=== PATIENT | female | born 1960 | race Caucasian/White ===

== ENCOUNTER 2024-11-11 10:05 | Inpatient (IN) | payer OTHER, MEDICAID, MEDICARE, SELFPAY ==
[2024-11-11] VITALS (13 sets, daily range): BP systolic 150–187; BP diastolic 74–142; PULSE 82–105; RESP 15–20; TEMP 36.7–37.7; O2SAT 95–100; BMI 27.4
--- NOTE | 2024-11-11 11:20 | EKG_ITS ---
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
--- NOTE | 2024-11-11 11:20 | XR_ITS ---
Examination: AP chest single view Technique one AP portable semiupright chest single view Exam date and time: November 11, 2024 1158 hours Comparison August 14, 2024 INDICATIONS: Loss of consciousness today FINDINGS: Normal heart size No aspiration pneumonia Left axillary surgical clips Prominent osteopenia IMPRESSION: No aspiration pneumonia
--- NOTE | 2024-11-11 11:21 | XR_ITS ---
Examination: CT brain head without contrast. 2-D sagittal coronal reconstructions Date and time of exam:November 11, 2024 1225 hours INDICATIONS: Onset altered mental status today COMPARISON: June 10, 2024 CTDI: vol (mGy):51.1 DLP: (mGycm):1076 Technique: Multiple CT axial sections of the brain have been obtained, 5 mm slice thickness. Contrast has not been administered. 2-D sagittal, coronal reconstructions have been obtained Low dose protocols were performed. One or more of the following dose reduction techniques were used; automated exposure control, adjustment of the mA and/or KV according to patient size, use of iterative reconstruction technique. Findings: No significant ventricular enlargement. Intra-axial or extra-axial hemorrhage density is not seen. No mass effect or midline shift Basal cisterns are not remarkable. Fourth ventricle is midline. Cranial vault intact. Impression: Negative for acute hemorrhage, mass effect or midline shift Clinical correlation advised and follow-up accordingly
--- NOTE | 2024-11-11 11:26 | PC.NURSE ---
Addendum entered by Ashleigh Ortiz RN 11/11/24 12:30: @1130- pt soiled with urine upon arrival ; pt placed in new gown and given bed bath with warm bath cloths. Allevyn foam dressing placed in pt's sacrum for protection; no open ulcers but old closed wounds noted. Original Note: BIBA; per EMS report, pt coming from home s/p AMS; firing pin gauger called EMS on her. Pt connected to monitors at this time.
--- NOTE | 2024-11-11 11:40 | XR_ITS ---
Examination: Bilateral hips, AP pelvis, 5 views Technique: AP, lateral views both hips, AP pelvis, 5 views Exam date and time: November 11, 2024 1158 hours INDICATIONS: Patient fell today with injury to the right hip, right hip pain. FINDINGS: Prominent osteopenia No right or left hip fracture or hip dislocation Bones of the pelvis intact IMPRESSION: No acute hip or pelvic fracture If pain persists, consider CT scan pelvis hips without contrast follow-up
--- NOTE | 2024-11-11 11:41 | XR_ITS ---
Examination: Foot, left, 3 views Technique: AP, oblique, lateral views foot, 3 views Date and time of exam: November 11 2024-0 2 hours INDICATIONS: Patient fell today with injury to the foot, foot pain FINDINGS: Severe osteopenia Suspicious for fracture at the base of the proximal phalanx fifth digit No dislocation IMPRESSION: Recommend coned follow-up images of the toes to confirm nondisplaced fracture at the base of the proximal phalanx fifth digit
--- NOTE | 2024-11-11 11:41 | XR_ITS ---
Examination: Tibia-Fibula, right , 2 views Technique: Tibia-fibula AP lateral 2 views Date and time of exam: November 11 2024-0 3 hours INDICATIONS: Patient fell today with injury of the lower leg, lower leg pain. FINDINGS: Prominent osteopenia No fracture or dislocation No opaque foreign body IMPRESSION: No acute fracture
[2024-11-11 12:02] LABS: Collection Type, Urine Clean Catch
[2024-11-11 12:04] LABS: Lactate (Lactic Acid) 2.4 mMol/L (0.4-2.0)
[2024-11-11 12:05] LABS: Basophils # (Auto) 0.1 Thou/mm3 (0.0-0.2); Basophils % (Auto) 0 % (0-2.5); Eosinophils % (Auto) 0 % (0-10); Hematocrit 42.9 % (36.0-46.0); Hemoglobin 14.6 g/dL (12.0-16.0); Immature Granulocytes % (Auto) 0 % (0-0); Immature Granulocytes Auto 0.07 Thou/mm3 (0.00-0.00); Lymphocytes # (Auto) 1.5 Thou/mm3 (1.0-4.8); Lymphocytes % (Auto) 8 % (10-50); Mean Corpuscular Hemoglobin 29.9 pg (25.0-35.0); Mean Corpuscular Volume 88 fL (80-100); Monocytes # (Auto) 1.7 Thou/mm3 (0.0-0.8); Monocytes % (Auto) 9 % (0-12); Neutrophils # (Auto) 14.7 Thou/mm3 (1.8-7.7); Neutrophils % (Auto) 82 % (37-80); Nucleated Red Blood Cell % 0 /100 WBC (0); Platelet Count 272 Thou/mm3 (140-440); RDW Standard Deviation 48.2 fL (36.4-46.3); Red Blood Count 4.88 Miln/mm3 (4.00-5.20)
[2024-11-11 12:07] LABS: Bilirubin,Urine Negative (Negative); Blood,Urine 3+ (Negative); Clarity,Urine Clear (Clear/Hazy); Color,Urine Lt-Yellow (Lt Yel-Yel); Culture Indicated,Urine Not Indicated; Glucose, Urine 3+ (Negative); Ketones,Urine 3+ (Negative); Leukocyte Esterase,Urine Negative (Negative); Nitrite,Urine Negative (Negative); Protein,Urine 2+ (Neg - Trace); RBC,Urine 2 /hpf (0-3); Specific Gravity,Urine 1.015 (1.001-1.035); Squamous Epithelial Cell,Urine < 1 /hpf (0-5); Urobilinogen,Urine Negative mg/dL (0.0-1.0); WBC,Urine 1 /hpf (0-5)
[2024-11-11] MEDS: SODIUM CHLORIDE 0.9% 1000 ML 1,000 ML 999 ML IV (12:14)
[2024-11-11 12:16] LABS: Amphetamine/Methamp Scrn,U Negative (Negative); Barbiturate Screen,Urine Negative (Negative); Benzodiazepines Screen,Urine Negative (Negative); Benzoylecgonine Screen, Ur Negative (Negative); Fentanyl Screen,Urine Negative (Negative); Opiate Screen,Urine Negative (Negative); THC Screen,Urine Negative (Negative)
--- NOTE | 2024-11-11 12:24 | EDNOTE_ITS ---
<Statement entered by Luzmaria Lozada MD - 11/12/24 06:44> As co-signing physician, I was present and available for consult prn. I concur with the plan and care as documented by the midlevel provider. Altered Mental Status RME/HPI General Chief Complaint: Altered Mental Status Stated Complaint: AMS Time Seen by Provider: 11/11/24 11:22 Source: patient Arrival date/time: 11/11/24 10:05 This is a 63-year-old female with history of hypertension, COPD, cervical cancer, anxiety, PAD s/p left hand amputation, frequent falls and bipolar disorder who presents to the ED via EMS for complaints of altered mental status. The patient was found by her caregiver sitting up by her bed with altered mental status. Reports that she last checked on her November 09. Reports going to her home this morning and found her altered sounded confused vomiting her to call 911. She does report the patient was started on 2 new medications by her PCP which were hydroxyzine 25 mg up to 4 times a day for anxiety, and duloxetine. Caregiver does state that she noticed when she began these medications 3 days ago she noticed her sleepier than normal. Caregiver states she noticed the patient was slumped over her foot was caught on the bed she does have bruising on her left foot and an abrasion on her right lower leg. Patient is responsive, however lethargic. Caregiver also reports she has a fracture to her left toes status post a fall 1 week ago. Mode of arrival: ambulatory Related Data Home Medications ?Medication ?Instructions ?Recorded ?Confirmed levothyroxine 25 mcg tablet 50 mcg PO QDAY #0 tabs 08/18/16 11/11/24 gabapentin 800 mg tablet 800 mg PO TID 03/29/18 11/11/24 acetaminophen 325 mg tablet (Pain 650 mg PO 4XD PRN pain 11/11/24 11/11/24 Relief (acetaminophen)) amlodipine 10 mg tablet 10 mg PO QDAY 11/11/24 11/11/24 carvedilol 6.25 mg tablet 6.25 mg PO BID 11/11/24 11/11/24 duloxetine 60 mg capsule,delayed 60 mg PO QDAY 11/11/24 11/11/24 release hydroxyzine HCl 25 mg tablet 25 mg PO QID PRN Anxiety 11/11/24 11/11/24 isosorbide mononitrate 30 mg 30 mg PO QAM 11/11/24 11/11/24 tablet,extended release 24 hr loperamide 2 mg capsule 2 mg PO Q4H PRN Loose Stool 11/11/24 11/11/24 losartan 50 mg tablet 50 mg PO BID 11/11/24 11/11/24 omeprazole 20 mg capsule,delayed 20 mg PO 1XD 11/11/24 11/11/24 release ondansetron 4 mg disintegrating 4 mg PO 4XD PRN Nausea And Vomiting 11/11/24 11/11/24 tablet tizanidine 4 mg capsule (Zanaflex) 8 mg PO Q8H PRN muscle spasticity 11/11/24 11/11/24 Previous Rx's ?Medication ?Instructions ?Recorded buspirone 30 mg tablet 30 mg PO BID #60 tabs 05/30/24 fexofenadine 180 mg tablet 180 mg PO Q24H PRN allergy #30 tabs 06/10/24 (Taylor Allergy) apixaban 5 mg tablet (Eliquis) 5 mg PO BID #10 tabs 07/03/24 Allergies Allergy/AdvReac Type Severity Reaction Status Date / Time codeine Allergy Severe Rash Verified 08/14/24 07:09 meperidine [From Demerol] Allergy Severe Rash Verified 08/14/24 07:09 Sulfa (Sulfonamide Allergy Severe Rash Verified 08/14/24 07:09 Antibiotics) Review of Systems Review of Systems ROS Unobtainable: unobtainable due to mental status ED Exam Narrative Physical exam: GENERAL APPEARANCE: Lethargic, chronically ill-appearing, HEENT: NC, AT. MMM. EOMI, clear conjunctiva, oropharynx clear. HEART: Normal rate and regular rhythm, normal S1/S1, no m/r/g LUNGS: CTAB, moving air well. No crackles or wheezes are heard. ABDOMEN: Soft, nontender, nondistended with good bowel sounds heard. : Normal BACK: No midline C/T/L spine pain or deformity, No CVAT, no obvious deformity. EXTREMITIES: Abrasion noted to right lower chin area, redness noted to right knee. Discoloration ecchymosis noted to second third fourth digit of left foot. NEUROLOGICAL: GCS of 11 CN not formally tested but appear grossly intact. Skin: Warm and dry without any rash. Expanded Neurological Exam Coma scale eye opening: to voice Coma scale motor response: withdraws to pain Coma scale verbal response: confused Coma scale total: 11 Course Quality Measures none Orders Category Date Time Status COVID-19 Screening Questionnaire NOW Care 11/11/24 14:08 Active Decision to Admit X1 Care 11/11/24 14:08 Completed EKG (ED ONLY) *Do not use* NOW Care 11/11/24 11:[address] head/brain wo con Stat Exams 11/11/24 11:21 Completed EKG (ED Only) Stat Exams 11/11/24 11:20 Draft XR chest 1V portable Stat Exams 11/11/24 11:20 Completed XR foot comp LT min 3V Stat Exams 11/11/24 11:41 Completed XR hip BI w pelvis 3-4V Stat Exams 11/11/24 11:40 Completed XR tibia fibula RT 2V Stat Exams 11/11/24 11:41 Completed B-Type Natriuretic Peptide Stat Lab 11/11/24 11:50 Completed Blood Culture (Lab) Stat Lab 11/11/24 11:50 Received CBC Stat Lab 11/11/24 11:50 Completed CK [Creatine Kinase] Stat Lab 11/11/24 12:24 Completed Comprehensive Metabolic Panel Stat Lab 11/11/24 11:50 Completed Drug Screen,Urine Stat Lab 11/11/24 11:47 Completed FLU A&B [Influenza A & B Rapid Panel] Stat Lab 11/11/24 11:21 Ordered Lactate (Lactic Acid) Stat Lab 11/11/24 11:50 Completed Lipase Stat Lab 11/11/24 11:50 Completed Magnesium Stat Lab 11/11/24 11:50 Completed Partial Thromboplastin Time Stat Lab 11/11/24 11:50 Completed Procalcitonin Stat Lab 11/11/24 11:50 Completed Prothrombin Time with INR Stat Lab 11/11/24 11:50 Completed Troponin I Stat Lab 11/11/24 11:50 Completed Urinalysis Stat Lab 11/11/24 11:47 Completed Urinalysis, C/S if Indicated Stat Lab 11/11/24 11:47 Completed Urine Culture Stat Lab 11/11/24 11:47 Received Labetalol IV [Trandate IV] Med 11/11/24 13:24 Discontinued 10 mg IVP X1 ONE Labetalol IV [Trandate IV] Med 11/11/24 14:24 Discontinued 10 mg IVP X1 ONE Labetalol IV [Trandate IV] Med 11/11/24 13:06 Discontinued 20 mg IVP X1 ONE Sodium Chloride 0.9% 1000 ml [Ns] 1,000 ml Med 11/11/24 11:42 Discontinued IV 999 mls/hr cefTRIAXone [Rocephin] 1,000 mg Med 11/11/24 13:04 Discontinued Sodium Chloride 0.9% (P) [Ns 0.9% (P)] 50 ml IV X1 Vital Signs Vital signs: Vital Signs Temperature 98.4 F 11/11/24 10:52 Pulse Rate 82 11/11/24 10:52 Respiratory Rate 15 11/11/24 10:52 Blood Pressure 150/74 H 11/11/24 10:52 Pulse Oximetry (%) 100 11/11/24 10:52 Oxygen Delivery Method Room Air 11/11/24 10:52 Altered Mental Status MDM Narrative MDM Narrative:: This is a 64-year-old female who presented to the emergency department for altered mental status. After speaking with the patient's caregiver the patient is at risk for polypharmacy due to new medications hydroxyzine and duloxetine added to her regimen. Upon arrival patient is obtunded. It appears she was most likely in the same area or bed laying she smells of strong urine. Appropriate labs imaging and testing are ordered upon arrival. Sepsis was ordered due to the patient's labs and vital signs. Antibiotics and liter of fluid ordered. Patient blood pressure is also elevated and treated. Labs Interpreted by me: CMP: CMP as well as lipase are negative. CBC: Mild leukocytosis, no acute anemia. Pro-Jamal negative. Blood cultures ordered pending. Lactic mildly elevated UA: UA is negative. UDS: Negative, neg acetaminophen and salicylate Cardiac: Troponin elevated at 6.1 and CK-MB 1300, BNP elevated 700+ Radiology viewed and interpreted by me: Chest x-ray: Negative for any pneumonia aspiration pneumonia Other x-ray: CT: For acute bleed or hemorrhage At time of reevaluation 1400 patient is more awake most likely GCS 14. Patient is yelling at nurses leave me alone. At this time I do feel the patient requires from admission due to to 1. altered mental status, 2. possible NSTEMI due to elevated troponin, 3 rule out sepsis, 4. Polypharmacy I will go ahead and call the admitting team for admission. I have 1441 I did go ahead and speak to Dr. Murphy cardiology who will accept to consult on the case. DISPOSITION: Emergency Department nursing documentation was reviewed including triage complaint, associated symptoms, administration of medications, response to therapy and vital signs. Given the history, physical exam, and review of laboratory and imaging studies the patient is determined to be unsafe [facility] and is being moved into the hospital for further diagnostic tests, treatments, stabilization, and monitored response to therapy. I communicated the history, physical exam, pertinent laboratory and imaging studies to the inpatient physician. The inpatient physician has access to electronic copies of all emergency department laboratory testing and imaging studies as well as medications ordered and administered Patient data External records reviewed:: [facility] previous records Clinical information provided by:: EMS and utilization manager Social determinants that could affect healthcare access:: none Patient has the following chronic illnesses:: See HPI How is presenting disease/condition affected by chronic disease/condition?: exacerbated by Evaluation data The following diagnostics were reviewed and interpreted by me:: lab results, radiology exam(s) and EKG tracing(s) Lab and/or radiology exams considered but not ordered:: Yes ordered Interpretation Summary: Examination: Tibia-Fibula, right , 2 views Technique: Tibia-fibula AP lateral 2 views Date and time of exam: November 11 2024-0 3 hours INDICATIONS: Patient fell today with injury of the lower leg, lower leg pain. FINDINGS: Prominent osteopenia No fracture or dislocation No opaque foreign body IMPRESSION: No acute fracture Examination: Foot, left, 3 views Technique: AP, oblique, lateral views foot, 3 views Date and time of exam: November 11 2024-0 2 hours INDICATIONS: Patient fell today with injury to the foot, foot pain FINDINGS: Severe osteopenia Suspicious for fracture at the base of the proximal phalanx fifth digit No dislocation IMPRESSION: Recommend coned follow-up images of the toes to confirm nondisplaced fracture at the base of the proximal phalanx fifth digit Examination: Bilateral hips, AP pelvis, 5 views Technique: AP, lateral views both hips, AP pelvis, 5 views Exam date and time: November 11, 2024 1158 hours INDICATIONS: Patient fell today with injury to the right hip, right hip pain. FINDINGS: Prominent osteopenia No right or left hip fracture or hip dislocation Bones of the pelvis intact IMPRESSION: No acute hip or pelvic fracture If pain persists, consider CT scan pelvis hips without contrast follow-up Examination: CT brain head without contrast. 2-D sagittal coronal reconstructions Date and time of exam:November 11, 2024 1225 hours INDICATIONS: Onset altered mental status today COMPARISON: June 10, 2024 CTDI: vol (mGy):51.1 DLP: (mGycm):1076 Technique: Multiple CT axial sections of the brain have been obtained, 5 mm slice thickness. Contrast has not been administered. 2-D sagittal, coronal reconstructions have been obtained Low dose protocols were performed. One or more of the following dose reduction techniques were used; automated exposure control, adjustment of the mA and/or KV according to patient size, use of iterative reconstruction technique. Findings: No significant ventricular enlargement. Intra-axial or extra-axial hemorrhage density is not seen. No mass effect or midline shift Basal cisterns are not remarkable. Fourth ventricle is midline. Cranial vault intact. Impression: Negative for acute hemorrhage, mass effect or midline shift Clinical correlation advised and follow-up accordingly Examination: AP chest single view Technique one AP portable semiupright chest single view Exam date and time: November 11, 2024 1158 hours Comparison August 14, 2024 INDICATIONS: Loss of consciousness today FINDINGS: Normal heart size No aspiration pneumonia Left axillary surgical clips Prominent osteopenia IMPRESSION: No aspiration pneumonia Medications / Prescriptions Medications or Prescriptions considered but not ordered:: No Medication administrations:: Medication Administration History Discontinued Medications Sodium Chloride (Ns) 1,000 mls @ 999 mls/hr IV .Q1H1M ONE Stop: 11/11/24 12:42 Last Admin: 11/11/24 12:14 Dose: 999 mls/hr Documented By: MAXIMUS Ceftriaxone Sodium 1,000 mg/ (Sodium Chloride) 50 mls @ 100 mls/hr IV X1 ONE Stop: 11/11/24 13:33 Last Infusion: 11/11/24 14:21 Dose: Infused Documented By: Admin: 11/11/24 13:33 Dose: 100 mls/hr Documented By: ONELIA Labetalol HCl (Labetalol Inj 5 Mg/Ml Vial 20 Ml) 20 mg IVP X1 ONE Stop: 11/11/24 13:07 Last Admin: 11/11/24 13:25 Dose: Not Given Documented By: ONELIA Non-Admin Reason: Duplicate Medication on eMAR Labetalol HCl (Labetalol Inj 5 Mg/Ml Vial 20 Ml) 10 mg IVP X1 ONE Stop: 11/11/24 13:25 Last Admin: 11/11/24 13:32 Dose: 10 mg Documented By: ONELIA Labetalol HCl (Labetalol Inj 5 Mg/Ml Vial 20 Ml) 10 mg IVP X1 ONE Stop: 11/11/24 14:25 Last Admin: 11/11/24 15:32 Dose: Not Given Documented By: MAXIMUS Non-Admin Reason: Patient Refused All medications administered and effective Consultations Consultation(s) initiated? (list below): Yes Diagnosis Differential diagnosis altered mental status: alcoholic intoxication, altered mental status, delirium, dementia, hypoglycemia, hyponatremia, subarachnoid hemorrhage and sepsis Most likely diagnosis given after review of the tests above:: 1. altered mental status, 2. possible NSTEMI due to elevated troponin, 3 rule out sepsis, 4. Polypharmacy Admission Indicated Admission indicated?: indicated Admission Request Was there a request for admission?: Yes Admission Attestation Admission request attestation: Discussed case with [] from Hospitalist service regarding admission. Discussed patients ED course, exam findings, labs, and radiology results. The Hospitalist [agrees,declines] to accept the patient for admission. Disposition Plan Disposition Plan: Admit Discharge Plan Plan Patient Disposition: Admit Acute Care w/in Hospital Prescriptions/Referrals Prescriptions/Med Rec: No Action levothyroxine 25 mcg Tablet 50 mcg PO QDAY Qty: 0 gabapentin 800 mg Tablet 800 mg PO TID fexofenadine [Taylor Allergy] 180 mg tablet 180 mg PO Q24H PRN (Reason: allergy) Qty: 30 0RF carvedilol 6.25 mg Tablet 6.25 mg PO BID Rx Instructions: must administer with a meal/food loperamide 2 mg Capsule 2 mg PO Q4H PRN (Reason: Loose Stool) Rx Instructions: administer after each loose stool until symptoms controlled; do not exceed 8 mg per 24 hrs isosorbide mononitrate 30 mg Tablet Extended Release 24 Hr 30 mg PO QAM amlodipine 10 mg Tablet 10 mg PO QDAY omeprazole 20 mg capsule,delayed release(DR/EC) 20 mg PO 1XD hydroxyzine HCl 25 mg Tablet 25 mg PO QID PRN (Reason: Anxiety) ondansetron 4 mg tablet,disintegrating 4 mg PO 4XD PRN (Reason: Nausea And Vomiting) duloxetine 60 mg Capsule,Delayed Release(Dr/Ec) 60 mg PO QDAY losartan 50 mg tablet 50 mg PO BID acetaminophen [Pain Relief (acetaminophen)] 325 mg tablet 650 mg PO 4XD PRN (Reason: pain) tizanidine [Zanaflex] 4 mg capsule 8 mg PO Q8H PRN (Reason: muscle spasticity) buspirone 30 mg tablet 30 mg PO BID Qty: 60 2RF Eliquis 5 mg tablet 5 mg PO BID Qty: 10 0RF Referrals: David Dietz [Primary Care Provider] - In 1 week Problem List Clinical Impression: AMS (altered mental status), Polypharmacy, Elevated troponin, Non-ST elevation LA (NSTEMI) Patient/Caregiver Discharge Instructions Print Language: Mongolian Stand Alone Forms: Mila Award Info., Patient Portal Info Letter
[2024-11-11 12:26] LABS: INR 1.1 (0.9-1.3); Partial Thromboplastin Time 24.3 Seconds (22.0-36.0); Prothrombin Time 11.9 Seconds (9.0-12.2)
[2024-11-11 12:41] LABS: Alanine Aminotransferase 31 U/L (10-49); Albumin, Serum 4.8 gm/dL (3.4-4.8); Albumin/Globulin Ratio 1.8 (1.2-2.2); Alkaline Phosphatase 108 U/L (46-116); Anion Gap 9 (7-16); Aspartate Amino Transferase 162 U/L (0-34); B-Type Natriuretic Peptide 700 pg/mL (0-100); BUN/Creatinine Ratio 21 Ratio (12-20); Bilirubin,Total 0.5 mg/dL (0.3-1.2); Blood Urea Nitrogen 17 mg/dL (9-23); Calcium 10.3 mg/dL (8.3-10.6); Calcium (Corrected) 10.3 mg/dL (8.5-10.1); Carbon Dioxide 25.3 mMol/L (20.0-31.0); Chloride 105 mMol/L (98-107); Creatinine (Component) 0.8 mg/dL (0.6-1.3); Estimated Creatinine Clearance 65.9 mL/min (>60); Globulin 2.7 gm/dL (2.3-3.5); Glucose 259 mg/dL (74-106); Lipase 22 U/L (12-53); Magnesium 1.6 mg/dL (1.6-2.6); Osmolality,Calculated 288 (275-295); Potassium 3.3 mMol/L (3.4-5.1); Procalcitonin 0.14 ng/ml (0.0-0.49); Sodium 139 mMol/L (136-145); Total Protein 7.5 gm/dL (5.7-8.2); eGFR > 60 See Note
[2024-11-11 12:44] LABS: Troponin I 6.154 ng/mL (0.0-0.045)
[2024-11-11 12:47] LABS: Creatine Kinase > 1300 U/L (34-171)
[2024-11-11] MEDS: LABETALOL INJ 5 MG/ML VIAL 20 ML 10 MG IVP (13:32)
[2024-11-11] MEDS: cefTRIAXone 1,000 MG in SODIUM CHLORIDE 0.9% (P) 50 ML 100 MG IV (13:33)
--- NOTE | 2024-11-11 14:41 | PC.NURSE ---
Pt refuses to straighten left arm to open vein for IVF infusion. Pt continues to say nope, nope, nope .
--- NOTE | 2024-11-11 14:45 | PC.NURSE ---
RN AT BEDSIDE; PT REFUSING MEDICATIONS AT THIS TIME. PT L ARM WITH THE IV, PT CONTINUES TO BEND L ARM; IV BOLUS UNABLE TO INFUSE AT THIS TIME. PT CONTINUES TO YELL AT PT, STATING, NO, DO YOU WANT ME TO POP OFF ON YOU? @7500- PRISCA Olvia ASPHALT SPREADER AT BEDSIDE AND MADE AWARE THAT PT IS REFUSING CARE AT THIS TIME. @3463- DR. BELTRAN AT BEDSIDE TALKING TO PT. PT STILL REFUSING CARE; PER DR. BELTRAN, PT WANTS TO LEAVE AMA; RECOMMENDED TO STAY FOR ADMISSION, BUT REFUSING AT THIS TIME.
--- NOTE | 2024-11-11 14:55 | PC.NURSE ---
Addendum entered by Amaya Hernandez RN 11/11/24 15:21: @1521- RN CALLED PT'S SON AGAIN VIA PHONE, NO ANSWER. UNABLE TO LEAVE VOICEMAIL. Original Note: RN ATTEMPTED TO CONTACT PT'S SON, CAROL, VIA PHONE; NO ANSWER AT THIS TIME.
[2024-11-11 14:59] LABS: Reflex Lactate? Y
--- NOTE | 2024-11-11 15:11 | ESCONSULT_ITS ---
<Statement entered by Sherri Negrete MD - 11/16/24 14:16> I reviewed above note and agree with findings and plans. I have also personally examined the patient with medicine team and went over assessment and plan with medical team including legal internship and resident physician. HPI Data of Consult Patient: new to practice Consult date: 11/11/24 Attending Provider: Sherri Negrete Primary Care Provider: David Dietz Consult Narrative Reason for consult: Altered mentation and elevated troponins History of present illness: Ms. Jacobs is a 64-year-old female with past medical history of emr-[id number] type 2 diabetes, hypertension, COPD, cervical cancer, anxiety, peripheral arterial disease status post left hand amputation and history of bipolar disorder that was obtained from chart review came to the [facility] brought in by EMS with a chief complaint of altered mentation. History was obtained from the chart and emergency room provider. Patient was at home without supervision and was found by her caregiver to be drinking water out of her shoes and exhibiting odd behaviors. Her director business systems states that she has recently been prescribed new medications by PCP and that potentially that caused her altered mentation. She was brought in by EMS and while she remained altered they were able to obtain labs which exhibited a leukocytosis elevated troponin of 6.154 elevated creatinine kinase elevated BNP and transaminitis. Patient was also noted to have hypertension on vitals with blood pressure being in the 180s. Cardiology was consulted by emergency room and recommended that the patient is admitted for further workup. Primary team went down to obtain history from the patient but patient refused to participate stating that she would like to be left alone. She also stated that she would not like to be admitted and would like to go home. We recommended to the patient that she is admitted for further workup due to the elevated troponins and potential rhabdomyolysis but the patient refused stating that she would like to go home. Multiple attempts were made to reach out to patient's next of kin but [facility] Patient is primary decision- maker and is coherent and is refusing to participate in history taking, physical exam and medical plan. We recommend patient is admitted to the hospital but due to her refusal we cannot force her to obtain medical care. Please feel free to consult internal medicine primary team if patient agrees to accept medical care Plan of care discussed with supervising attending Dr. Caden Constantino.D. PGY-3 cc:: cc: Exam Vital Signs Temp Pulse Resp BP Pulse Ox O2 Del Method 99.0 F 95 20 187/93 H 96 Room Air 11/11/24 12:36 11/11/24 14:46 11/11/24 14:46 11/11/24 14:46 11/11/24 14:46 11/11/24 14:46 Results Labs 11/11/24 11:50 11/11/24 11:50 Labs: Short CBC 11/11/24 Range/Units 11:50 WBC 18.0 H (3.6-11.0) Thou/mm3 Hgb 14.6 (12.0-16.0) g/dL Hct 42.9 (36.0-46.0) % Plt Count 272 (140-440) Thou/mm3 BMP 11/11/24 11:50 Sodium 139 Potassium 3.3 L Chloride 105 Carbon Dioxide 25.3 BUN 17 Creatinine 0.8 Glucose 259 H Calcium 10.3 Cardiac Enzymes 11/11/24 11/11/24 Range/Units 11:50 12:24 Total Creatine Kinase > 1300 H (34-171) U/L Troponin I 6.154 H* (0.0-0.045) ng/mL Liver Function 11/11/24 Range/Units 11:50 Total Bilirubin 0.5 (0.3-1.2) mg/dL AST 162 H (0-34) U/L ALT 31 (10-49) U/L Alkaline Phosphatase 108 (46-116) U/L Albumin 4.8 (3.4-4.8) gm/dL Urine 11/11/24 Range/Units 11:47 Urine Color Lt-Yellow (Lt Yel-Yel) Urine Clarity Clear (Clear/Hazy) Urine pH 6.0 (5.0-7.0) Ur Specific [place] 1.015 (1.001-1.035) Urine Protein 2+ A (Neg - Trace) Urine Glucose (UA) 3+ A (Negative) Quality Measures Quality Measures none Advance care planning discussed with:: other Medications Home Medications and Allergies Home Medications ?Medication ?Instructions ?Recorded ?Confirmed ?Type levothyroxine 25 mcg tablet 50 mcg PO QDAY #0 tabs 08/18/16 11/11/24 History gabapentin 800 mg tablet 800 mg PO TID 03/29/18 11/11/24 History acetaminophen 325 mg tablet (Pain 650 mg PO 4XD PRN pain 11/11/24 11/11/24 History Relief (acetaminophen)) amlodipine 10 mg tablet 10 mg PO QDAY 11/11/24 11/11/24 History carvedilol 6.25 mg tablet 6.25 mg PO BID 11/11/24 11/11/24 History duloxetine 60 mg capsule,delayed 60 mg PO QDAY 11/11/24 11/11/24 History release hydroxyzine HCl 25 mg tablet 25 mg PO QID PRN Anxiety 11/11/24 11/11/24 History isosorbide mononitrate 30 mg 30 mg PO QAM 11/11/24 11/11/24 History tablet,extended release 24 hr loperamide 2 mg capsule 2 mg PO Q4H PRN Loose Stool 11/11/24 11/11/24 History losartan 50 mg tablet 50 mg PO BID 11/11/24 11/11/24 History omeprazole 20 mg capsule,delayed 20 mg PO 1XD 11/11/24 11/11/24 History release ondansetron 4 mg disintegrating 4 mg PO 4XD PRN Nausea And Vomiting 11/11/24 11/11/24 History tablet tizanidine 4 mg capsule (Zanaflex) 8 mg PO Q8H PRN muscle spasticity 11/11/24 11/11/24 History Allergies Allergy/AdvReac Type Severity Reaction Status Date / Time codeine Allergy Severe Rash Verified 08/14/24 07:09 meperidine [From Demerol] Allergy Severe Rash Verified 08/14/24 07:09 Sulfa (Sulfonamide Allergy Severe Rash Verified 08/14/24 07:09 Antibiotics) Visit Medications Discontinued Medications Sodium Chloride (Ns) 1,000 mls @ 999 mls/hr IV .Q1H1M ONE Stop: 11/11/24 12:42 Last Admin: 11/11/24 12:14 Dose: 999 mls/hr Ceftriaxone Sodium 1,000 mg/ (Sodium Chloride) 50 mls @ 100 mls/hr IV X1 ONE Stop: 11/11/24 13:33 Last Infusion: 11/11/24 14:21 Dose: Infused Labetalol HCl (Labetalol Inj 5 Mg/Ml Vial 20 Ml) 20 mg IVP X1 ONE Stop: 11/11/24 13:07 Last Admin: 11/11/24 13:25 Dose: Not Given Labetalol HCl (Labetalol Inj 5 Mg/Ml Vial 20 Ml) 10 mg IVP X1 ONE Stop: 11/11/24 13:25 Last Admin: 11/11/24 13:32 Dose: 10 mg Labetalol HCl (Labetalol Inj 5 Mg/Ml Vial 20 Ml) 10 mg IVP X1 ONE Stop: 11/11/24 14:25
--- NOTE | 2024-11-11 18:28 | PD.RESHP ---
Documentation for date of: 11/11/24 [facility] History of Present Illness History of present illness: MONE Jacobs is a 64-year-old female with a past medical history of type 2 diabetes mellitus, hypertension, COPD, peripheral arterial disease status post left hand amputation, anxiety, and bipolar disorder who presents to the ED with altered mentation. Patient continues to have altered mentation during encounter, this history obtained from chart review. She was found at home by her oracle security consultant, Kimberly, who had not seen her since 11/09. Fire Controlman states that when she had found her, patient was exhibiting odd behaviors. Of note, oracle security consultant also states that patient was recently prescribed new medications by PCP (hydroxyzine, duloxetine) and has noticed her to be sleepier than normal. Significant labs showed leukocytosis, troponin 6.15, BNP 700, CK > 1300, hypokalemia (3.3). Due to elevated troponin and BNP as well as elevated BP of 180/110, cardiology was consulted by ED, who recommended patient to be admitted for treatment of ACS. After talking to cardiology, patient agreed to be admitted. Review of Systems Review of Systems ROS Unobtainable: unobtainable due to mental status Exam Vital Signs Temp Pulse Resp BP Pulse Ox O2 Del Method 98.0 F 92 17 159/85 H 97 Room Air 11/11/24 18:12 11/11/24 18:12 11/11/24 18:12 11/11/24 18:12 11/11/24 18:12 11/11/24 18:12 Narrative Exam General: in no acute distress, responds to questions but repeats answers HEENT: NC/AT, mucous membranes moist, bilateral sclera anicteric Cardiovascular: regular rate and rhythm, S1/S2 present, no murmurs appreciated Pulmonary: clear to auscultation bilaterally, no rales/rhonchi/wheezes Abdominal: soft, non-tender, non-distended, no rebound/guarding, normal bowel sounds present Musculoskeletal: left hand amputation Skin: warm and dry, intact, no rashes Neuro: CN II-XII intact, no focal deficits Results: Labs 11/12/24 07:10 11/12/24 07:10 Labs: Short CBC 11/11/24 Range/Units 11:50 WBC 18.0 H (3.6-11.0) Thou/mm3 Hgb 14.6 (12.0-16.0) g/dL Hct 42.9 (36.0-46.0) % Plt Count 272 (140-440) Thou/mm3 BMP 11/11/24 11:50 Sodium 139 Potassium 3.3 L Chloride 105 Carbon Dioxide 25.3 BUN 17 Creatinine 0.8 Glucose 259 H Calcium 10.3 Cardiac Enzymes 11/11/24 11/11/24 Range/Units 11:50 12:24 Total Creatine Kinase > 1300 H (34-171) U/L Troponin I 6.154 H* (0.0-0.045) ng/mL Liver Function 11/11/24 Range/Units 11:50 Total Bilirubin 0.5 (0.3-1.2) mg/dL AST 162 H (0-34) U/L ALT 31 (10-49) U/L Alkaline Phosphatase 108 (46-116) U/L Albumin 4.8 (3.4-4.8) gm/dL Urine 11/11/24 Range/Units 11:47 Urine Color Lt-Yellow (Lt Yel-Yel) Urine Clarity Clear (Clear/Hazy) Urine pH 6.0 (5.0-7.0) Ur Specific [place] 1.015 (1.001-1.035) Urine Protein 2+ A (Neg - Trace) Urine Glucose (UA) 3+ A (Negative) Quality Measures Quality Measures none Advance care planning discussed with:: patient Medications Home Medications and Allergies Home Medications ?Medication ?Instructions ?Recorded ?Confirmed ?Type levothyroxine 25 mcg tablet 50 mcg PO QDAY #0 tabs 08/18/16 11/11/24 History gabapentin 800 mg tablet 800 mg PO TID 03/29/18 11/11/24 History acetaminophen 325 mg tablet (Pain 650 mg PO 4XD PRN pain 11/11/24 11/11/24 History Relief (acetaminophen)) amlodipine 10 mg tablet 10 mg PO QDAY 11/11/24 11/11/24 History carvedilol 6.25 mg tablet 6.25 mg PO BID 11/11/24 11/11/24 History duloxetine 60 mg capsule,delayed 60 mg PO QDAY 11/11/24 11/11/24 History release hydroxyzine HCl 25 mg tablet 25 mg PO QID PRN Anxiety 11/11/24 11/11/24 History isosorbide mononitrate 30 mg 30 mg PO QAM 11/11/24 11/11/24 History tablet,extended release 24 hr loperamide 2 mg capsule 2 mg PO Q4H PRN Loose Stool 11/11/24 11/11/24 History losartan 50 mg tablet 50 mg PO BID 11/11/24 11/11/24 History omeprazole 20 mg capsule,delayed 20 mg PO 1XD 11/11/24 11/11/24 History release ondansetron 4 mg disintegrating 4 mg PO 4XD PRN Nausea And Vomiting 11/11/24 11/11/24 History tablet tizanidine 4 mg capsule (Zanaflex) 8 mg PO Q8H PRN muscle spasticity 11/11/24 11/11/24 History Allergies Allergy/AdvReac Type Severity Reaction Status Date / Time codeine Allergy Severe Rash Verified 08/14/24 07:09 meperidine [From Demerol] Allergy Severe Rash Verified 08/14/24 07:09 Sulfa (Sulfonamide Allergy Severe Rash Verified 08/14/24 07:09 Antibiotics) Visit Medications Sodium Chloride (Ns) 1,000 mls @ 150 mls/hr IV .Q6H40M ALAN Stop: 11/12/24 07:34 Discontinued Medications Sodium Chloride (Ns) 1,000 mls @ 999 mls/hr IV .Q1H1M ONE Stop: 11/11/24 12:42 Last Admin: 11/11/24 12:14 Dose: 999 mls/hr Ceftriaxone Sodium 1,000 mg/ (Sodium Chloride) 50 mls @ 100 mls/hr IV X1 ONE Stop: 11/11/24 13:33 Last Infusion: 11/11/24 14:21 Dose: Infused Labetalol HCl (Labetalol Inj 5 Mg/Ml Vial 20 Ml) 20 mg IVP X1 ONE Stop: 11/11/24 13:07 Last Admin: 11/11/24 13:25 Dose: Not Given Labetalol HCl (Labetalol Inj 5 Mg/Ml Vial 20 Ml) 10 mg IVP X1 ONE Stop: 11/11/24 13:25 Last Admin: 11/11/24 13:32 Dose: 10 mg Labetalol HCl (Labetalol Inj 5 Mg/Ml Vial 20 Ml) 10 mg IVP X1 ONE Stop: 11/11/24 14:25 Last Admin: 11/11/24 15:32 Dose: Not Given Assessment & Plan Plan MONE Jacobs is a 64-year-old female with a past medical history of type 2 diabetes mellitus, hypertension, COPD, peripheral arterial disease status post left hand amputation, anxiety, and bipolar disorder who is admitted for work-up of ACS. #Acute coronary syndrome workup #Elevated troponins EKG without signs of ST changes ? Cardiology consulted, appreciate recommendations ? Planned [employer] tomorrow ? N.p.o. after midnight ? Trend troponins ? Heparin drip ? Aspirin, statin ? Metoprolol 50 mg p.o. twice daily #Altered mental status #? Rhabdomyolysis versus neuroleptic malignant syndrome Patient started 2 new medications, including hydroxyzine and duloxetine Total CK greater than 1300, UA showed 3+ blood but no RBCs ? NS at 150 mL/h (total 2 bags) #Hypokalemia K 3.3 on admission, repleted with 20 mEq ? Monitor labs #Type 2 diabetes mellitus ? SSI ? Follow-up A1c #Bipolar disorder #Anxiety Med rec done but will hold off on antipsychotic medications as may be contributing patient presentation ? Resume as deemed appropriate Hospital management: Disposition: Pending cardiac cath tomorrow Fluids: NS at 150 mL/h Diet: N.p.o. after midnight Lines: Peripheral DVT prophylaxis: Heparin drip GI prophylaxis: Pantoprazole [place]: Placed CODE STATUS: full code ----- Plan discussed with attending physician Dr. Gardner and senior resident physician Dr. Arely Aguilera MD PGY-1 Internal Medicine Attending Provider Attestation/Addendum I attest that I was physically present for the evaluation, physical examination, lab and imaging review of the patient with the residents. I discussed the case with the residents and agree with the findings and plans of care as documented above. Patient is a 64-year-old female with a past medical history of type 2 diabetes mellitus, hypertension, COPD, peripheral arterial disease status post left hand amputation, anxiety, and bipolar disorder who presented with Altered mental status. She was fond by her oracle security consultant showing odd behaviours. She is noted to have some bruises on her lower extremities. In the ED she was found to have levated troponin, CK, WBC and was hypokalemic. Cardiology was consulted, recommended admission for Acute coronary syndrome. We will start heparin drip, aspirin, statin, beta jose manuel. IV hydration for Rhabdomyolysis. Dylan Gardner MD
[2024-11-11] MEDS: HEPARIN SOD INJ 5000 UNIT/ML VIAL 4000 UNIT IV (18:45)
[2024-11-11] MEDS: ASPIRIN EC 81 MG TABEC PO (18:45)
[2024-11-11] MEDS: METOPROLOL TARTRATE 25 MG TABLET 50 MG PO (18:45)
[2024-11-11] MEDS: Heparin/D5w 25K 250 ML Ivpb 25,000 UNIT/250 ML BAG 8.437 UNIT IV (18:48)
[2024-11-11] MEDS: SODIUM CHLORIDE 0.9% 1000 ML 1,000 ML 150 ML IV (18:49)
[2024-11-11] MEDS: POTASSIUM CHL 10 mEq IVPB 10 MEQ/100 ML BAG 100 MEQ IV ×2 (18:52→20:25)
--- NOTE | 2024-11-11 19:32 | PC.NURSE ---
Pt refusing catheter at this time. Will attempt again at later point.
[2024-11-11] MEDS: INSULIN LISPRO (AdmeLOG) 1 UNIT/0.01 ML UNIT SC (20:35)
[2024-11-11] MEDS: hydrALAZINE INJ 20 MG/ML VIAL 10 MG IV (20:42)
--- NOTE | 2024-11-11 20:44 | PC.NURSE ---
Attempted to give pt PO Lipitor but she refused. Pt swatted at RN saying no, I don't want it. Leave me alone .
--- NOTE | 2024-11-11 21:41 | PC.NURSE ---
pt had bm. new linen, purewick and brief put into place. pt repositioned with pillows in pressure point areas.
--- NOTE | 2024-11-11 22:39 | PC.NURSE ---
Pt agreed to manuel. Tolerating well.
--- NOTE | 2024-11-11 23:32 | ESCONSULT_ITS ---
RE: MONE MOODY : 1960 DATE OF CONSULTATION: 11/11/2024 CONSULTING PHYSICIAN: Hospitalist. REASON FOR CONSULTATION: Evaluation of elevated troponin and possible myocardial infarction. CHIEF COMPLAINT: Altered mental status and chest pain. HISTORY OF PRESENT ILLNESS: The patient is a 64-year-old female with a past medical history of hypertension, diabetes, COPD, peripheral arterial disease, status post left hand amputation, anxiety, bipolar disorder and other multiple issues. Apparently was found by her home fulfillment specialist with confusion and she was behaving oddly. She apparently was given new medication hydroxyzine and duloxetine by primary care physician. She has been sleepy since then. When I examined her, her blood pressure was high. She was able to give me some history. She says she has had recurrent chest pressure and chest pain in the last few days. Today also she had episode of chest pain in substernal region, left-sided chest pain. Troponin was significantly elevated at 6.5, . BNP was elevated as well. The patient is comfortable now, not having any complaints. EKG showed nonspecific changes. Other lab data included a white count elevation of 18,000, maybe underlying infection as well. Because of these findings and possible myocardial infarction, admitted to the hospital with IV anticoagulation and possible angiogram depending on the clinical symptoms. ALLERGIES: NONE. MEDICATIONS AT HOME: She is on multiple medications at home. 1. Eliquis is listed, not sure why she is on. 2. She is also on carvedilol 6.25 twice daily. 3. Amlodipine 10 daily. 4. Losartan was also listed, 50 mg twice daily for hypertension. 5. Isosorbide mononitrate 30 mg daily, suggesting the patient may be having chest pain. 6. Duloxetine 60 mg daily. 7. Hydroxyzine also was given. 8. Tizanidine 4 mg daily. PAST MEDICAL HISTORY: Hypertension, diabetes, hypercholesterolemia, history of type 2 diabetes mellitus, bipolar disorder, anxiety. REVIEW OF SYSTEMS: CARDIOVASCULAR: History of recurrent chest pain and shortness of breath. GASTROINTESTINAL: No history of nausea or vomiting. GENITOURINARY: No history of frequency or dysuria. PHYSICAL EXAMINATION: GENERAL: A well-nourished, acutely ill, chronically ill female. Alert, awake, in no acute distress. VITAL SIGNS: Blood pressure 158/88, pulse rate is 85, respiratory rate 18, temperature normal. HEENT: Head is atraumatic and normocephalic. Eyes normal. ENT normal. NECK: Supple. No JVD. Carotid pulse felt, but no bruits. CHEST: Symmetrical. LUNGS: Clear. HEART: S1 and S2 regular. No murmur or gallops. ABDOMEN: Thin and soft. EXTREMITIES: Mild edema. GENITOURINARY AND RECTAL: Not performed. Electrocardiogram shows sinus rhythm, nonspecific changes. Cardiac enzymes show troponin elevated at 6.5. IMPRESSION/ASSESSMENT: 1. Chest pain with acute troponin elevation of 6.5, non-ST segment elevation myocardial infarction. 2. Hypertension. 3. Anxiety and bipolar disorder. 4. Confusion, possibly drug related. 5. Diabetes mellitus. 6. Hypercholesterolemia. RECOMMENDATIONS: I would recommend the patient be admitted to hospital. Aspirin and heparin. Treat with beta-jose manuel, metoprolol 50 mg daily, TONJA inhibitors and also restart the patient on losartan 50 mg b.i.d. and IV heparin. If the patient continues to have chest pain or further enzyme elevation or EKG changes, we will do coronary angiogram tomorrow. Otherwise, treat underlying possible infection or sepsis. There is mild lactic acidosis and white count elevation and possibly defer angiogram later on. Depending on the clinical picture, we will decide whether we should do angiogram tomorrow or later on. DT: 22:46:57 TT: 23:27:00 Ref: [id number] - TID: [id number]
--- NOTE | 2024-11-11 23:50 | PC.NURSE ---
Pt arrived to unit @0948. Pt only alert to self and location. Unable to obtain medical history from patient to complete admission questions at this time.
--- NOTE | 2024-11-11 23:54 | PC.NURSE ---
Addendum entered by Gisselle Figueredo RN 11/12/24 01:13: Per Dr. Bravo ok for lab to draw am 0500 labs with scheduled 0620 trop lab this am. Addendum entered by Gisselle Figueredo RN 11/12/24 01:12: Dr. Bravo called and made aware admission questions not able to be completed at this time due to pts ams, made her aware pt refusing perales cath insertion. Original Note: Pt arrived to unit @ 2307; Pt only alert to self and location; attempted to ask questions regarding medical history but patient forgetful at this time and not able to answer medical questions appropriately. Pt observed to have abrasions and small blisters to Lower extremities, pt not able to remember what happened. Pictures taken of affected areas. Pt does not remember caretakers phone number; Attempted to call david Neely but he states he is not sure about pts medical history and not able to provide information. He also states he does not know care takers phone number.
[2024-11-12] VITALS (7 sets, daily range): BP systolic 132–164; BP diastolic 70–103; PULSE 59–81; RESP 13–79; TEMP 35.9–36.5; O2SAT 93–98; BMI 34.0
[2024-11-12 01:10] LABS: Partial Thromboplastin Time 34.5 Seconds (22.0-36.0)
[2024-11-12] MEDS: HEPARIN SOD INJ 5000 UNIT/ML VIAL 4000 UNIT IV (01:34)
[2024-11-12 01:35] LABS: Troponin I 6.018 ng/mL (0.0-0.045)
[2024-11-12] MEDS: SODIUM CHLORIDE 0.9% 1000 ML 1,000 ML 150 ML IV (01:45)
[2024-11-12 02:37] LABS: Influenza A Ag Negative; Influenza B Ag Negative
[2024-11-12 07:26] LABS: Basophils % (Auto) 0 % (0-2.5); Eosinophils % (Auto) 0 % (0-10); Hematocrit 41.7 % (36.0-46.0); Hemoglobin 14.2 g/dL (12.0-16.0); Immature Granulocytes % (Auto) 0 % (0-0); Immature Granulocytes Auto 0.06 Thou/mm3 (0.00-0.00); Lactate (Lactic Acid) 1.6 mMol/L (0.4-2.0); Lymphocytes # (Auto) 2.4 Thou/mm3 (1.0-4.8); Lymphocytes % (Auto) 16 % (10-50); Mean Corpuscular HGB Conc 34.1 g/dl (31.0-37.0); Mean Corpuscular Hemoglobin 30.3 pg (25.0-35.0); Mean Corpuscular Volume 89 fL (80-100); Monocytes # (Auto) 1.4 Thou/mm3 (0.0-0.8); Monocytes % (Auto) 10 % (0-12); Neutrophils # (Auto) 10.5 Thou/mm3 (1.8-7.7); Neutrophils % (Auto) 73 % (37-80); Nucleated Red Blood Cell % 0 /100 WBC (0); Platelet Count 245 Thou/mm3 (140-440); RDW Standard Deviation 48.8 fL (36.4-46.3); Red Blood Count 4.68 Miln/mm3 (4.00-5.20); White Blood Count 14.4 Thou/mm3 (3.6-11.0)
[2024-11-12 07:44] LABS: Glucose Estimated Average 160 mg/dL (80-131); Hemoglobin A1C 7.2 % Hgb (4.8-6.0)
[2024-11-12 07:58] LABS: INR 1.1 (0.9-1.3); Partial Thromboplastin Time 64.6 Seconds (22.0-36.0); Prothrombin Time 11.9 Seconds (9.0-12.2)
[2024-11-12 08:08] LABS: Alanine Aminotransferase 56 U/L (10-49); Albumin, Serum 4.5 gm/dL (3.4-4.8); Albumin/Globulin Ratio 1.9 (1.2-2.2); Alkaline Phosphatase 94 U/L (46-116); Anion Gap 9 (7-16); Aspartate Amino Transferase 167 U/L (0-34); BUN/Creatinine Ratio 17 Ratio (12-20); Bilirubin,Total 0.6 mg/dL (0.3-1.2); Blood Urea Nitrogen 12 mg/dL (9-23); Calcium 9.6 mg/dL (8.3-10.6); Calcium (Corrected) 9.6 mg/dL (8.5-10.1); Carbon Dioxide 24.8 mMol/L (20.0-31.0); Cardiac Risk Estimate 4.6 RATIO (3.7-5.6); Chloride 107 mMol/L (98-107); Cholesterol 188 mg/dL (132-200); Creatinine (Component) 0.7 mg/dL (0.6-1.3); Estimated Creatinine Clearance 83.8 mL/min (>60); Globulin 2.4 gm/dL (2.3-3.5); Glucose 196 mg/dL (74-106); HDL Cholesterol 41 mg/dL (40-60); LDL Cholesterol,Calculated 108 mg/dL (0-130); Magnesium 1.6 mg/dL (1.6-2.6); Osmolality,Calculated 285 (275-295); Phosphorous 1.8 mg/dL (2.4-5.1); Potassium 2.8 mMol/L (3.4-5.1); Sodium 141 mMol/L (136-145); Total Protein 6.9 gm/dL (5.7-8.2); Triglycerides 197 mg/dL (30-150); eGFR > 60 See Note
[2024-11-12 08:09] LABS: Troponin I 5.111 ng/mL (0.0-0.045)
[2024-11-12 08:55] LABS: Creatine Kinase 5231 U/L (34-171)
--- NOTE | 2024-11-12 09:41 | PC.SS ---
Patient Rosi Jacobs is a 64 Year old female admitted for Altered Mental Status. SS met with patient at bedside in order to complete initial assessment. Patient was able to answer questions, however patient reported she was having Chest pain at the time of the encounter. SS informed patients nurse, Ulisses. SS contacted patient's son, Guadalupe Tellez who is patient's medical decision maker. He he reported patient lives alone and has a [facility] provider at home. Patient is able to ambulate with a Rollator Walker and does need mild assistance completing ADL's. Patients Pharmacy of choice is [facility] and PCP is David Dietz. At time of discharge patient will return home. Family will provide transportation. Next of kin: Guadalupe Tellez Discharge Plan: Home PCP: David Dietz
[2024-11-12] MEDS: PANTOPRAZOLE INJ 40 MG VIAL IVP (09:42)
[2024-11-12] MEDS: ASPIRIN 81 MG CHEW PO (09:42)
[2024-11-12] MEDS: METOPROLOL TARTRATE 25 MG TABLET 50 MG PO (09:42)
[2024-11-12] MEDS: POTASSIUM CHLORIDE 20 mEq TABCR 40 MEQ PO (09:42)
[2024-11-12] MEDS: LEVOTHYROXINE SODIUM 25 MCG TABLET 50 MCG PO (09:42)
[2024-11-12] MEDS: LOSARTAN POTASSIUM 25 MG TABLET 50 MG PO (09:42)
[2024-11-12] MEDS: Magnesium Sulfate 2 GM Ivpb 2 GM/50 ML BAG IV (09:57)
[2024-11-12] MEDS: POTASSIUM PHOS 22.5 MMOL in SODIUM CHLORIDE 0.9% 500 ML 500 ML 82.778 MMOL IV (09:57)
--- NOTE | 2024-11-12 10:52 | PCS.ST ---
Swallow Evaluation completed. See report for details. Limited results d/t poor compliance. Functional pharyngeal swallow. Dysphagia 1/Regular liquids. ST will follow up.
[2024-11-12] MEDS: SODIUM CHLORIDE 0.9% 1000 ML 1,000 ML 125 ML IV (11:27)
[2024-11-12] MEDS: INSULIN LISPRO (AdmeLOG) 1 UNIT/0.01 ML UNIT SC ×2 (11:27→16:47)
[2024-11-12] MEDS: POTASSIUM CHL 10 mEq IVPB 10 MEQ/100 ML BAG 100 MEQ IV ×4 (12:29→15:55)
--- NOTE | 2024-11-12 12:44 | ESPR_ITS ---
<Statement entered by Sushila Murphy MD - 11/13/24 14:58> The patient continues to be somewhat confused but much better than yesterday not have any further chest pain shortness breath still has some confusion continue IV heparin for NSTEMI cardiac echo will be reviewed echo Doppler studies performed later today. Does not complain of any chest pain shortness of breath continue IV heparin tomorrow we will see her again reevaluate with further plans may require coronary angiogram depending on her clinical history when she is much more alert and oriented. Evaluate the patient essential components are reviewed agree with the treatment plan recommendation as documented by PGY 2 Dr. Jordan Knight MD Documentation for date of: 11/12/24 Subjective Subjective Interval history: Patient seen and assessed at bedside. Patient continues to be slightly confused, does not know location or date. Patient is poor historian. Patient does report continued chest pain and points to sternum, and states pain is nonradiating. There is also pain on palpation of chest, but states it feels different from chest pain. Patient continues on heparin with stable hemoglobin. Exam Vital Signs Temp Pulse Resp BP Pulse Ox O2 Del Method 97.2 F 78 18 147/85 H 98 Room Air 11/12/24 08:00 11/12/24 09:42 11/12/24 08:00 11/12/24 09:42 11/12/24 08:00 11/12/24 08:00 Narrative Exam General: in no acute distress, AO x 1 only to self. Responds to questions but repeats answers Cardiovascular: regular rate and rhythm, S1/S2 present, no murmurs appreciated Pulmonary: clear to auscultation bilaterally, no rales/rhonchi/wheezes Abdominal: soft, non-tender, non-distended, no rebound/guarding, normal bowel sounds present Musculoskeletal: left hand amputation, no edema noted lower extremities. Skin: warm and dry, intact, no rashes Objective Labs 11/12/24 07:10 11/12/24 07:10 Labs: Laboratory Results - last 24 hr 11/11/24 11/11/24 11/11/24 11:50 12:24 21:14 WBC RBC Hgb Hct MCV MCH MCHC RDW Std Deviation Plt Count Neut % (Auto) Lymph % (Auto) [place] % (Auto) Eos % (Auto) Baso % (Auto) Neut # (Auto) Lymph # (Auto) [place] # (Auto) Eos # (Auto) Baso # (Auto) Immature Gran # (Auto) Absolute Nucleated RBC Immature Gran % Nucleated RBC % PT INR APTT Sodium 139 Potassium 3.3 L Chloride 105 Carbon Dioxide 25.3 Anion Gap 9 BUN 17 Creatinine 0.8 Estim Creat Clear Calc 65.9 eGFR > 60 BUN/Creatinine Ratio 21 H Glucose [address] Glu mg/dL Hemoglobin A1c Calculated Osmolality 288 Lactic Acid Calcium 10.3 Corrected Calcium 10.3 H Phosphorus Magnesium 1.6 Total Bilirubin 0.5 AST 162 H ALT 31 Alkaline Phosphatase 108 Total Creatine Kinase > 1300 H Troponin I 6.154 H* 5.850 H* D Total Protein 7.5 Albumin 4.8 Globulin 2.7 Albumin/Globulin Ratio 1.8 Triglycerides Cholesterol LDL Cholesterol, Calc HDL Cholesterol Cholesterol/HDL Ratio Lipase 22 Procalcitonin 0.14 Influenza A (Rapid) Influenza B (Rapid) 11/12/24 11/12/24 11/12/24 00:09 00:43 06:20 WBC RBC Hgb Hct MCV MCH MCHC RDW Std Deviation Plt Count Neut % (Auto) Lymph % (Auto) [place] % (Auto) Eos % (Auto) Baso % (Auto) Neut # (Auto) Lymph # (Auto) [place] # (Auto) Eos # (Auto) Baso # (Auto) Immature Gran # (Auto) Absolute Nucleated RBC Immature Gran % Nucleated RBC % PT 11.9 INR 1.1 APTT 34.5 D 64.6 H D Sodium Potassium Chloride Carbon Dioxide Anion Gap BUN Creatinine Estim Creat Clear Calc eGFR BUN/Creatinine Ratio Glucose Estimated Ave Glu mg/dL Hemoglobin A1c Calculated Osmolality Lactic Acid Calcium Corrected Calcium Phosphorus Magnesium Total Bilirubin AST ALT Alkaline Phosphatase Total Creatine Kinase Troponin I 6.018 H* Total Protein Albumin Globulin Albumin/Globulin Ratio Triglycerides Cholesterol LDL Cholesterol, Calc HDL Cholesterol Cholesterol/HDL Ratio Lipase Procalcitonin Influenza A (Rapid) Negative Influenza B (Rapid) Negative 11/12/24 07:10 WBC 14.4 H RBC 4.68 Hgb 14.2 Hct 41.7 MCV 89 MCH 30.3 MCHC 34.1 RDW Std Deviation 48.8 H Plt Count 245 Neut % (Auto) 73 Lymph % (Auto) 16 [place] % (Auto) 10 Eos % (Auto) 0 Baso % (Auto) 0 Neut # (Auto) 10.5 H Lymph # (Auto) 2.4 [place] # (Auto) 1.4 H Eos # (Auto) 0.0 Baso # (Auto) 0.0 Immature Gran # (Auto) 0.06 H Absolute Nucleated RBC 0.00 Immature Gran % 0 Nucleated RBC % 0 PT INR APTT Sodium 141 Potassium 2.8 L D Chloride 107 Carbon Dioxide 24.8 Anion Gap 9 BUN 12 Creatinine 0.7 Estim Creat Clear Calc 83.8 eGFR > 60 BUN/Creatinine Ratio 17 Glucose [address] Glu mg/dL 160 H Hemoglobin A1c 7.2 H Calculated Osmolality 285 Lactic Acid 1.6 Calcium 9.6 Corrected Calcium 9.6 Phosphorus 1.8 L Magnesium 1.6 Total Bilirubin 0.6 AST 167 H ALT 56 H Alkaline Phosphatase 94 Total Creatine Kinase 5231 H D Troponin I 5.111 H* D Total Protein 6.9 Albumin 4.5 Globulin 2.4 Albumin/Globulin Ratio 1.9 Triglycerides 197 H Cholesterol 188 LDL Cholesterol, Calc 108 HDL Cholesterol 41 Cholesterol/HDL Ratio 4.6 Lipase Procalcitonin Influenza A (Rapid) Influenza B (Rapid) Quality Measures Quality Measures none Advance care planning discussed with:: patient Assessment & Plan Assessment Current Active Medications: Generic Name Dose Route Start Last Admin Trade Name Freq PRN Reason Stop Dose Admin Acetaminophen 650 mg 11/11/24 18:13 Acetaminophen Supp 650 Mg Supp [place] 12/11/24 18:12 Q6HR PRN PAIN OR FEVER > 101 Aspirin 81 mg 11/12/24 09:00 11/12/24 09:42 Aspirin 81 Mg Chew PO 12/12/24 08:59 81 mg QDAY ALAN Administration Atorvastatin Calcium 40 mg 11/11/24 21:00 11/11/24 20:46 Atorvastatin Calcium 20 Mg Tablet PO 12/11/24 20:59 Not Given HS ALAN Dextrose 25 ml 11/11/24 18:18 Dextrose 50%-Water Inj 50 Ml Syringe IV 12/11/24 18:17 Q15MIN PRN BG 50-70 responsive npo pt Dextrose 50 ml 11/11/24 18:18 Dextrose 50%-Water Inj 50 Ml Syringe IV 12/11/24 18:17 Q15MIN PRN BG <50 OR BG <70 & pt unresponsive Glucagon 1 mg 11/11/24 18:18 Glucagon Inj 1 Mg Vial IM Q15MIN PRN BG <70, and no IV access Heparin Sodium/Dextrose 25,000 unit in 250 mls @ 8.437 mls/hr 11/11/24 18:30 11/12/24 01:33 Heparin In D5w Ivpb IV 11/13/24 18:29 16 units/kg/hr .Q24H ALAN 11.249 mls/hr Titration Protocol 12 UNITS/KG/HR Potassium Phosphate 22.5 mmol/ 507.5 mls @ 82.778 mls/hr 11/12/24 08:30 11/12/24 09:57 Sodium Chloride IV 11/12/24 14:37 82.778 mls/hr X1 ONE Administration Sodium Chloride 1,000 mls @ 125 mls/hr 11/12/24 10:20 11/12/24 11:27 Ns IV 11/12/24 18:19 125 mls/hr .Q8H ONE Administration Potassium Chloride 10 meq in 100 mls @ 100 mls/hr 11/12/24 12:30 11/12/24 12:29 Kcl Ivpb IV 11/12/24 16:29 100 mls/hr Q1H ALAN Administration Insulin Glargine 10 unit 11/12/24 10:15 11/12/24 10:22 Insulin Glargine (Lantus) 5 Unit/0.05 Ml (Per 5 Units) SC 12/12/24 10:14 Not Given QDAY ALAN Insulin Human Lispro 0 unit 11/11/24 21:00 11/12/24 11:27 Insulin Lispro (Admelog) 1 Unit/0.01 Ml Unit SC 12/11/24 20:59 2 unit ACHS ALAN Administration Protocol Levothyroxine Sodium 50 mcg 11/12/24 07:45 11/12/24 09:42 Levothyroxine Sodium 25 Mcg Tablet PO 12/12/24 07:44 50 mcg ACBR ALAN Administration Losartan Potassium 50 mg 11/12/24 09:00 11/12/24 09:42 Losartan Potassium 25 Mg Tablet PO 12/12/24 08:59 50 mg BID ALAN Administration Metoprolol Succinate 50 mg 11/13/24 09:00 Metoprolol Succinate Xl 25 Mg Tabcr PO 12/13/24 08:59 QDAY ALAN Ondansetron HCl 4 mg 11/11/24 18:13 Ondansetron Inj 2 Mg/Ml Inj 2 Ml IV 12/11/24 18:12 Q6H PRN NAUSEA OR VOMITING Protocol Pantoprazole Sodium 40 mg 11/12/24 09:00 11/12/24 09:42 Pantoprazole Inj 40 Mg Vial IVP 12/12/24 08:59 40 mg QDAY ALAN Administration Plan [facility] Jacobs is a 64-year-old female with a past medical history of type 2 diabetes mellitus, hypertension, COPD, peripheral arterial disease status post left hand amputation, anxiety, and bipolar disorder who is admitted. Cardiology consulted for ACS workup. # NSTEMI type 1 versus type II # Troponinanemia ?EKG without signs of ST changes ?Troponin peaked at 6.1 ?Continue heparin drip ? Continue aspirin, statin ?Continue metoprolol 50 mg p.o. ?Cardiac echo pending ?Patient continues to complain of chest pain might benefit from Retail Marketing Coordinator once more CK clears to decrease chance of PAMELA from contrast #Altered mental status #Rhabdomyolysis vs neuroleptic malignant syndrome #Hypokalemia #Type 2 diabetes mellitus #Bipolar disorder #Anxiety To be managed by primary team Case discussed with sheet rock layer Dr. Jeffrey Knight MD PGY3
--- NOTE | 2024-11-12 13:22 | ECHO_ITS ---
Transthoracic Echo Report Ht (in): 63 Wt (lb): 192 Exam Location: [facility] Status: Inpatient Fixed Income Analyst: Britney Basilio Indications: Procedure Performed: BP: 143 / 70 HR: 75 Rhythm: Sinus Technical Quality: Fair MEASUREMENTS (Male / Female) Normal Values 2D ECHO LV Diastolic Diameter PLAX 4.3 cm 4.2 - 5.9 / 3.9 - 5.3 cm LV Systolic Diameter PLAX 3.2 cm IVS Diastolic Thickness 1.1 cm 0.6 - 1.0 / 0.6 - 0.9 cm LVPW Diastolic Thickness 0.9 cm 0.6 - 1.0 / 0.6 - 0.9 cm LV Relative Wall Thickness 0.5 LVOT Diameter 1.7 cm LA Volume Index 18.5 cm?/m? 16 - 28 cm?/m? DOPPLER AV Peak Velocity 139.0 cm/s AV Peak Gradient 7.7 mmHg AV Mean Gradient 4.0 mmHg AV Velocity Time Integral 35.6 cm LVOT Peak Velocity 96.0 cm/s LVOT Peak Gradient 3.7 mmHg LVOT Velocity Time Integral 23.7 cm LVOT Cardiac Index 2012.7 cm?/min?m? AV Area Cont Eq vti 1.5 cm? AV Area Cont Eq pk 1.6 cm? MV Peak Velocity 110.0 cm/s MV Peak Gradient 4.8 mmHg MV Mean Velocity 52.8 cm/s MV Mean Gradient 2.0 mmHg MV Area PHT 4.1 cm? Mitral E Point Velocity 115.0 cm/s Mitral A Point Velocity 104.0 cm/s Mitral E to A Ratio 1.1 LV E' Lateral Velocity 5.5 cm/s Mitral E to LV E' Lateral Ratio 20.7 LV E' Septal Velocity 5.4 cm/s Mitral E to LV E' Septal Ratio 21.1 FINDINGS Left Ventricle Normal left ventricular size, wall thickness, systolic function with no obvious regional wall motion abnormalities. The ejection fraction is visually estimated at 50-55%. Right Ventricle The right ventricle is normal in size and systolic function. Left Atrium The left atrium is normal by two-dimensional, color flow and Doppler imaging with no structural abnormalities, no thrombus formation present. Right Atrium The right atrium is normal by two-dimensional imaging, color flow and Doppler imaging with no struct ural abnormalities, no thrombus formation present. Atrial Septum The interatrial septum appears normal with no evidence of a shunt. Aorta The aorta is normal by two-dimensional, color flow and Doppler interrogation. Mitral Valve The mitral valve is mildly MAC. There is trace mitral valve regurgitation. Aortic Valve The aortic valve is trileaflet and normal by two-dimensional, color flow and Doppler interrogation. There is mild aortic valve regurgitation. Tricuspid Valve The tricuspid valve is normal by two-dimensional, color flow and Doppler interrogation. There is tra ce tricuspid valve regurgitation. Pulmonic Valve The pulmonic valve is not well visualized. There is no significant pulmonic valve regurgitation. Vessels The pulmonary artery appears normal. The inferior vena cava pulmonary and hepatic veins appear jb l. Pericardium The pericardium is normal by two-dimensional imaging. There is no significant pericardial effusion. CONCLUSIONS Normal LV size and function. normal wall motion Estimated EF 55% Normal RV size and function Mild MAC with trace MR Mild TR Racheal Schumacher (Electronically Signed) Final Date: 13 November 2024 11:16
[2024-11-12 14:19] LABS: Partial Thromboplastin Time 57.3 Seconds (22.0-36.0)
--- NOTE | 2024-11-12 14:38 | ESPR_ITS ---
<Statement entered by Medhat Larry MD - 11/12/24 16:03> Patient was seen and examined at the bedside. Patient continues to remain altered and per patient's caregiver at home, brother was contacted and he reported that patiently was recently started on hydroxyzine and duloxetine which might be the reason of her altered mentation. Assistant Professor Of Anthropology recommended to continue heparin drip for 24 hours and likely discontinue tomorrow. Continue IV fluids for rhabdomyolysis as creatinine kinase increased to 5000. Potassium was repleted 80 mEq x 1. Patient did pass swallow screen and was started on dysphagia diet. Initially patient refused echocardiogram therefore a new echocardiogram was ordered and patient was reassured that we need to follow-up with that and if it significant glass cleaner recommended that he would like to cardiac angiogram. Troponin I has been downtrending. Blood cultures and urine cultures pending. All labs and orders were reviewed. I saw and examined the patient, and I agree with current management stated by Dr Brannon MD,PGY1. Plan of care was discussed with the attending physician and resident physician. Disclaimer: Despite multiple revisions, due to the dictation software being used, the document bellow may not be free of grammatical errors including phonetic/typographic errors. However, this does not deter from our commitment to providing health care in the patient's best interest in mind. Dr. Joy MD, PGY 2 Documentation for date of: 11/12/24 Subjective Subjective Interval history: No overnight events. Patient seen and examined at bedside, resting comfortably. Patient A&Ox1, complains of tiredness. Followed commands appropriately, was uncooperative when receiving medications. Patient unable to give detailed answers to questions. Contacted patient's caregiver, who listed patients brother as decision maker - Arjun Alcala [phone]. He reported patient had unknown procedure for a heart issue three years ago. No cath today, will follow up on echo. Exam Vital Signs Temp Pulse Resp BP Pulse Ox O2 Del Method O2 Flow Rate 96.6 F L 75 79 H 143/70 H 93 L Nasal Cannula 5 11/12/24 12:00 11/12/24 12:00 11/12/24 12:00 11/12/24 12:00 11/12/24 12:00 11/12/24 12:11/12/24 12:00 Narrative Exam PE: Gen: Well-developed and well-nourished. HEENT: NCAT, PERRLA, EOMI, MMM, anicteric conjunctivae. CVS: normal S1 and S2. RRR. No M/R/G. Resp: CTA B/L. No rhonchi, rales, crackles or wheezing. Abd: soft, non-tender, non-distended. MSK: Good ROM in BUE & BLE. No edema or rash. Left hand amputation. Neuro: CN II-XII grossly intact. Strength 5/5 in BUE & BLE. A&Ox1, follows commands, answers simple questions. Objective Labs 11/12/24 07:10 11/12/24 07:10 Labs: Laboratory Results - last 24 hr 11/11/24 11/12/24 11/12/24 21:14 00:09 00:43 WBC RBC Hgb Hct MCV MCH MCHC RDW Std Deviation Plt Count Neut % (Auto) Lymph % (Auto) [place] % (Auto) Eos % (Auto) Baso % (Auto) Neut # (Auto) Lymph # (Auto) [place] # (Auto) Eos # (Auto) Baso # (Auto) Immature Gran # (Auto) Absolute Nucleated RBC Immature Gran % Nucleated RBC % PT INR APTT 34.5 D Sodium Potassium Chloride Carbon Dioxide Anion Gap BUN Creatinine Estim Creat Clear Calc eGFR BUN/Creatinine Ratio Glucose Estimated Ave Glu mg/dL Hemoglobin A1c Calculated Osmolality Lactic Acid Calcium Corrected Calcium Phosphorus Magnesium Total Bilirubin AST ALT Alkaline Phosphatase Total Creatine Kinase Troponin I 5.850 H* D 6.018 H* Total Protein Albumin Globulin Albumin/Globulin Ratio Triglycerides Cholesterol LDL Cholesterol, Calc HDL Cholesterol Cholesterol/HDL Ratio Influenza A (Rapid) Negative Influenza B (Rapid) Negative 11/12/24 11/12/24 11/12/24 06:20 07:10 13:23 WBC 14.4 H RBC 4.68 Hgb 14.2 Hct 41.7 MCV 89 MCH 30.3 MCHC 34.1 RDW Std Deviation 48.8 H Plt Count 245 Neut % (Auto) 73 Lymph % (Auto) 16 [place] % (Auto) 10 Eos % (Auto) 0 Baso % (Auto) 0 Neut # (Auto) 10.5 H Lymph # (Auto) 2.4 [place] # (Auto) 1.4 H Eos # (Auto) 0.0 Baso # (Auto) 0.0 Immature Gran # (Auto) 0.06 H Absolute Nucleated RBC 0.00 Immature Gran % 0 Nucleated RBC % 0 PT 11.9 INR 1.1 APTT 64.6 H D 57.3 H Sodium 141 Potassium 2.8 L D Chloride 107 Carbon Dioxide 24.8 Anion Gap 9 BUN 12 Creatinine 0.7 Estim Creat Clear Calc 83.8 eGFR > 60 BUN/Creatinine Ratio [address] Glucose [address] Glu mg/dL 160 H Hemoglobin A1c 7.2 H Calculated Osmolality 285 Lactic Acid 1.6 Calcium 9.6 Corrected Calcium 9.6 Phosphorus 1.8 L Magnesium 1.6 Total Bilirubin 0.6 AST 167 H ALT 56 H Alkaline Phosphatase 94 Total Creatine Kinase 5231 H D Troponin I 5.111 H* D Total Protein 6.9 Albumin 4.5 Globulin 2.4 Albumin/Globulin Ratio 1.9 Triglycerides 197 H Cholesterol 188 LDL Cholesterol, Calc 108 HDL Cholesterol 41 Cholesterol/HDL Ratio 4.6 Influenza A (Rapid) Influenza B (Rapid) Quality Measures Quality Measures VTE prophylaxis Advance care planning discussed with:: patient Assessment & Plan Assessment Current Active Medications: Generic Name Dose Route Start Last Admin Trade Name Freq PRN Reason Stop Dose Admin Acetaminophen 650 mg 11/11/24 18:13 Acetaminophen Supp 650 Mg Supp [place] 12/11/24 18:12 Q6HR PRN PAIN OR FEVER > 101 Aspirin 81 mg 11/12/24 09:00 11/12/24 09:42 Aspirin 81 Mg Chew PO 12/12/24 08:59 81 mg QDAY ALAN Administration Atorvastatin Calcium 40 mg 11/11/24 21:00 11/11/24 20:46 Atorvastatin Calcium 20 Mg Tablet PO 12/11/24 20:59 Not Given HS ALAN Dextrose 25 ml 11/11/24 18:18 Dextrose 50%-Water Inj 50 Ml Syringe IV 12/11/24 18:17 Q15MIN PRN BG 50-70 responsive npo pt Dextrose 50 ml 11/11/24 18:18 Dextrose 50%-Water Inj 50 Ml Syringe IV 12/11/24 18:17 Q15MIN PRN BG <50 OR BG <70 & pt unresponsive Glucagon 1 mg 11/11/24 18:18 Glucagon Inj 1 Mg Vial IM Q15MIN PRN BG <70, and no IV access Heparin Sodium/Dextrose 25,000 unit in 250 mls @ 8.437 mls/hr 11/11/24 18:30 11/12/24 01:33 Heparin In D5w Ivpb IV 11/13/24 18:29 16 units/kg/hr .Q24H ALAN 11.249 mls/hr Titration Protocol 12 UNITS/KG/HR Sodium Chloride 1,000 mls @ 125 mls/hr 11/12/24 10:20 11/12/24 11:27 Ns IV 11/12/24 18:19 125 mls/hr .Q8H ONE Administration Potassium Chloride 10 meq in 100 mls @ 100 mls/hr 11/12/24 12:30 11/12/24 13:28 Kcl Ivpb IV 11/12/24 16:29 100 mls/hr Q1H ALAN Administration Insulin Glargine 10 unit 11/12/24 10:15 11/12/24 10:22 Insulin Glargine (Lantus) 5 Unit/0.05 Ml (Per 5 Units) SC 12/12/24 10:14 Not Given QDAY ALAN Insulin Human Lispro 0 unit 11/11/24 21:00 11/12/24 11:27 Insulin Lispro (Admelog) 1 Unit/0.01 Ml Unit SC 12/11/24 20:59 2 unit ACHS ALAN Administration Protocol Levothyroxine Sodium 50 mcg 11/12/24 07:45 11/12/24 09:42 Levothyroxine Sodium 25 Mcg Tablet PO 12/12/24 07:44 50 mcg ACBR ALAN Administration Losartan Potassium 50 mg 11/12/24 09:00 11/12/24 09:42 Losartan Potassium 25 Mg Tablet PO 12/12/24 08:59 50 mg BID ALAN Administration Metoprolol Succinate 50 mg 11/13/24 09:00 Metoprolol Succinate Xl 25 Mg Tabcr PO 12/13/24 08:59 QDAY ALAN Ondansetron HCl 4 mg 11/11/24 18:13 Ondansetron Inj 2 Mg/Ml Inj 2 Ml IV 12/11/24 18:12 Q6H PRN NAUSEA OR VOMITING Protocol Pantoprazole Sodium 40 mg 11/12/24 09:00 11/12/24 09:42 Pantoprazole Inj 40 Mg Vial IVP 12/12/24 08:59 40 mg QDAY ALAN Administration Plan [facility] is a 64-year-old female with a past medical history of type 2 diabetes mellitus, hypertension, COPD, peripheral arterial disease status post left hand amputation, anxiety, and bipolar disorder who is admitted for work-up of ACS. #Acute coronary syndrome workup #Elevated troponins EKG without signs of ST changes. Cardiology deferring laboratory apparatus glass blower pending echo. Troponins peaked at 6. -Cardiology consulted, appreciate recommendations -Heparin drip -Aspirin, statin -Metoprolol succinate 50 mg p.o. daily -Losartan 50mg PO BID -Follow up echo -cardiac monitoring #Rhabdomyolysis Patient found down on floor for unknown period of time. CK elevated at 5231. Does not report muscle pain or swelling, unreliable historian. Kidney function normal. -IVF: LR 125 ml/hr. -Monitor CK and kidney function #Altered mental status Patient started 2 new medications, including hydroxyzine and duloxetine day before first experiencing lethargy and AMS. Remains lethargic, follows commands can only answer simple commands. -Hold psych meds. -Monitor #Constipation Patient reports several days since last bowel movement. -Senna, docusate, milk of magnesia PRN #Hypokalemia K 3.3 on admission, repleted with 20 mEq -Monitor labs #Type 2 diabetes mellitus Patient history DM. A1c 7.2% as of 11/12/24. -SSI -Lantus 10 units daily #Bipolar disorder #Anxiety Med rec done but will hold off on antipsychotic medications as may be contributing patient presentation -Resume as deemed appropriate DVT prophylaxis: Heparin drip GI prophylaxis: Protonix Diet: Cardiac, dysphagia level 1, carb consistent Lines: Peripheral IV Code status: Full Code Plan of care discussed with senior resident Dr. Larry and attending Dr. Gardner. Ugo South MD PGY-1 Attending Provider Attestation/Addendum I attest that I was physically present for the evaluation, physical examination, lab and imaging review of the patient with the residents. I discussed the case with the residents and agree with the findings and plans of care as documented above. At bedside patient continues to be uncooperative on and off, only answers simple questions when cooperative. Troponin peaked at 6.154. Continues to be on heparin gtt, aspirin, statin, beta jose manuel and ARB. Cardiology following, recommended medical management for now. CK elevated compared to yesterday, patient is not having enough oral intake. We will continue with IV hydration. We will continue to replete electrolytes as needed, adjust insulin regimen for diabetes. Dylan Gardner MD
--- NOTE | 2024-11-12 16:19 | PC.SS ---
Rounding note; Nephro rec's pending.
[2024-11-12] MEDS: Heparin/D5w 25K 250 ML Ivpb 25,000 UNIT/250 ML BAG 11.249 UNIT IV (19:29)
--- NOTE | 2024-11-12 20:41 | PC.NURSE ---
patient is refusing all 2100 medications, is refusing ptt lab blood drawn for heparin drip, made notified, stated they will come up to floor to speak to patient.
[2024-11-12 22:38] LABS: Partial Thromboplastin Time 45.8 Seconds (22.0-36.0)
[2024-11-12] MEDS: HEPARIN SOD INJ 5000 UNIT/ML VIAL 2000 UNIT IV (23:12)
[2024-11-13] VITALS (13 sets, daily range): BP systolic 148–184; BP diastolic 63–90; PULSE 64–80; RESP 18–23; TEMP 36.1–36.7; O2SAT 96–100; BMI 13.0
--- NOTE | 2024-11-13 03:30 | PC.NURSE ---
RECEIVED PATIENT FROM [facility].
[2024-11-13] MEDS: LEVOTHYROXINE SODIUM 25 MCG TABLET 50 MCG PO (05:32)
[2024-11-13 06:10] LABS: Basophils % (Auto) 0 % (0-2.5); Eosinophils # (Auto) 0.1 Thou/mm3 (0.0-0.5); Eosinophils % (Auto) 1 % (0-10); Hemoglobin 13.1 g/dL (12.0-16.0); Immature Granulocytes % (Auto) 1 % (0-0); Immature Granulocytes Auto 0.05 Thou/mm3 (0.00-0.00); Lymphocytes # (Auto) 2.5 Thou/mm3 (1.0-4.8); Lymphocytes % (Auto) 23 % (10-50); Mean Corpuscular HGB Conc 33.6 g/dl (31.0-37.0); Mean Corpuscular Volume 89 fL (80-100); Monocytes # (Auto) 1.1 Thou/mm3 (0.0-0.8); Monocytes % (Auto) 10 % (0-12); Neutrophils # (Auto) 7.3 Thou/mm3 (1.8-7.7); Neutrophils % (Auto) 67 % (37-80); Nucleated Red Blood Cell % 0 /100 WBC (0); Platelet Count 218 Thou/mm3 (140-440); RDW Standard Deviation 49.5 fL (36.4-46.3); Red Blood Count 4.37 Miln/mm3 (4.00-5.20); White Blood Count 10.9 Thou/mm3 (3.6-11.0)
[2024-11-13 06:49] LABS: Alanine Aminotransferase 51 U/L (10-49); Albumin/Globulin Ratio 1.8 (1.2-2.2); Alkaline Phosphatase 84 U/L (46-116); Anion Gap 9 (7-16); Aspartate Amino Transferase 118 U/L (0-34); BUN/Creatinine Ratio 18 Ratio (12-20); Bilirubin,Total 0.6 mg/dL (0.3-1.2); Blood Urea Nitrogen 11 mg/dL (9-23); Calcium 9.1 mg/dL (8.3-10.6); Calcium (Corrected) 9.1 mg/dL (8.5-10.1); Chloride 106 mMol/L (98-107); Creatinine (Component) 0.6 mg/dL (0.6-1.3); Estimated Creatinine Clearance 97.8 mL/min (>60); Globulin 2.2 gm/dL (2.3-3.5); Glucose 170 mg/dL (74-106); Magnesium 1.7 mg/dL (1.6-2.6); Osmolality,Calculated 282 (275-295); Phosphorous 2.1 mg/dL (2.4-5.1); Sodium 140 mMol/L (136-145); Total Protein 6.2 gm/dL (5.7-8.2); eGFR > 60 See Note
[2024-11-13 06:59] LABS: Partial Thromboplastin Time 77.9 Seconds (22.0-36.0)
[2024-11-13] MEDS: POT PHOS 15 mMol in NS 250 ML 15 MMOL/250 ML BAG 62.5 MMOL IV ×2 (08:00→13:54)
[2024-11-13] MEDS: SODIUM CHLORIDE 0.9% 1000 ML 1,000 ML 150 ML IV ×2 (08:00→16:35)
[2024-11-13] MEDS: PANTOPRAZOLE INJ 40 MG VIAL IVP (08:20)
[2024-11-13] MEDS: LOSARTAN POTASSIUM 25 MG TABLET 50 MG PO ×2 (08:20→20:56)
[2024-11-13] MEDS: DOCUSATE SOD LIQD 100 MG/10 ML UDC PO ×2 (08:20→20:56)
[2024-11-13] MEDS: ASPIRIN 81 MG CHEW PO (08:21)
[2024-11-13] MEDS: METOPROLOL SUCCINATE XL 25 MG TABCR 50 MG PO (08:21)
[2024-11-13] MEDS: POTASSIUM CHLORIDE 20 mEq TABCR 40 MEQ PO (08:21)
[2024-11-13] MEDS: Magnesium Sulfate 2 GM Ivpb 2 GM/50 ML BAG IV ×2 (08:22→09:32)
[2024-11-13] MEDS: NAPH,KPH MBDB 1 PACKET (1.5 GM) 2 PACKET PO (08:23)
[2024-11-13] MEDS: INSULIN GLARGINE (Lantus) 5 UNIT/0.05 ML (PER 5 UNITS) 2 UNIT SC (08:26)
[2024-11-13 09:45] LABS: Creatine Kinase 3033 U/L (34-171)
[2024-11-13] MEDS: POTASSIUM CHLORIDE 10% 20 MEQ/15 ML UDC 40 MEQ PO ×2 (10:00→11:34)
--- NOTE | 2024-11-13 10:05 | ESPR_ITS ---
Documentation for date of: 11/13/24 Subjective Subjective Interval history: Patient was seen and examined at the bedside. Patient is currently AOx3 and normal confused today. She stated that she does not remember or recall yesterday events. She wanted to go home however she was explained that we are currently waiting on echocardiogram. No acute overnight events were reported. Vitals reviewed blood pressure mildly hypertensive 148/83. Saturating well on room air. Labs revealed white count and hemoglobin stable. Chemistry panel showed mild hypokalemia with hypophosphatemia and mild hypomagnesium. LFTs improving. Creatinine kinase down trended to 3000. Lead Clinical Research Coordinator recommended to continue heparin drip and keep her n.p.o. after midnight on Friday. Plan for cardiac catheterization on Friday. Basal insulin regime was adjusted as blood sugars remain elevated. Blood cultures and urine cultures are negative. Electrolytes were repleted as necessary. All labs and orders were reviewed. Exam Vital Signs Temp Pulse Resp BP Pulse Ox O2 Del Method O2 Flow Rate 97.2 F 79 18 155/76 H 96 Room Air 5 11/13/24 08:00 11/13/24 08:21 11/13/24 08:00 11/13/24 08:21 11/13/24 08:00 11/13/24 08:00 11/12/24 12:00 Narrative Exam GENERAL APPEARANCE: Patient is AOx3 elderly female in no acute distress. Saturating well on room air. HEENT: NC, AT. MMM. EOMI, clear conjunctiva, oropharynx clear. NECK: Supple without lymphadenopathy. No stiffness or restricted ROM. HEART: Regular rate and regular rhythm, normal S1/S2, no m/r/g LUNGS: CTAB, moving air well. No crackles or wheezes are heard. ABDOMEN: Soft, nontender, nondistended with good bowel sounds heard. BACK: No CVAT, no obvious deformity. EXTREMITIES: Left upper extremity amputated. NEUROLOGICAL: Grossly nonfocal. Alert and orientedx3. Skin: Warm and dry without any rash. Psych: Appropriate mood and affect Objective Labs 11/14/24 05:09 11/14/24 05:09 Labs: Laboratory Results - last 24 hr 11/12/24 11/12/24 11/13/24 13:23 22:03 05:19 WBC 10.9 RBC 4.37 Hgb 13.1 Hct 39.0 MCV 89 MCH 30.0 MCHC 33.6 RDW Std Deviation 49.5 H Plt Count 218 Neut % (Auto) 67 Lymph % (Auto) 23 [place] % (Auto) 10 Eos % (Auto) 1 Baso % (Auto) 0 Neut # (Auto) 7.3 Lymph # (Auto) 2.5 [place] # (Auto) 1.1 H Eos # (Auto) 0.1 Baso # (Auto) 0.0 Immature Gran # (Auto) 0.05 H Absolute Nucleated RBC 0.00 Immature Gran % 1 H Nucleated RBC % 0 APTT 57.3 H 45.8 H D 77.9 H D Sodium 140 Potassium 3.0 L Chloride 106 Carbon Dioxide 25.0 Anion Gap 9 BUN 11 Creatinine 0.6 Estim Creat Clear Calc 97.8 eGFR > 60 BUN/Creatinine Ratio 18 Glucose 170 H Calculated Osmolality 282 Calcium 9.1 Corrected Calcium 9.1 Phosphorus 2.1 L Magnesium 1.7 Total Bilirubin 0.6 AST 118 H ALT 51 H Alkaline Phosphatase 84 Total Creatine Kinase 3033 H D Total Protein 6.2 Albumin 4.0 D Globulin 2.2 L Albumin/Globulin Ratio 1.8 Quality Measures Quality Measures VTE prophylaxis Advance care planning discussed with:: other Assessment & Plan Assessment Current Active Medications: Generic Name Dose Route Start Last Admin Trade Name Freq PRN Reason Stop Dose Admin Acetaminophen 650 mg 11/11/24 18:13 Acetaminophen Supp 650 Mg Supp [place] 12/11/24 18:12 Q6HR PRN PAIN OR FEVER > 101 Aspirin 81 mg 11/12/24 09:00 11/13/24 08:21 Aspirin 81 Mg Chew PO 12/12/24 08:59 81 mg QDAY ALAN Administration Atorvastatin Calcium 40 mg 11/11/24 21:00 11/12/24 20:43 Atorvastatin Calcium 20 Mg Tablet PO 12/11/24 20:59 Not Given HS ALAN Dextrose 25 ml 11/11/24 18:18 Dextrose 50%-Water Inj 50 Ml Syringe IV 12/11/24 18:17 Q15MIN PRN BG 50-70 responsive npo pt Dextrose 50 ml 11/11/24 18:18 Dextrose 50%-Water Inj 50 Ml Syringe IV 12/11/24 18:17 Q15MIN PRN BG <50 OR BG <70 & pt unresponsive Docusate Sodium 100 mg 11/12/24 21:00 11/13/24 08:20 Docusate Sod Liqd 100 Mg/10 Ml Udc PO 12/12/24 20:59 100 mg BID ALAN Administration Protocol Glucagon 1 mg 11/11/24 18:18 Glucagon Inj 1 Mg Vial IM Q15MIN PRN BG <70, and no IV access Heparin Sodium/Dextrose 25,000 unit in 250 mls @ 8.437 mls/hr 11/11/24 18:30 11/13/24 07:30 Heparin In D5w Ivpb IV 11/13/24 18:29 18 units/kg/hr .Q24H ALAN 12.655 mls/hr Titration Protocol 12 UNITS/KG/HR Potassium Phosphate 15 mmol in 250 mls @ 62.5 mls/hr 11/13/24 07:37 11/13/24 08:00 Pot Phos 15 Mmol In Ns 250 Ml IV 11/13/24 15:36 62.5 mls/hr Q4H ALAN Administration Sodium Chloride 1,000 mls @ 150 mls/hr 11/13/24 07:40 11/13/24 08:00 Ns IV 12/13/24 07:39 150 mls/hr .Q6H40M ALAN Administration Insulin Glargine 12 unit 11/14/24 09:00 Insulin Glargine (Lantus) 5 Unit/0.05 Ml (Per 5 Units) SC 12/14/24 08:59 QDAY ALAN Insulin Human Lispro 0 unit 11/13/24 11:30 Insulin Lispro (Admelog) 1 Unit/0.01 Ml Unit SC 12/13/24 11:29 AC ALAN Protocol Levothyroxine Sodium 50 mcg 11/12/24 07:45 11/13/24 05:32 Levothyroxine Sodium 25 Mcg Tablet PO 12/12/24 07:44 50 mcg ACBR ALAN Administration Losartan Potassium 50 mg 11/12/24 09:00 11/13/24 08:20 Losartan Potassium 25 Mg Tablet PO 12/12/24 08:59 50 mg BID ALAN Administration Magnesium Hydroxide 30 ml 11/12/24 15:18 Milk Of Magnesia Susp 30 Ml Udc PO 12/12/24 15:17 QDAY PRN CONSTIPATION Protocol Metoprolol Succinate 50 mg 11/13/24 09:00 11/13/24 08:21 Metoprolol Succinate Xl 25 Mg Tabcr PO 12/13/24 08:59 50 mg QDAY ALAN Administration Ondansetron HCl 4 mg 11/11/24 18:13 Ondansetron Inj 2 Mg/Ml Inj 2 Ml IV 12/11/24 18:12 Q6H PRN NAUSEA OR VOMITING Protocol Pantoprazole Sodium 40 mg 11/14/24 09:00 Pantoprazole 40 Mg Tablet PO 12/14/24 08:59 QDAY ALAN Potassium Chloride 40 meq 11/13/24 12:00 Potassium Chloride 10% 20 Meq/15 Ml Udc PO 11/13/24 12:01 X1 ONE Sennosides 8.8 mg 11/12/24 15:18 Sennosides Syrup 8.8 Mg/5 Ml Udc PO 12/12/24 15:17 QDAY PRN CONSTIPATION Protocol Plan MONE Jacobs is a 64-year-old female with a past medical history of type 2 diabetes mellitus, hypertension, COPD, peripheral arterial disease status post left hand amputation, anxiety, and bipolar disorder who is admitted for work-up of ACS. #Acute coronary syndrome workup #Elevated troponins EKG without signs of ST changes. 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 Troponins peaked at 6. -Echocardiogram showed Normal LV size and function. normal wall motion Estimated EF 55% Normal RV size and function Mild MAC with trace MR Mild TR -Cardiology consulted, appreciate recommendations -Continue heparin drip -N.p.o. after midnight on Friday for cardiac angiogram on Friday per cardiology recommendation -Aspirin, statin -Metoprolol succinate 50 mg p.o. daily -Losartan 50mg PO BID -cardiac monitoring #Rhabdomyolysis Patient found down on floor for unknown period of time. CK elevated at 5231. Does not report muscle pain or swelling, unreliable historian. Kidney function normal. -IVF: Normal saline at 150 cc/h -Creatinine kinase downtrending. -Will follow-up with morning creatinine kinase # Acute encephalopathy, resolved Patient started 2 new medications, including hydroxyzine and duloxetine day before first experiencing lethargy and AMS. Remains lethargic, follows commands can only answer simple commands. -Hold psych meds. -Patient is currently AOx3 #Constipation Patient reports several days since last bowel movement. -Senna, docusate, milk of magnesia PRN #Hypokalemia #Hypophosphatemia: K 3.3 on admission, repleted with 80 meqs KCL -Neutrophos pack given x1 -Monitor labs #Type 2 diabetes mellitus Patient history DM. A1c 7.2% as of 11/12/24. -SSI -Lantus increased to 12 units once daily -Insulin sliding scale AC -Hypoglycemia protocol in place with Accu-Cheks #Bipolar disorder #Anxiety Med rec done but will hold off on antipsychotic medications as may be contributing patient presentation -Resume as deemed appropriate DVT prophylaxis: Heparin drip GI prophylaxis: Protonix Diet: Cardiac, dysphagia level 1, carb consistent, n.p.o. after midnight on Friday and cardiac angiogram on Friday Lines: Peripheral IV Code status: Full Code Plan of care discussed with attending Dr. Gardner. Dr. Kendy MD, PGY 2 Attending Provider Attestation/Addendum I attest that I was physically present for the evaluation, physical examination, lab and imaging review of the patient with the residents. I discussed the case with the residents and agree with the findings and plans of care as documented above. Patient's mentation has improved dramatically overnight. She is alert and oriented x4 and was able to answer questions appropriately. Denies any chest pain, SOB, cough or palpitations. Continues to be on heparin drip, aspirin, statin, beta jose manuel and ARB. Patient is planned for coronary angio with cardiology. Continues to be on IV hydration, CK levels improving. Continues to be on Inslin regimen, we will adjust as needed. We will start diet and encourage PO intake. Dylan Gardner MD
--- NOTE | 2024-11-13 10:33 | ESPR_ITS ---
<Statement entered by Sushila Murphy MD - 11/13/24 14:57> I personally evaluated the patient spent more than 30 minutes with the patient discussing about treatment plan recommendation patient clearly has had altered mental status for 3 days and today she is quite alert oriented x 3 gave detail history patient apparently was given multiple medications by primary care physician antidepressants hydroxyzine made her severely confused and now she is much better she also was following her rhabdomyolysis. She clearly had episodes of recurrent chest tightness pain leading up to admission troponin significant elevated signs of acute NSTEMI myocardial infarction recommend continue aspirin and heparin will proceed with angiogram on Friday morning. I evaluated the patient along with resident physician Dr. Jordan Knight MD, PGY 2 agree with the treatment plan recommendation as documented Documentation for date of: 11/13/24 Subjective Subjective Interval history: Patient seen and assessed at bedside this morning. Patient reports feeling much better now. Patient denying any chest pain at this time even on palpation. Patient states she last took Eliquis around Friday or Friday prior to admission. Patient agrees for Hand Mounter which likely will happen Friday should she remain stable. Exam Vital Signs Temp Pulse Resp BP Pulse Ox O2 Del Method O2 Flow Rate 97.2 F 79 18 155/76 H 96 Room Air 5 11/13/24 08:00 11/13/24 08:21 11/13/24 08:00 11/13/24 08:21 11/13/24 08:00 11/13/24 08:00 11/12/24 12:00 Narrative Exam General: in no acute distress, AO x 3. Responds to questions appropriately. Cardiovascular: regular rate and rhythm, S1/S2 present, no murmurs appreciated Pulmonary: clear to auscultation bilaterally, no rales/rhonchi/wheezes Abdominal: soft, non-tender, non-distended, no rebound/guarding, normal bowel sounds present Musculoskeletal: left hand amputation, no edema noted lower extremities. Skin: warm and dry, intact, no rashes Objective Labs 11/13/24 05:19 11/13/24 05:19 Labs: Laboratory Results - last 24 hr 11/12/24 11/12/24 11/13/24 13:23 22:03 05:19 WBC 10.9 RBC 4.37 Hgb 13.1 Hct 39.0 MCV 89 MCH 30.0 MCHC 33.6 RDW Std Deviation 49.5 H Plt Count 218 Neut % (Auto) 67 Lymph % (Auto) 23 [place] % (Auto) 10 Eos % (Auto) 1 Baso % (Auto) 0 Neut # (Auto) 7.3 Lymph # (Auto) 2.5 [place] # (Auto) 1.1 H Eos # (Auto) 0.1 Baso # (Auto) 0.0 Immature Gran # (Auto) 0.05 H Absolute Nucleated RBC 0.00 Immature Gran % 1 H Nucleated RBC % 0 APTT 57.3 H 45.8 H D 77.9 H D Sodium 140 Potassium 3.0 L Chloride 106 Carbon Dioxide 25.0 Anion Gap 9 BUN 11 Creatinine 0.6 Estim Creat Clear Calc 97.8 eGFR > 60 BUN/Creatinine Ratio 18 Glucose 170 H Calculated Osmolality 282 Calcium 9.1 Corrected Calcium 9.1 Phosphorus 2.1 L Magnesium 1.7 Total Bilirubin 0.6 AST 118 H ALT 51 H Alkaline Phosphatase 84 Total Creatine Kinase 3033 H D Total Protein 6.2 Albumin 4.0 D Globulin 2.2 L Albumin/Globulin Ratio 1.8 Quality Measures Quality Measures VTE prophylaxis Advance care planning discussed with:: patient Assessment & Plan Assessment Current Active Medications: Generic Name Dose Route Start Last Admin Trade Name Freq PRN Reason Stop Dose Admin Acetaminophen 650 mg 11/11/24 18:13 Acetaminophen Supp 650 Mg Supp ID 12/11/24 18:12 Q6HR PRN PAIN OR FEVER > 101 Aspirin 81 mg 11/12/24 09:00 11/13/24 08:21 Aspirin 81 Mg Chew PO 12/12/24 08:59 81 mg QDAY ALAN Administration Atorvastatin Calcium 40 mg 11/11/24 21:00 11/12/24 20:43 Atorvastatin Calcium 20 Mg Tablet PO 12/11/24 20:59 Not Given HS ALAN Dextrose 25 ml 11/11/24 18:18 Dextrose 50%-Water Inj 50 Ml Syringe IV 12/11/24 18:17 Q15MIN PRN BG 50-70 responsive npo pt Dextrose 50 ml 11/11/24 18:18 Dextrose 50%-Water Inj 50 Ml Syringe IV 12/11/24 18:17 Q15MIN PRN BG <50 OR BG <70 & pt unresponsive Docusate Sodium 100 mg 11/12/24 21:00 11/13/24 08:20 Docusate Sod Liqd 100 Mg/10 Ml Udc PO 12/12/24 20:59 100 mg BID ALAN Administration Protocol Glucagon 1 mg 11/11/24 18:18 Glucagon Inj 1 Mg Vial IM Q15MIN PRN BG <70, and no IV access Heparin Sodium/Dextrose 25,000 unit in 250 mls @ 8.437 mls/hr 11/11/24 18:30 11/13/24 07:30 Heparin In D5w Ivpb IV 11/13/24 18:29 18 units/kg/hr .Q24H ALAN 12.655 mls/hr Titration Protocol 12 UNITS/KG/HR Potassium Phosphate 15 mmol in 250 mls @ 62.5 mls/hr 11/13/24 07:37 11/13/24 08:00 Pot Phos 15 Mmol In Ns 250 Ml IV 11/13/24 15:36 62.5 mls/hr Q4H ALAN Administration Sodium Chloride 1,000 mls @ 150 mls/hr 11/13/24 07:40 11/13/24 08:00 Ns IV 12/13/24 07:39 150 mls/hr .Q6H40M ALAN Administration Insulin Glargine 12 unit 11/14/24 09:00 Insulin Glargine (Lantus) 5 Unit/0.05 Ml (Per 5 Units) SC 12/14/24 08:59 QDAY ALAN Insulin Human Lispro 0 unit 11/13/24 11:30 Insulin Lispro (Admelog) 1 Unit/0.01 Ml Unit SC 12/13/24 11:29 AC ALAN Protocol Levothyroxine Sodium 50 mcg 11/12/24 07:45 11/13/24 05:32 Levothyroxine Sodium 25 Mcg Tablet PO 12/12/24 07:44 50 mcg ACBR ALAN Administration Losartan Potassium 50 mg 11/12/24 09:00 11/13/24 08:20 Losartan Potassium 25 Mg Tablet PO 12/12/24 08:59 50 mg BID ALAN Administration Magnesium Hydroxide 30 ml 11/12/24 15:18 Milk Of Magnesia Susp 30 Ml Udc PO 12/12/24 15:17 QDAY PRN CONSTIPATION Protocol Metoprolol Succinate 50 mg 11/13/24 09:00 11/13/24 08:21 Metoprolol Succinate Xl 25 Mg Tabcr PO 12/13/24 08:59 50 mg QDAY ALAN Administration Ondansetron HCl 4 mg 11/11/24 18:13 Ondansetron Inj 2 Mg/Ml Inj 2 Ml IV 12/11/24 18:12 Q6H PRN NAUSEA OR VOMITING Protocol Pantoprazole Sodium 40 mg 11/14/24 09:00 Pantoprazole 40 Mg Tablet PO 12/14/24 08:59 QDAY ALAN Potassium Chloride 40 meq 11/13/24 12:00 Potassium Chloride 10% 20 Meq/15 Ml Udc PO 11/13/24 12:01 X1 ONE Sennosides 8.8 mg 11/12/24 15:18 Sennosides Syrup 8.8 Mg/5 Ml Udc PO 12/12/24 15:17 QDAY PRN CONSTIPATION Protocol Plan MONE Jacobs is a 64-year-old female with a past medical history of type 2 diabetes mellitus, hypertension, COPD, peripheral arterial disease status post left hand amputation, anxiety, and bipolar disorder who is admitted. Cardiology consulted for ACS workup. # NSTEMI type 1 versus type II # Troponinanemia ?EKG without signs of ST changes ?Troponin peaked at 6.1 ?Continue heparin drip ? Continue aspirin, statin ?Continue metoprolol 50 mg p.o. ?Cardiac echo shows normal LV function and EF 55% ?Patient continues to complain of chest pain might benefit from Hand Mounter once more CK clears to decrease chance of PAMELA from contrast. Plan for Hand Mounter on Friday. #Altered mental status #Rhabdomyolysis vs neuroleptic malignant syndrome #Hypokalemia #Type 2 diabetes mellitus #Bipolar disorder #Anxiety To be managed by primary team Case discussed with hospice clinical manager Dr. Jeffrey Knight MD PGY3
[2024-11-13] MEDS: INSULIN LISPRO (AdmeLOG) 1 UNIT/0.01 ML UNIT SC ×2 (11:34→16:46)
[2024-11-13] MEDS: Heparin/D5w 25K 250 ML Ivpb 25,000 UNIT/250 ML BAG 12.655 UNIT IV (16:47)
[2024-11-13] MEDS: Milk Of Magnesia Susp 30 ML UDC PO (20:56)
[2024-11-13] MEDS: ATORVASTATIN CALCIUM 20 MG TABLET 40 MG PO (20:56)
--- NOTE | 2024-11-13 22:52 | PC.NURSE ---
[facility] CALLED. PT WITH C/O OF STERNAL CHEST PAIN, DULL IN NATURE, 8/10, AND ANXIOUS. SR ON MONITOR. BP AT 169/78. HOSPITALIST TEAM AT BEDSIDE. ORDERS FOR NITROGLYCERIN 0.4 MG SL X1, MORPHINE 1 MG IV X1, EKG, RT TX X1, TROP X1 ORDERED. POST NITRO AND MORPHINE, PT WITH CHEST PAIN 0/10 BUT HAS RESIDUAL HEADACHE 9/10. STATES SHE TYPICALLY GETS HARPER AFTER NTG ADMINISTRATION. NO REQUEST FOR PAIN MEDICATION FOR HEADACHE AT THIS TIME.
--- NOTE | 2024-11-13 22:53 | EKG_ITS ---
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
--- NOTE | 2024-11-13 22:56 | PC.RT ---
Responded to Rapid Response, RT Leta and RT Rajinder at bedside EKG done by RT Calvillo and leta, pt on RA 98% no distress noted
[2024-11-13] MEDS: NITROGLYCERIN 0.4 MG SUBL BTL #25 SL (22:59)
[2024-11-13] MEDS: MORPHINE SULF INJ 10 MG/ML VIAL IVP (23:05)
[2024-11-13] MEDS: ALBUTEROL/IPRATROPIUM (Duoneb) RT SOL 3 ML NEBU INH (23:10)
--- NOTE | 2024-11-13 23:20 | EVENTNT_ITS ---
Documentation for date of: 11/13/24 Event Note Event Note: Rapid Response Room: [facility] Time: 22:50 Reason for Call: chest pain Patient presentation: Patient in mild distress, complaining of pressure-like substernal chest pain, states that it was triggered as she was getting upset as she was asking for staff to help her. States she is scared. Per care team patient had not complained of this pain earlier today. Patient is on heparin drip since 11/11 evening and scheduled for a cath on Friday, 11/15. Events: Patient found saturating 96% on room air, RR 20, HR 70s, BP 169/78. Patient with clear normal breath sounds, heart sounds normal S1, S2 no murmurs. EKG obtained bedside which showed rate of 70, normal sinus rhythm. Compared with EKG 11/11, no significant changes. Assessment: Typical chest pain. Possible ACS, NSTEMI. Troponin trend since a dmission was 6.154->5.850->6.018->5.111 New orders: Repeat troponin, EKG (completed), sublingual nitroglycerin 0.4 mg x1, morphine 1 mg IV x1. Will follow troponin. Patient was discussed with the attending, Dr. Martino, and team residents, Jr Aponte PGY-1, Mike Luna PGY-1, and Ron Kern PGY-3. Chloé Bravo, PGY-2
[2024-11-13 23:54] LABS: Troponin I 1.214 ng/mL (0.0-0.045)
[2024-11-14] VITALS (11 sets, daily range): BP systolic 118–188; BP diastolic 71–116; PULSE 56–75; RESP 16–31; TEMP 35.9–36.5; O2SAT 94–99; BMI 34.0
[2024-11-14] MEDS: SODIUM CHLORIDE 0.9% 1000 ML 1,000 ML 150 ML IV ×4 (00:12→20:30)
[2024-11-14] MEDS: MELATONIN 3 MG TABLET PO (00:45)
[2024-11-14] MEDS: LEVOTHYROXINE SODIUM 25 MCG TABLET 50 MCG PO (05:10)
[2024-11-14 06:35] LABS: Basophils # (Auto) 0.1 Thou/mm3 (0.0-0.2); Basophils % (Auto) 1 % (0-2.5); Eosinophils # (Auto) 0.3 Thou/mm3 (0.0-0.5); Eosinophils % (Auto) 3 % (0-10); Hematocrit 33.9 % (36.0-46.0); Hemoglobin 11.2 g/dL (12.0-16.0); Immature Granulocytes % (Auto) 0 % (0-0); Immature Granulocytes Auto 0.04 Thou/mm3 (0.00-0.00); Lymphocytes # (Auto) 2.5 Thou/mm3 (1.0-4.8); Lymphocytes % (Auto) 25 % (10-50); Mean Corpuscular Hemoglobin 30.1 pg (25.0-35.0); Mean Corpuscular Volume 91 fL (80-100); Monocytes # (Auto) 1.2 Thou/mm3 (0.0-0.8); Monocytes % (Auto) 12 % (0-12); Neutrophils % (Auto) 60 % (37-80); Nucleated Red Blood Cell % 0 /100 WBC (0); Platelet Count 168 Thou/mm3 (140-440); Red Blood Count 3.72 Miln/mm3 (4.00-5.20); White Blood Count 10.1 Thou/mm3 (3.6-11.0)
[2024-11-14 07:05] LABS: Alanine Aminotransferase 42 U/L (10-49); Albumin, Serum 3.7 gm/dL (3.4-4.8); Albumin/Globulin Ratio 1.9 (1.2-2.2); Alkaline Phosphatase 74 U/L (46-116); Anion Gap 7 (7-16); Aspartate Amino Transferase 76 U/L (0-34); BUN/Creatinine Ratio 10 Ratio (12-20); Bilirubin,Total 0.5 mg/dL (0.3-1.2); Blood Urea Nitrogen 6 mg/dL (9-23); Calcium 8.7 mg/dL (8.3-10.6); Calcium (Corrected) 8.9 mg/dL (8.5-10.1); Carbon Dioxide 22.9 mMol/L (20.0-31.0); Chloride 107 mMol/L (98-107); Creatinine (Component) 0.6 mg/dL (0.6-1.3); Estimated Creatinine Clearance 97.8 mL/min (>60); Globulin 1.9 gm/dL (2.3-3.5); Glucose 162 mg/dL (74-106); Magnesium 1.8 mg/dL (1.6-2.6); Osmolality,Calculated 275 (275-295); Partial Thromboplastin Time 67.8 Seconds (22.0-36.0); Phosphorous 2.6 mg/dL (2.4-5.1); Potassium 4.1 mMol/L (3.4-5.1); Sodium 137 mMol/L (136-145); Total Protein 5.6 gm/dL (5.7-8.2); eGFR > 60 See Note
[2024-11-14 07:14] LABS: Creatine Kinase 1523 U/L (34-171)
--- NOTE | 2024-11-14 07:21 | PC.CC ---
Late Entry 11/13/24: Rounding note: Pt will stay inpatient continue heparin drip.
[2024-11-14] MEDS: Magnesium Sulfate 2 GM Ivpb 2 GM/50 ML BAG IV (08:23)
[2024-11-14] MEDS: METOPROLOL SUCCINATE XL 25 MG TABCR 50 MG PO (10:48)
[2024-11-14] MEDS: ASPIRIN 81 MG CHEW PO (10:48)
[2024-11-14] MEDS: PANTOPRAZOLE 40 MG TABLET PO (10:50)
[2024-11-14] MEDS: LOSARTAN POTASSIUM 25 MG TABLET 50 MG PO ×2 (10:51→20:32)
[2024-11-14] MEDS: DOCUSATE SOD LIQD 100 MG/10 ML UDC PO ×2 (10:52→20:31)
[2024-11-14] MEDS: amLODIPine BESYLATE 5 MG TABLET PO (11:44)
[2024-11-14] MEDS: INSULIN LISPRO (AdmeLOG) 1 UNIT/0.01 ML UNIT SC ×2 (11:46→16:47)
--- NOTE | 2024-11-14 13:10 | ESPR_ITS ---
RE: HEIDY MONE : 1960 DATE OF SERVICE: 11/14/2024 SUBJECTIVE: The patient is a 64-year-old lady admitted to the hospital initially with confusion, acute myocardial infarction, troponin levels were significantly elevated, continued to be elevated, and she is having some chest pain as well. The patient is much more alert and oriented x3. She does not complain of any orthopnea or PND. She just has mild shortness of breath today, also has some chest pressure, but no pain. OBJECTIVE: Vital Signs: Stable. Blood pressure is 170/100, pulse rate 72, respirations 16, temperature normal. Neck: Supple. No JVD. Lungs: Decreased breath sounds. No rales or rhonchi. Heart: S1 and S2 regular. No gallops. Abdomen: Thin and soft. Extremities: No edema. Left upper extremity showed amputation. ASSESSMENT: 1. myocardial infarction. 2. Severe hypertension. 3. Diabetes mellitus. RECOMMENDATIONS: Continue medical management. The patient is already on metoprolol 50 mg once a day and also on losartan 50 mg twice daily. Add amlodipine 5 mg daily for hypertension. We will schedule her for coronary angiogram and cardiac catheterization tentatively tomorrow for assessment of underlying coronary artery disease. DT: 11:16:13 TT: 13:08:00 Ref: [id number] - TID: [id number]
[2024-11-14] MEDS: Heparin/D5w 25K 250 ML Ivpb 25,000 UNIT/250 ML BAG 12.655 UNIT IV (13:19)
[2024-11-14] MEDS: hydrOXYzine HCL 25 MG TABLET PO (13:29)
--- NOTE | 2024-11-14 13:51 | ESPR_ITS ---
Documentation for date of: 11/14/24 Subjective Subjective Interval history: Overnight: Response called due to chest pain. EKG unremarkable, troponin 0.21 down from previous. Patient received nitro and morphine with relief. Patient seen and examined at bedside. Patient resting comfortably, denies chest pain or shortness of breath. Patient A&Ox2, appropriate responses to questions. Complains of mild anxiety. Restart home buspirone. Continue patient on IV fluids. Plan for angiogram tomorrow morning. Exam Vital Signs Temp Pulse Resp BP Pulse Ox O2 Del Method O2 Flow Rate 97.4 F 66 27 H 173/114 H 95 Room Air 5 11/14/24 12:00 11/14/24 12:00 11/14/24 12:00 11/14/24 12:00 11/14/24 12:00 11/14/24 12:00 11/12/24 12:00 Narrative Exam PE: Gen: Well-developed and well-nourished. HEENT: NCAT, PERRLA, EOMI, MMM, anicteric conjunctivae. CVS: normal S1 and S2. RRR. No M/R/G. Resp: CTA B/L. No rhonchi, rales, crackles or wheezing. Abd: soft, non-tender, non-distended. MSK: Good ROM in BUE & BLE. No edema or rash. Left hand amputation. Neuro: CN II-XII grossly intact. Strength 5/5 in BUE & BLE. A&Ox2, follows commands, responds appropriately to conversation/questions. Objective Labs 11/14/24 05:09 11/14/24 05:09 Labs: Laboratory Results - last 24 hr 11/13/24 11/14/24 23:00 05:09 WBC 10.1 RBC 3.72 L Hgb 11.2 L Hct 33.9 L MCV 91 MCH 30.1 MCHC 33.0 RDW Std Deviation 51.0 H Plt Count 168 D Neut % (Auto) 60 Lymph % (Auto) 25 [place] % (Auto) 12 Eos % (Auto) 3 Baso % (Auto) 1 Neut # (Auto) 6.0 Lymph # (Auto) 2.5 [place] # (Auto) 1.2 H Eos # (Auto) 0.3 Baso # (Auto) 0.1 Immature Gran # (Auto) 0.04 H Absolute Nucleated RBC 0.00 Immature Gran % 0 Nucleated RBC % 0 APTT 67.8 H D Sodium 137 Potassium 4.1 D Chloride 107 Carbon Dioxide 22.9 Anion Gap 7 BUN 6 L Creatinine 0.6 Estim Creat Clear Calc 97.8 eGFR > 60 BUN/Creatinine Ratio 10 L Glucose 162 H Calculated Osmolality 275 Calcium 8.7 Corrected Calcium 8.9 Phosphorus 2.6 Magnesium 1.8 Total Bilirubin 0.5 AST 76 H ALT 42 Alkaline Phosphatase 74 Total Creatine Kinase 1523 H D Troponin I 1.214 H* D Total Protein 5.6 L Albumin 3.7 Globulin 1.9 L Albumin/Globulin Ratio 1.9 Quality Measures Quality Measures VTE prophylaxis Advance care planning discussed with:: patient Assessment & Plan Assessment Current Active Medications: Generic Name Dose Route Start Last Admin Trade Name Freq PRN Reason Stop Dose Admin Acetaminophen 650 mg 11/11/24 18:13 Acetaminophen Supp 650 Mg Supp CA 12/11/24 18:12 Q6HR PRN PAIN OR FEVER > 101 Amlodipine Besylate 5 mg 11/14/24 11:30 11/14/24 11:44 Amlodipine Besylate 5 Mg Tablet PO 12/14/24 11:29 5 mg QDAY ALAN Administration Aspirin 81 mg 11/12/24 09:00 11/14/24 10:48 Aspirin 81 Mg Chew PO 12/12/24 08:59 81 mg QDAY ALAN Administration Atorvastatin Calcium 40 mg 11/11/24 21:00 11/13/24 20:56 Atorvastatin Calcium 20 Mg Tablet PO 12/11/24 20:59 40 mg HS ALAN Administration Buspirone HCl 30 mg 11/14/24 21:00 Buspirone Hcl 5 Mg Tablet PO 12/14/24 20:59 BID ALAN Dextrose 25 ml 11/11/24 18:18 Dextrose 50%-Water Inj 50 Ml Syringe IV 12/11/24 18:17 Q15MIN PRN BG 50-70 responsive npo pt Dextrose 50 ml 11/11/24 18:18 Dextrose 50%-Water Inj 50 Ml Syringe IV 12/11/24 18:17 Q15MIN PRN BG <50 OR BG <70 & pt unresponsive Docusate Sodium 100 mg 11/12/24 21:00 11/14/24 10:52 Docusate Sod Liqd 100 Mg/10 Ml Udc PO 12/12/24 20:59 100 mg BID ALAN Administration Protocol Glucagon 1 mg 01/02/25 18:18 Glucagon Inj 1 Mg Vial IM Q15MIN PRN BG <70, and no IV access Heparin Sodium/Dextrose 25,000 unit in 250 mls @ 8.437 mls/hr 11/11/24 18:30 11/14/24 13:19 Heparin In D5w Ivpb IV 11/15/24 18:29 18 units/kg/hr .Q24H ALAN 12.655 mls/hr Administration Protocol 12 UNITS/KG/HR Sodium Chloride 1,000 mls @ 150 mls/hr 11/13/24 07:40 11/14/24 13:19 Ns IV 12/13/24 07:39 150 mls/hr .[id number] ALAN Administration Insulin Glargine 12 unit 11/14/24 09:00 11/14/24 09:26 Insulin Glargine (Lantus) 5 Unit/0.05 Ml (Per 5 Units) SC 12/14/24 08:59 Not Given QDAY ALAN Insulin Human Lispro 0 unit 11/13/24 11:30 11/14/24 11:46 Insulin Lispro (Admelog) 1 Unit/0.01 Ml Unit SC 12/13/24 11:29 4 unit AC ALAN Administration Protocol Levothyroxine Sodium 50 mcg 11/12/24 07:45 11/14/24 05:10 Levothyroxine Sodium 25 Mcg Tablet PO 12/12/24 07:44 50 mcg ACBR ALAN Administration Losartan Potassium 50 mg 11/12/24 09:00 11/14/24 10:51 Losartan Potassium 25 Mg Tablet PO 12/12/24 08:59 50 mg BID ALAN Administration Magnesium Hydroxide 30 ml 11/12/24 15:18 11/13/24 20:56 Milk Of Magnesia Susp 30 Ml Udc PO 12/12/24 15:17 30 ml QDAY PRN Administration CONSTIPATION Protocol Metoprolol Succinate 50 mg 11/13/24 09:00 11/14/24 10:48 Metoprolol Succinate Xl 25 Mg Tabcr PO 12/13/24 08:59 50 mg QDAY ALAN Administration Ondansetron HCl 4 mg 11/11/24 18:13 Ondansetron Inj 2 Mg/Ml Inj 2 Ml IV 12/11/24 18:12 Q6H PRN NAUSEA OR VOMITING Protocol Pantoprazole Sodium 40 mg 11/14/24 09:00 11/14/24 10:50 Pantoprazole 40 Mg Tablet PO 12/14/24 08:59 40 mg QDAY ALAN Administration Sennosides 8.8 mg 11/12/24 15:18 Sennosides Syrup 8.8 Mg/5 Ml Udc PO 12/12/24 15:17 QDAY PRN CONSTIPATION Protocol Plan MONE Jacobs is a 64-year-old female with a past medical history of type 2 diabetes mellitus, hypertension, COPD, peripheral arterial disease status post left hand amputation, anxiety, and bipolar disorder who is admitted for work-up of ACS. #Acute coronary syndrome workup #Elevated troponins EKG without signs of ST changes. Cardiology deferring brine room laborer pending echo. Troponins peaked at 6. -Echocardiogram showed Normal LV size and function. normal wall motion Estimated EF 55% Normal RV size and function Mild MAC with trace MR Mild TR -Cardiology consulted, appreciate recommendations -Continue heparin drip -N.p.o. after midnight on Friday for cardiac angiogram on Friday per cardiology recommendation -Aspirin, statin -Metoprolol succinate 50 mg p.o. daily -Losartan 50mg PO BID -cardiac monitoring #Rhabdomyolysis Patient found down on floor for unknown period of time. CK elevated at 5231. Does not report muscle pain or swelling, unreliable historian. Kidney function normal. -IVF: Normal saline at 150 cc/h -Creatinine kinase downtrending. # Acute encephalopathy, resolving Patient started 2 new medications, including hydroxyzine and duloxetine day before first experiencing lethargy and AMS. Remains lethargic, follows commands can only answer simple commands. Patient mentation improving, more appropriately responsive to questions. A&O x 2. -Hold psych meds. #Constipation, resolved Patient reports several days since last bowel movement. Began having BM with bowel regimen -Senna, docusate, milk of magnesia PRN #Hypokalemia #Hypophosphatemia: K 3.3 on admission, repleted with 80 meqs KCL -Neutrophos pack given x1 -Monitor labs #Type 2 diabetes mellitus Patient history DM. A1c 7.2% as of 11/12/24. -SSI -Lantus increased to 12 units once daily -Insulin sliding scale AC -Hypoglycemia protocol in place with Accu-Cheks #Bipolar disorder #Anxiety Med rec done but will hold off on antipsychotic medications as may be contributing patient presentation -Resume as deemed appropriate -Will resume home buspirone 20 mg p.o. twice daily DVT prophylaxis: Heparin drip GI prophylaxis: Protonix Diet: Cardiac, dysphagia level 1, carb consistent, n.p.o. after midnight on Friday and cardiac angiogram on Friday Lines: Peripheral IV Code status: Full Code Plan of care discussed with senior resident Dr. Lazar PGY-[address] Gardner. Ugo South MD PGY-1 Senior Resident Attestation: I discussed with and supervised the event marketing intern physician involved in the care of this patient. I personally saw and examined the patient and discussed the assessment and plan with the entire medicine team, including my attending. I agree with the assessment and plan as documented above. Patient seen and examined overnight. Patient's AOx3. Patient is feeling anxious about tomorrow's procedure. For ACS we will continue heparin drip, aspirin and statin therapy, metoprolol and losartan. Rhabdomyolysis we will continue aggressive IV fluid. For patient's anxiety we will resume patient's home BuSpar. Pending [facility] tomorrow. - Patient's care was discussed with my attending physician. Hair Lazar MD Internal Medicine PGY-3 Attending Provider Attestation/Addendum I attest that I was physically present for the evaluation, physical examination, lab and imaging review of the patient with the residents. I discussed the case with the residents and agree with the findings and plans of care as documented above. Overnight, patient had an episode of chest pain, underwent EKG and troponin both of which did not suggest acute VT. Patient received nitroglycerin and anxiolytic. At bedside, patient is stated she is feeling anxious and also feels like she is short of breath and had chest pain. Explained to her about last night's episode, EKG and troponin finding. We will add hydroxyzine x 1 and resume her home BuSpar. Continues to be on heparin drip, aspirin, statin, beta- jose manuel and ARB. We will also continue with IV hydration for rhabdomyolysis. Continues to be on insulin regimen for diabetes. Patient planned for coronary angiography tomorrow with cardiology, N.p.o. after midnight. Dylan Gardner MD
--- NOTE | 2024-11-14 15:05 | PC.CC ---
Rounding note: pt to remain pending angio.
[2024-11-14] MEDS: ATORVASTATIN CALCIUM 20 MG TABLET 40 MG PO (20:32)
[2024-11-14] MEDS: BusPIRone HCL 5 MG TABLET 30 MG PO (20:33)
[2024-11-14] MEDS: ALPRazoLAM 0.25 MG TABLET PO (22:52)
[2024-11-15] VITALS (18 sets, daily range): BP systolic 130–198; BP diastolic 54–90; PULSE 50–110; RESP 13–21; TEMP 36.1–36.9; O2SAT 95–99; BMI 35.9
[2024-11-15] MEDS: MELATONIN 3 MG TABLET PO (02:14)
[2024-11-15] MEDS: SODIUM CHLORIDE 0.9% 1000 ML 1,000 ML 150 ML IV (02:16)
[2024-11-15] MEDS: LEVOTHYROXINE SODIUM 25 MCG TABLET 50 MCG PO (05:41)
[2024-11-15 06:23] LABS: Alanine Aminotransferase 37 U/L (10-49); Albumin, Serum 3.4 gm/dL (3.4-4.8); Albumin/Globulin Ratio 1.5 (1.2-2.2); Alkaline Phosphatase 77 U/L (46-116); Anion Gap 9 (7-16); Aspartate Amino Transferase 40 U/L (0-34); BUN/Creatinine Ratio 8 Ratio (12-20); Bilirubin,Total 0.5 mg/dL (0.3-1.2); Blood Urea Nitrogen < 5 mg/dL (9-23); Calcium 8.8 mg/dL (8.3-10.6); Calcium (Corrected) 9.3 mg/dL (8.5-10.1); Carbon Dioxide 22.4 mMol/L (20.0-31.0); Chloride 108 mMol/L (98-107); Creatinine (Component) 0.6 mg/dL (0.6-1.3); Estimated Creatinine Clearance 100.7 mL/min (>60); Globulin 2.2 gm/dL (2.3-3.5); Glucose 139 mg/dL (74-106); Magnesium 1.6 mg/dL (1.6-2.6); Osmolality,Calculated 276 (275-295); Phosphorous 3.5 mg/dL (2.4-5.1); Potassium 3.4 mMol/L (3.4-5.1); Sodium 139 mMol/L (136-145); Total Protein 5.6 gm/dL (5.7-8.2); eGFR > 60 See Note
[2024-11-15 06:24] LABS: Partial Thromboplastin Time 58.4 Seconds (22.0-36.0)
[2024-11-15] MEDS: DOCUSATE SOD LIQD 100 MG/10 ML UDC PO (08:22)
[2024-11-15] MEDS: POTASSIUM CHLORIDE 20 mEq TABCR 40 MEQ PO (08:22)
[2024-11-15] MEDS: Magnesium Sulfate 4 GM Ivpb 4 GM/50 ML BAG IV (08:22)
[2024-11-15] MEDS: amLODIPine BESYLATE 5 MG TABLET PO (08:23)
[2024-11-15] MEDS: METOPROLOL SUCCINATE XL 25 MG TABCR 50 MG PO (08:23)
[2024-11-15] MEDS: PANTOPRAZOLE 40 MG TABLET PO (08:23)
[2024-11-15] MEDS: LOSARTAN POTASSIUM 25 MG TABLET 50 MG PO ×2 (08:23→20:41)
[2024-11-15] MEDS: ASPIRIN 81 MG CHEW PO (08:24)
--- NOTE | 2024-11-15 10:00 | PC.SS ---
Rounding: pending cardiac angio
[2024-11-15 10:27] LABS: Creatine Kinase 558 U/L (34-171)
[2024-11-15 10:45] LABS: Basophils # (Auto) 0.1 Thou/mm3 (0.0-0.2); Basophils % (Auto) 1 % (0-2.5); Eosinophils # (Auto) 0.3 Thou/mm3 (0.0-0.5); Eosinophils % (Auto) 3 % (0-10); Hematocrit 37.1 % (36.0-46.0); Hemoglobin 12.3 g/dL (12.0-16.0); Immature Granulocytes % (Auto) 1 % (0-0); Immature Granulocytes Auto 0.06 Thou/mm3 (0.00-0.00); Lymphocytes # (Auto) 2.5 Thou/mm3 (1.0-4.8); Lymphocytes % (Auto) 22 % (10-50); Mean Corpuscular HGB Conc 33.2 g/dl (31.0-37.0); Mean Corpuscular Hemoglobin 30.4 pg (25.0-35.0); Mean Corpuscular Volume 92 fL (80-100); Monocytes # (Auto) 1.1 Thou/mm3 (0.0-0.8); Monocytes % (Auto) 10 % (0-12); Neutrophils % (Auto) 63 % (37-80); Nucleated Red Blood Cell % 0 /100 WBC (0); Platelet Count 202 Thou/mm3 (140-440); RDW Standard Deviation 50.1 fL (36.4-46.3); Red Blood Count 4.05 Miln/mm3 (4.00-5.20); White Blood Count 11.1 Thou/mm3 (3.6-11.0)
[2024-11-15] MEDS: SODIUM CHLORIDE 0.9% 1000 ML 1,000 ML 80 ML IV (11:10)
--- NOTE | 2024-11-15 15:49 | ESPR_ITS ---
<Statement entered by Medhat Larry MD - 11/15/24 16:42> Patient was not seen in examined at the bedside she was taken to the Technical Support Analyst for cardiac angiogram. Cardiac angiogram report is not back yet. Morning vitals showed blood pressure slightly elevated. Hemoglobin was stable at 11.2. Chemistry panel showed mild hypokalemia and hypomagnesemia which was repleted. Kidney functions are stable. Dr. Murphy ordered aspirin and Brilinta post cardiac angiogram. Will likely follow-up on further recommendations and anticipate discharge in 24-48 hours. All labs and orders were reviewed. I saw and examined the patient, and I agree with current management stated by Dr Brannon MD,PGY1. Plan of care was discussed with the attending physician and resident physician. Disclaimer: Despite multiple revisions, due to the dictation software being used, the document bellow may not be free of grammatical errors including phonetic/typographic errors. However, this does not deter from our commitment to providing health care in the patient's best interest in mind. Dr. Kendy MD, PGY 2 Documentation for date of: 11/15/24 Subjective Subjective Interval history: Overnight: Patient complained of severe anxiety, resolved with xanax and melatonin. Patient unable to be seen, was in procedure. Chart reviewed. Patient receiving cardiac cath today, will follow up. Exam Vital Signs Temp Pulse Resp BP Pulse Ox O2 Del Method O2 Flow Rate 97.6 F 59 L 18 146/75 H 99 Room Air 1.5 11/15/24 12:59 11/15/24 15:30 11/15/24 15:30 11/15/24 15:30 11/15/24 15:30 11/15/24 15:30 11/15/24 13:45 Narrative Exam Unable to be performed due to being in a procedure. Objective Labs 11/15/24 10:19 11/15/24 05:30 Labs: Laboratory Results - last 24 hr 11/15/24 11/15/24 11/15/24 05:30 10:19 13:20 WBC 11.1 H RBC 4.05 Hgb 12.3 Hct 37.1 MCV 92 MCH 30.4 MCHC 33.2 RDW Std Deviation 50.1 H Plt Count 202 D Neut % (Auto) 63 Lymph % (Auto) 22 [place] % (Auto) 10 Eos % (Auto) 3 Baso % (Auto) 1 Neut # (Auto) 7.0 Lymph # (Auto) 2.5 [place] # (Auto) 1.1 H Eos # (Auto) 0.3 Baso # (Auto) 0.1 Immature Gran # (Auto) 0.06 H Absolute Nucleated RBC 0.00 Immature Gran % 1 H Nucleated RBC % 0 APTT 58.4 H Activated Clotting Time 249.0 H Sodium 139 Potassium 3.4 D Chloride 108 H Carbon Dioxide 22.4 Anion Gap 9 BUN < 5 L Creatinine 0.6 Estim Creat Clear Calc 100.7 eGFR > 60 BUN/Creatinine Ratio 8 L Glucose 139 H Calculated Osmolality 276 Calcium 8.8 Corrected Calcium 9.3 Phosphorus 3.5 Magnesium 1.6 Total Bilirubin 0.5 AST 40 H ALT 37 Alkaline Phosphatase 77 Total Creatine Kinase 558 H D Total Protein 5.6 L Albumin 3.4 Globulin 2.2 L Albumin/Globulin Ratio 1.5 Quality Measures Quality Measures VTE prophylaxis Advance care planning discussed with:: patient Assessment & Plan Assessment Current Active Medications: Generic Name Dose Route Start Last Admin Trade Name Freq PRN Reason Stop Dose Admin Acetaminophen 650 mg 11/11/24 18:13 Acetaminophen Supp 650 Mg Supp DE 12/11/24 18:12 Q6HR PRN PAIN OR FEVER > 101 Amlodipine Besylate 5 mg 11/14/24 11:30 11/15/24 08:23 Amlodipine Besylate 5 Mg Tablet PO 12/14/24 11:29 5 mg QDAY ALAN Administration Aspirin 81 mg 11/12/24 09:00 11/15/24 08:24 Aspirin 81 Mg Chew PO 12/12/24 08:59 81 mg QDAY ALAN Administration Atorvastatin Calcium 40 mg 11/11/24 21:00 11/14/24 20:32 Atorvastatin Calcium 20 Mg Tablet PO 12/11/24 20:59 40 mg HS ALAN Administration Buspirone HCl 30 mg 11/14/24 21:00 11/15/24 12:05 Buspirone Hcl 5 Mg Tablet PO 12/14/24 20:59 Not Given BID ALAN Dextrose 25 ml 11/11/24 18:18 Dextrose 50%-Water Inj 50 Ml Syringe IV 12/11/24 18:17 Q15MIN PRN BG 50-70 responsive npo pt Dextrose 50 ml 11/11/24 18:18 Dextrose 50%-Water Inj 50 Ml Syringe IV 12/11/24 18:17 Q15MIN PRN BG <50 OR BG <70 & pt unresponsive Docusate Sodium 100 mg 11/12/24 21:00 11/15/24 08:22 Docusate Sod Liqd 100 Mg/10 Ml Udc PO 12/12/24 20:59 100 mg BID ALAN Administration Protocol Glucagon 1 mg 11/11/24 18:18 Glucagon Inj 1 Mg Vial IM Q15MIN PRN BG <70, and no IV access Sodium Chloride 1,000 mls @ 80 mls/hr 11/15/24 08:02 11/15/24 11:10 Ns IV 12/15/24 08:01 80 mls/hr .[id number] ALAN Administration Insulin Glargine 12 unit 11/14/24 09:00 11/15/24 08:33 Insulin Glargine (Lantus) 5 Unit/0.05 Ml (Per 5 Units) SC 12/14/24 08:59 Not Given QDAY ALAN Insulin Human Lispro 0 unit 11/13/24 11:30 11/15/24 13:10 Insulin Lispro (Admelog) 1 Unit/0.01 Ml Unit SC 12/13/24 11:29 Not Given AC [facility] Protocol Levothyroxine Sodium 50 mcg 11/12/24 07:45 11/15/24 05:41 Levothyroxine Sodium 25 Mcg Tablet PO 12/12/24 07:44 50 mcg ACBR ALAN Administration Losartan Potassium 50 mg 11/12/24 09:00 11/15/24 08:23 Losartan Potassium 25 Mg Tablet PO 12/12/24 08:59 50 mg BID ALAN Administration Magnesium Hydroxide 30 ml 11/12/24 15:18 11/13/24 20:56 Milk Of Magnesia Susp 30 Ml Udc PO 12/12/24 15:17 30 ml QDAY PRN Administration CONSTIPATION Protocol Metoprolol Succinate 50 mg 11/13/24 09:00 11/15/24 08:23 Metoprolol Succinate Xl 25 Mg Tabcr PO 12/13/24 08:59 50 mg QDAY ALAN Administration Ondansetron HCl 4 mg 11/11/24 18:13 Ondansetron Inj 2 Mg/Ml Inj 2 Ml IV 12/11/24 18:12 Q6H PRN NAUSEA OR VOMITING Protocol Pantoprazole Sodium 40 mg 11/14/24 09:00 11/15/24 08:23 Pantoprazole 40 Mg Tablet PO 12/14/24 08:59 40 mg QDAY ALAN Administration Sennosides 8.8 mg 11/12/24 15:18 Sennosides Syrup 8.8 Mg/5 Ml Udc PO 12/12/24 15:17 QDAY PRN CONSTIPATION Protocol Ticagrelor 90 mg 11/15/24 21:00 Ticagrelor 90 Mg Tablet PO 12/15/24 20:59 BID ALAN Plan DD Rosi Jacobs is a 64-year-old female with a past medical history of type 2 diabetes mellitus, hypertension, COPD, peripheral arterial disease status post left hand amputation, anxiety, and bipolar disorder who is admitted for work-up of ACS. #Acute coronary syndrome workup #Elevated troponins EKG without signs of ST changes. Cardiology deferring helper animal laboratory pending echo. Troponins peaked at 6. -Echocardiogram showed Normal LV size and function. normal wall motion Estimated EF 55% Normal RV size and function Mild MAC with trace MR Mild TR -Cardiology consulted, appreciate recommendations -Continue heparin drip -Cardiac cath today -Aspirin, statin -Metoprolol succinate 50 mg p.o. daily -Losartan 50mg PO BID -cardiac monitoring #Rhabdomyolysis Patient found down on floor for unknown period of time. CK elevated at 5231. Does not report muscle pain or swelling, unreliable historian. Kidney function normal. -IVF: Normal saline at 150 cc/h -Creatinine kinase downtrending. # Acute encephalopathy, resolving Patient started 2 new medications, including hydroxyzine and duloxetine day before first experiencing lethargy and AMS. Remains lethargic, follows commands can only answer simple commands. Patient mentation improving, more appropriately responsive to questions. A&O x 2. -Hold psych meds. #Constipation, resolved Patient reports several days since last bowel movement. Began having BM with bowel regimen -Senna, docusate, milk of magnesia PRN #Hypokalemia #Hypophosphatemia: K 3.3 on admission, repleted with 80 meqs KCL -Neutrophos pack given x1 -Monitor labs #Type 2 diabetes mellitus Patient history DM. A1c 7.2% as of 11/12/24. -SSI -Lantus increased to 12 units once daily -Insulin sliding scale AC -Hypoglycemia protocol in place with Accu-Cheks #Bipolar disorder #Anxiety Med rec done but will hold off on antipsychotic medications as may be contributing patient presentation -Resume as deemed appropriate -Will resume home buspirone 20 mg p.o. twice daily DVT prophylaxis: Heparin drip GI prophylaxis: Protonix Diet: NPO Lines: Peripheral IV Code status: Full Code Plan of care discussed with senior resident Dr. Larry PGY-[address] Gardner. Ugo South MD PGY-1 Attending Provider Attestation/Addendum I attest that I was physically present for the evaluation, physical examination, lab and imaging review of the patient with the residents. I discussed the case with the residents and agree with the findings and plans of care as documented above. Patient undergoing coronary angiography with cardiology today. Will continue with gentle IV hydration for rhabdomyolysis. Dylan Gardner MD
[2024-11-15] MEDS: INSULIN LISPRO (AdmeLOG) 1 UNIT/0.01 ML UNIT SC (16:45)
--- NOTE | 2024-11-15 20:00 | PC.NURSE ---
Patient insists on leaving [facility]. Called Dr. Bravo who came to the patients bedside. Dr. Bravo spoke with the patient regarding the importance of being monitored overnight as the patient had an angiogram today with 2 stents placed. Patient lives alone. Unable to contact son and caregiver. Patient is not safe to leave per Dr. Bravo. After speaking with Dr. Bravo the patient agree to stay for the night.
[2024-11-15] MEDS: ATORVASTATIN CALCIUM 20 MG TABLET 40 MG PO (20:41)
[2024-11-15] MEDS: BusPIRone HCL 5 MG TABLET 30 MG PO (20:42)
[2024-11-15] MEDS: TICAGRELOR 90 MG TABLET PO (20:48)
--- NOTE | 2024-11-15 21:00 | PC.NURSE ---
The patient refused to keep the nuclear monitoring technician on. Obtained and order from that it's okay to keep the nuclear monitoring technician off. Kimberly caregiver called and informed that the patient will be discharged in the morning. The patient is aware that Kimberly is unable to pick the patient up untill 10 am today. Patient is okay with this plan.
[2024-11-16] VITALS: BP 151/77; PULSE 61; RESP 20; TEMP 36.2; O2SAT 97
[2024-11-16 03:51] VITALS: BP 162/82; PULSE 89; RESP 20; TEMP 36.5; O2SAT 97
[2024-11-16] MEDS: LEVOTHYROXINE SODIUM 25 MCG TABLET 50 MCG PO (05:36)
[2024-11-16 05:52] LABS: Alanine Aminotransferase 36 U/L (10-49); Albumin, Serum 3.8 gm/dL (3.4-4.8); Albumin/Globulin Ratio 1.8 (1.2-2.2); Alkaline Phosphatase 85 U/L (46-116); Anion Gap 9 (7-16); Aspartate Amino Transferase 29 U/L (0-34); BUN/Creatinine Ratio 16 Ratio (12-20); Bilirubin,Total 0.4 mg/dL (0.3-1.2); Blood Urea Nitrogen 11 mg/dL (9-23); Calcium 9.1 mg/dL (8.3-10.6); Calcium (Corrected) 9.3 mg/dL (8.5-10.1); Carbon Dioxide 25.5 mMol/L (20.0-31.0); Chloride 104 mMol/L (98-107); Creatinine (Component) 0.7 mg/dL (0.6-1.3); Estimated Creatinine Clearance 84.6 mL/min (>60); Globulin 2.1 gm/dL (2.3-3.5); Glucose 195 mg/dL (74-106); Magnesium 1.7 mg/dL (1.6-2.6); Osmolality,Calculated 280 (275-295); Phosphorous 3.8 mg/dL (2.4-5.1); Potassium 3.8 mMol/L (3.4-5.1); Sodium 138 mMol/L (136-145); Total Protein 5.9 gm/dL (5.7-8.2); eGFR > 60 See Note
[2024-11-16 06:00] VITALS: BMI 35.9
--- NOTE | 2024-11-16 07:14 | PC.NURSE ---
During change of shift at approximately 06:48 patient stated that she would be leaving. Patient stated that she needed a cigarette. Dr Bravo was called and stated she would be visiting the patient. Patient stated they would not wait for the Dr. patient began getting dressed to leave. Charge nurse Yudi was consulted. I then explained possible consequences and had the patient sign AMA forms. Information papers regarding stent procedure were given to patient. Patient signed belongings sheet. Patient Iv's were removed and patient and proceeded to leave the building at approximately 07:05.
--- NOTE | 2024-11-16 10:09 | ESOP_ITS ---
RE: MONE MOODY : 1960 DATE OF OPERATION: 11/15/2024 PROCEDURE PERFORMED: 1. Diagnostic left heart cardiac catheterization, selective coronary angiogram, left ventricular angiogram, CPT 31321. 2. PCI, PTCA stent placement of the proximal right coronary artery, placement of drug-eluting stent 3.0 x 28 mm Synergy stent with a diagnosis of acute myocardial infarction, CPT 16714. 3. PCI, PTCA stent placement of the mid and distal RCA with additional stent placement, a 2.75 x 12 mm Hickey Xience stent placement of the second lesion in the mid RCA. Preprocedure stenosis of proximal RCA 99% subtotal occlusion, postprocedure 0%. Preprocedure JUAN flow 2, postprocedure JUAN flow 3. The distal and mid RCA lesion preprocedure stenosis 80%, postprocedure 0%. JUAN flow preprocedure 2, postprocedure 3, CPT code 10037. 4. Ultrasound guided access of the right radial artery. 5. Conscious sedation, one hour duration. DIAGNOSIS: Acute non-ST elevation myocardial infarction, recurrent chest pain and shortness of breath. HISTORY AND INDICATIONS: The patient is a 64-year-old female with a past medical history of hypertension and hypercholesteremia, has recurrent episodes of substernal chest discomfort, came to the hospital with altered mental status initially, severe chest tightness preceding the hospitalization. The patient had mild ST-T changes initially, but resolved. Troponin significantly elevated. Hence, cardiac catheterization and coronary angiogram was recommended for assessment of acute myocardial infarction and possible PCI intervention with a diagnosis of acute myocardial infarction. DESCRIPTION OF PROCEDURE: The patient was brought to cardiac catheterization laboratory. She was given conscious sedation 2 mg Versed, 50 mcg of fentanyl, right renal approach was taken, right radial artery cannulated by micropuncture technique, and a 6-[place] glide sheath introduced. Selective right and left carotid angiogram. Diagnostic procedure was performed by a 5-[place] TIG-4 diagnostic catheter, left ventricular angiogram, left heart catheterization was performed. After diagnostic procedure intervention was taken, diagnostic procedure showed following findings 1. Right coronary artery large and dominant showed evidence of calcification, 99% subtotal occlusion of the proximal and mid right coronary artery, culprit lesion, additional lesion, 80% stenosis distal to that. PDA and PL branches are visualized. 2. Left coronary system: Left main coronary artery is normal. Left anterior descending artery showed evidence of mild atherosclerotic plaque in the mid segment with no significant stenosis. Diagonal branch also showed mild atherosclerotic plaque. No significant stenosis. 3. Circumflex artery gives off large obtuse marginal branch, appears normal. Left ventricular pressure is recorded to be normal 102/10, aortic pressure 110/70. No gradient across the aortic valve. 4. Left ventricular angiogram showed normal left ventricular wall motion, ejection fraction of 50%. Percutaneous intervention details are as follows: The patient tolerated radial cocktail with 3000 heparin. Additional 3000 units heparin given plus another 1000 for ACT therapeutic. Aspirin the patient is already receiving, Brilinta 180 mg loading dose was given. Proceeded with the PCI. Right coronary artery is cannulated by using FR4 guiding catheter and a 0.014 run-through guide was used to cross the lesion successfully. A 2.5 mm x 20 mm length balloon was used to dilate the lesion successfully and subsequently, a 3.0 x 28 mm drug-eluting stent Synergy by [employer] was deployed successfully in proximal RCA with a good result, but there is another lesion distal to where there is 80% stenosis. Hence, I proceeded with a PCI stent placement. Hickey Xience stent 2.75 x 12 mm stent was deployed in the mid and distal segments distally. Following the procedure, 3.5 mm noncompliant balloon, 3.5 x 12 mm balloon was used to dilate the proximal portions of the stent aggressively and distally, it tapers off into 2.75 to 3 mm vessel. Final angiogram showed widely patent right coronary artery with no residual stenosis. SUMMARY OF FINDINGS AND SUGGESTIONS: Single vessel coronary artery disease with acute myocardial infarction with RCA being culprit vessel, underwent successful WEIGHT GUESSER stent placed to the proximal right coronary artery using a drug-eluting stent and mid and distal segment stent placement performed by additional drug-eluting stent. No complications during the procedure. The patient will be continued on aspirin and Brilinta, possibly discharge home in the next 24 to 48 hours. TR band was applied. Hemostasis was secured. Estimated blood loss less than 5 mL. DT: 08:24:04 TT: 10:03:00 Ref: [id number] - TID: [id number]
--- NOTE | 2024-11-16 16:12 | PD.RESEVENT ---
Documentation for date of: 11/16/24 Event Note Event Note: During shift change, patient expressed desire to leave AMA to smoke and refused to wait. Night team physician was called, but patient left before MD arrived. Patient had IV lines removed and signed AMA forms before leaving. Patient left before day team was able to see her today. Ugo South MD PGY-1
--- NOTE | 2024-11-16 16:14 | ESDS_ITS ---
<Statement entered by Dylan Gardner MD - 11/17/24 18:17> I attest that I was physically present for the evaluation, physical examination, lab and imaging review of the patient with the residents. I discussed the case with the residents and agree with the findings and plans of care as documented above. Patient left AGAINST MEDICAL ADVICE this morning before we were able to see and examine her.? We will send her prescriptions for aspirin, Brilinta, levothyroxine, metoprolol and metformin.? We will discontinue her gabapentin, hydroxyzine and duloxetine which might have contributed to her acute encephalopathy on presentation. Dylan Gardner MD <Statement entered by Medhat Larry MD - 11/16/24 17:58> Patient was not seen and examined at the bedside this morning as patient left AMA. Overnight night team reported that patient was not cooperative and removed telemetry box and wanted to go home and this morning before we could see the patient she called her family member and left AMA. We sent prescription medications as patient received stents in RCA and was started on aspirin and Brilinta which need to be continued for at least 1 year to prevent re- stenosis. Some of the medications were discontinued on discharge which could be possibly attributing to patient's altered mentation. All labs and orders were reviewed I agree with current statement stated by Dr Brannon MD,PGY1. Plan of care was discussed with the attending physician and resident physician. Disclaimer: Despite multiple revisions, due to the dictation software being used, the document bellow may not be free of grammatical errors including phonetic/typographic errors. However, this does not deter from our commitment to providing health care in the patient's best interest in mind. Dr. Joy MD, PGY 2 Planned Discharge Date 11/16/24 DS: Providers Provider Date of admission: 11/11/24 18:11 Primary care physician: David Dietz Admitting Provider: Dylan Gardner MD Attending Provider on Admission: Dylan Gardner MD Consults: 11/11/24 18:18 Consult to Cardiology Routine Comment: Consulting Provider: Sushila Murphy 11/12/24 05:59 Referral Wound Care Routine Comment: Instructions: scattered abrasions,bruisings, pressure injury? 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 History obtained from chart review. She was found at home by her hot roller, Kimberly, who had not seen her since 11/09. Insurance Premium Auditor stated that when she had found her, patient was exhibiting odd behaviors. Of note, hot roller also stated that patient was recently prescribed new medications by PCP (hydroxyzine, duloxetine) and has noticed her to be sleepier than normal. Significant labs showed leukocytosis, troponin 6.15, BNP 700, CK > 1300, hypokalemia (3.3). Due to elevated troponin and BNP as well as elevated BP of 180/110, cardiology was consulted by ED, who recommended patient to be admitted for treatment of ACS. After talking to cardiology, patient agreed to be admitted. Patient was started on heparin drip, metoprolol, and losartan for NSTEMI. Patient also given careful IVF for rhabdomyolosis. Psych meds were held. During stay, patient showed slow improvement in mentation. Cardiac catheterization was performed, with stents place in RCA. The following day, patient expressed desire to leave AMA. Patient was unwilling to wait for night team physician to see her, and left before MD had a chance to speak with her. Patient signed AMA forms and had lines removed before leaving. Discharge plan: Please follow up with PCP in 1-2 weeks. Please make appointment to follow up with pricing clerk. You have been started on following meds: -Aspirin 81mg daily -Atorvastatin 40mg daily before bedtime -Brilinta 90mg twice daily -levothyroxine 50 mcg on an empty stomach -metoprolol 50mg daily The following meds have been stopped: -Eliquis -Hydroxyzine -Duloxetine Take all other meds as previously prescribed Return to ED if you develop new or worsening symptoms. Diagnoses: #NSTEMI #Rhabdomyolysis # Acute encephalopathy, resolving #Constipation, resolved #Hypokalemia #Hypophosphatemia: #Type 2 diabetes mellitus #Bipolar disorder #Anxiety Plan of care discussed with senior resident Dr. Larry PGY-[address] Gardner. Ugo South MD PGY-1 Time Spent with Patient Time attestation: Total time spent providing and/or coordinating discharge services: Exam Vital Signs Temp Pulse Resp BP Pulse Ox O2 Del Method O2 Flow Rate 97.7 F 89 20 162/82 H 97 Room Air 1.5 11/16/24 03:51 11/16/24 03:51 11/16/24 03:51 11/16/24 03:51 11/16/24 03:51 11/16/24 03:51 11/15/24 13:45 Discharge Plan Plan Patient Disposition: Left Against Medical Advice Care Plan Goals: Please follow up with PCP in 1-2 weeks. Please make appointment to follow up with pricing clerk. You have been started on following meds: -Aspirin 81mg daily -Atorvastatin 40mg daily before bedtime -Brilinta 90mg twice daily -levothyroxine 50 mcg on an empty stomach -metoprolol 50mg daily The following meds have been stopped: -Eliquis -Hydroxyzine -Duloxetine Take all other meds as previously prescribed Return to ED if you develop new or worsening symptoms. Prescriptions/Referrals Prescriptions/Med Rec: New aspirin 81 mg capsule 81 mg PO QDAY 30 Days Qty: 30 0RF levothyroxine 25 mcg Tablet 50 mcg PO ACBR 30 Days Qty: 30 0RF pantoprazole 40 mg Tablet,Delayed Release (Dr/Ec) 40 mg PO QDAY 14 Days Qty: 14 0RF Brilinta 90 mg Tablet 90 mg PO BID 60 Days Qty: 120 0RF atorvastatin 40 mg tablet 40 mg PO HS 30 Days Qty: 30 0RF metoprolol succinate 50 mg capsule,sprinkle,ER 24hr 50 mg PO QDAY 30 Days Qty: 30 0RF metformin 500 mg tablet 500 mg PO BID Qty: 30 0RF Continued fexofenadine [Taylor Allergy] 180 mg tablet 180 mg PO Q24H PRN (Reason: allergy) Qty: 30 0RF carvedilol 6.25 mg Tablet 6.25 mg PO BID Rx Instructions: must administer with a meal/food loperamide 2 mg Capsule 2 mg PO Q4H PRN (Reason: Loose Stool) Rx Instructions: administer after each loose stool until symptoms controlled; do not exceed 8 mg per 24 hrs isosorbide mononitrate 30 mg Tablet Extended Release 24 Hr 30 mg PO QAM amlodipine 10 mg Tablet 10 mg PO QDAY omeprazole 20 mg capsule,delayed release(DR/EC) 20 mg PO 1XD ondansetron 4 mg tablet,disintegrating 4 mg PO 4XD PRN (Reason: Nausea And Vomiting) losartan 50 mg tablet 50 mg PO BID acetaminophen [Pain Relief (acetaminophen)] 325 mg tablet 650 mg PO 4XD PRN (Reason: pain) tizanidine [Zanaflex] 4 mg capsule 8 mg PO Q8H PRN (Reason: muscle spasticity) buspirone 30 mg tablet 30 mg PO BID Qty: 60 2RF Discontinued levothyroxine 25 mcg Tablet 50 mcg PO QDAY Qty: 0 gabapentin 800 mg Tablet 800 mg PO TID hydroxyzine HCl 25 mg Tablet 25 mg PO QID PRN (Reason: Anxiety) duloxetine 60 mg Capsule,Delayed Release(Dr/Ec) 60 mg PO QDAY Eliquis 5 mg tablet 5 mg PO BID Qty: 10 0RF Referrals: David Dietz [Primary Care Provider] - Patient/Caregiver Discharge Instructions Education Materials: Cardiac Catheterization Dc, Preventing Surgical Site Infections, Procedural Sedation, Cardiac Cath Transradial Print Language: Tamazight Quality Discharge Quality Measures VTE prophylaxis
== END 2024-11-16 07:05 | disposition left against medical advice (07) | DRG 322 ==
LOC: SERX 14:24 → SERHOLD 19:33 → S2NX 23:08
PROVIDERS: Internal Medicine Cardiovascular Disease; Nurse Practitioner Primary Care; Student in an Organized Health Care Education/Training Program; Admitting Provider Student in an Organized Health Care Education/Training Program; Emergency Provider Emergency Medicine; PCP Family Medicine; Visit Provider Student in an Organized Health Care Education/Training Program
PROC: 027035Z Dilation of Coronary Artery, One Artery with Two Drug-eluting Intraluminal Devices, Percutaneous Approach (ICD-10-PCS; principal; 2024-11-15 11:30)
DX: I21.4 Non-ST elevation (NSTEMI) myocardial infarction (principal); M62.82 Rhabdomyolysis; G93.40 Encephalopathy, unspecified; I10 Essential (primary) hypertension; J44.9 Chronic obstructive pulmonary disease, unspecified; F41.9 Anxiety disorder, unspecified; F31.9 Bipolar disorder, unspecified; S80.811A Abrasion, right lower leg, initial encounter; E11.51 Type 2 diabetes mellitus with diabetic peripheral angiopathy without gangrene; E87.6 Hypokalemia; Z89.112 Acquired absence of left hand; Z85.41 Personal history of malignant neoplasm of cervix uteri; Z53.29 Procedure and treatment not carried out because of patient's decision for other reasons; E83.39 Other disorders of phosphorus metabolism; K59.00 Constipation, unspecified
CPT/HCPCS: 36415; 70450; 71045; 73522; 73590; 73630; 80053; 80061; 80307; 81001; 82550; 83036; 83605; 83690; 83735; 83880; 84100; 84145; 84484; 85025; 85347; 85610; 85730; 87040; 87086; 87502; 92610; 93005; 93306; 94640; 94664; 96365; 96366; 96367; 97162; 99152; 99153; 99285; A4649; A9270; C1725; C1769; C1874; C1887; C1894; J0171; J0360; J0461; J0696; J1643; J1644; J1815; J2250; J2270; J2310; J2371; J2470; J3010; J3475; J3480; J3490; J7030; J7040; J7050; J7999; Q9967; J1920; J2305

== ENCOUNTER 2024-11-29 11:51 | Emergency (ER) | payer OTHER, MEDICAID, SELFPAY ==
[2024-11-29 12:03] VITALS: BP 154/84; PULSE 86; RESP 20; TEMP 36.9; O2SAT 99
[2024-11-29 12:05] VITALS: BMI 31.7
--- NOTE | 2024-11-29 12:37 | XR_ITS ---
Examination: AP chest single view TECHNIQUE: AP sitting portable chest single view Exam date and time: November 29, 2024 1244 hours INDICATIONS: Shortness breath chest pain beginning 2 days ago. FINDINGS: Pneumonia left base obscuring detail left hemidiaphragm Normal heart size Surgical clips overlie the left upper chest IMPRESSION: Significant left base pneumonia
--- NOTE | 2024-11-29 12:38 | PD.EDRME ---
Rapid Medical Screening Exam RME Arrival date/time: 11/29/24 11:51 64-year-old female who presents to the emergency department with complaints of chest pain shortness of breath. I have greeted and performed a focused initial assessment of this patient. Initial appropriate labs ordered at this time. A comprehensive ED assessment and evaluation of the patient and analysis of all test and completion of medical decision making process will be conducted by additional ED provider. Chief Complaint: Shortness of Breath/Dyspnea Time Seen by Provider: 11/29/24 12:19 Vital signs: Vital Signs Temperature 98.4 F 11/29/24 12:03 Pulse Rate 86 11/29/24 12:03 Respiratory Rate 20 11/29/24 12:03 Blood Pressure 154/84 H 11/29/24 12:03 Pulse Oximetry (%) 99 11/29/24 12:03 Oxygen Delivery Method Room Air 11/29/24 12:03
[2024-11-29 13:33] LABS: Basophils % (Auto) 0 % (0-2.5); Eosinophils % (Auto) 0 % (0-10); Hematocrit 36.9 % (36.0-46.0); Hemoglobin 12.4 g/dL (12.0-16.0); Immature Granulocytes % (Auto) 1 % (0-0); Immature Granulocytes Auto 0.06 Thou/mm3 (0.00-0.00); Lymphocytes # (Auto) 1.1 Thou/mm3 (1.0-4.8); Lymphocytes % (Auto) 8 % (10-50); Mean Corpuscular HGB Conc 33.6 g/dl (31.0-37.0); Mean Corpuscular Hemoglobin 29.7 pg (25.0-35.0); Mean Corpuscular Volume 89 fL (80-100); Monocytes # (Auto) 0.9 Thou/mm3 (0.0-0.8); Monocytes % (Auto) 7 % (0-12); Neutrophils # (Auto) 10.5 Thou/mm3 (1.8-7.7); Neutrophils % (Auto) 83 % (37-80); Nucleated Red Blood Cell % 0 /100 WBC (0); Platelet Count 321 Thou/mm3 (140-440); Red Blood Count 4.17 Miln/mm3 (4.00-5.20); White Blood Count 12.6 Thou/mm3 (3.6-11.0)
[2024-11-29 13:48] LABS: INR 1.1 (0.9-1.3); Partial Thromboplastin Time 27.6 Seconds (22.0-36.0); Prothrombin Time 11.7 Seconds (9.0-12.2)
[2024-11-29 13:52] LABS: B-Type Natriuretic Peptide 1129 pg/mL (0-100)
[2024-11-29 13:53] LABS: Alanine Aminotransferase 20 U/L (10-49); Albumin, Serum 4.3 gm/dL (3.4-4.8); Albumin/Globulin Ratio 1.6 (1.2-2.2); Alkaline Phosphatase 117 U/L (46-116); Anion Gap 9 (7-16); Aspartate Amino Transferase 22 U/L (0-34); BUN/Creatinine Ratio 12 Ratio (12-20); Bilirubin,Total 0.4 mg/dL (0.3-1.2); Blood Urea Nitrogen 7 mg/dL (9-23); Calcium 9.8 mg/dL (8.3-10.6); Calcium (Corrected) 9.8 mg/dL (8.5-10.1); Carbon Dioxide 26.2 mMol/L (20.0-31.0); Chloride 100 mMol/L (98-107); Creatinine (Component) 0.6 mg/dL (0.6-1.3); Globulin 2.7 gm/dL (2.3-3.5); Glucose 177 mg/dL (74-106); Lipase 21 U/L (12-53); Magnesium 1.3 mg/dL (1.6-2.6); Osmolality,Calculated 272 (275-295); Potassium 3.2 mMol/L (3.4-5.1); Sodium 135 mMol/L (136-145); eGFR > 60 See Note
[2024-11-29 14:36] VITALS: BP 176/78; PULSE 85; RESP 16; TEMP 36.9; O2SAT 96
--- NOTE | 2024-11-29 15:03 | EDNOTE_ITS ---
ED SOB =RME/HPI General Chief Complaint: Shortness of Breath/Dyspnea Stated Complaint: CXP/SOB TODAY, RECENT CA WITH STENTS Time Seen by Provider: 11/29/24 12:19 Arrival date/time: 11/29/24 11:51 RME / HPI RME / HPI Narrative: 11/29/24 11:51 64-year-old female who presents to the emergency department with complaints of chest pain shortness of breath. I have greeted and performed a focused initial assessment of this patient. Initial appropriate labs ordered at this time. A comprehensive ED assessment and evaluation of the patient and analysis of all test and completion of medical decision making process will be conducted by [facility] ED provider. DR. MENDEZ MAIN ED EVALUATION 64 year old female with history of CAD s/p PCI, CA, hypertension, diabetes, COPD, peripheral arterial disease, s/p left hand amputation presents to the ED for evaluation of chest pain, cough, and shortness of breath beginning yesterday. Chest pain described as aching in sensation that is located most to the left side, rating as moderate. Accompanied by a productive cough, feeling short of breath, and subjective fevers. Denies sweats, abdominal pain, nausea, vomiting, diarrhea, or urinary symptoms. Related Data Home Medications ?Medication ?Instructions ?Recorded ?Confirmed acetaminophen 325 mg tablet (Pain 650 mg PO 4XD PRN pain 11/11/24 11/11/24 Relief (acetaminophen)) amlodipine 10 mg tablet 10 mg PO QDAY 11/11/24 11/11/24 carvedilol 6.25 mg tablet 6.25 mg PO BID 11/11/24 11/11/24 isosorbide mononitrate 30 mg 30 mg PO QAM 11/11/24 11/11/24 tablet,extended release 24 hr loperamide 2 mg capsule 2 mg PO Q4H PRN Loose Stool 11/11/24 11/11/24 losartan 50 mg tablet 50 mg PO BID 11/11/24 11/11/24 omeprazole 20 mg capsule,delayed 20 mg PO 1XD 11/11/24 11/11/24 release ondansetron 4 mg disintegrating 4 mg PO 4XD PRN Nausea And Vomiting 11/11/24 11/11/24 tablet tizanidine 4 mg capsule (Zanaflex) 8 mg PO Q8H PRN muscle spasticity 11/11/24 11/11/24 Previous Rx's ?Medication ?Instructions ?Recorded buspirone 30 mg tablet 30 mg PO BID #60 tabs 05/30/24 fexofenadine 180 mg tablet 180 mg PO Q24H PRN allergy #30 tabs 06/10/24 (Taylor Allergy) aspirin 81 mg capsule 81 mg PO QDAY 30 days #30 caps 11/16/24 atorvastatin 40 mg tablet 40 mg PO HS 30 days #30 tabs 11/16/24 levothyroxine 25 mcg tablet 50 mcg (2 x 25 mcg) PO ACBR 30 11/16/24 days #30 tabs metformin 500 mg tablet 500 mg PO BID #30 tabs 11/16/24 metoprolol succinate 50 mg capsule 50 mg PO QDAY 30 days #30 ea 11/16/24 sprinkle, ext. release 24 hr pantoprazole 40 mg tablet,delayed 40 mg PO QDAY 14 days #14 tabs 11/16/24 release ticagrelor 90 mg tablet (Brilinta) 90 mg PO BID 60 days #120 tabs 11/16/24 albuterol sulfate 90 mcg/actuation 2 inh inhalation Q4H PRN shortness 11/29/24 aerosol inhaler of breath or wheezing #8.5 grams cephalexin 500 mg capsule 500 mg PO BID 10 days #20 caps 11/29/24 doxycycline hyclate 100 mg capsule 100 mg PO BID 10 days #20 caps 11/29/24 Allergies Allergy/AdvReac Type Severity Reaction Status Date / Time codeine Allergy Severe Rash Verified 11/29/24 12:08 meperidine [From Demerol] Allergy Severe Rash Verified 11/29/24 12:08 Sulfa (Sulfonamide Allergy Severe Rash Verified 11/29/24 12:08 Antibiotics) Review of Systems Review of Systems Narrative Review of Systems: GEN: No fever, no chills, no weight loss EYES: No discharge, no visual changes, no pain HEENT: No ear pain, no congestion, no sore throat PULM: +shortness of breath, +cough, no congestion CV: + chest pain, no palpitations GI: No nausea, no vomiting, no diarrhea, no pain, no constipation : No frequency, no urgency and no dysuria MUSC/SKEL No joint pain, no back pain SKIN: No rash NEURO: No weakness, no headache Past Medical History Past Medical History CARDIAC: Positive Cardiac Disorders, Coronary Artery Disease, Atherosclerotic Heart Disease and Hypertension RESPIRATORY: Positive Chronic Obstructive Pulmonary Disease (COPD) and Asthma GASTROINTESTINAL: Positive Gastrointestinal Disorders and Obesity MUSCULOSKELETAL: Positive Musculoskeletal Disorders, Arthritis, Rheumatoid Arthritis, Degenerative Disk Disease and Fibromyalgia ENDOCRINE: Positive Endocrine Disorders and Diabetes Mellitus Type 2 PSYCHO/SOCIAL: Positive Bipolar Disorder and Anxiety OTHER HISTORY: Positive Falls and Cervical Cancer Surgical History SURGICAL: Positive Oral Surgery, Hysterectomy and Tubal Ligation Social History SMOKING STATUS: Heavy (> 1 pack/day) SUBSTANCE USE: does not use ED Exam Narrative Physical exam: GENERAL APPEARANCE: Well hydrated, well nourished, in no acute distress. VITALS: All vitals were reviewed and the pulse ox is 96% on room air which is normal according to my interpretation. HEENT: Normocephalic, atramatic, EOMI, EACs are patent. There is no bulge or retraction. Throat without erythema or exudate. Moist oromucosa. No jaundice NECK: Supple, no JVD or bruits. CARDIOVASCULAR: Heart regular without S3-S4 or murmur. No rubs or gallops. LUNGS/CHEST: Minimal crackles left base. No rales, rhonchi, or wheezing. ABDOMEN: Soft, nontender, with normal bowel sounds. No pulsatile masses. No rebound, rigidity, or guarding. No incarcerated hernia. Normal inspection and palpation. EXTREMITIES: There are two side by side healing diabetic foot ulcerations with eschar on the left foot with ring of minor cellulitis around them. No edema, clubbing, or cyanosis. Intact CSM SKIN: Warm and dry without rashes. Normal inspection. MUSCULOSKELETAL: No gross deformity, full ROM all extremities NEURO: Alert and oriented x3. Cranial nerves II through XII grossly intact. There are no other motor or sensory deficits noted. PSYCHIATRIC: Normal mood and affect. No psychosis. Course Course Course Narrative: chest xray ordered to help determine etiology of chest pain. Quality Measures none Orders Category Date Time Status Security Installation Technician STAT Care 11/29/24 12:37 Active Continuous Pulse Oximetry ONCE Care 11/29/24 12:37 Active EKG (ED ONLY) *Do not use* NOW Care 11/29/24 12:08 Completed Insert IV STAT Care 11/29/24 12:37 Active EKG (ED Only) Stat Exams 11/29/24 12:08 Ordered XR chest 1V portable Stat Exams 11/29/24 12:37 Completed B-Type Natriuretic Peptide Stat Lab 11/29/24 13:13 Completed CBC Stat Lab 11/29/24 13:13 Completed Comprehensive Metabolic Panel Stat Lab 11/29/24 13:13 Completed Lipase Stat Lab 11/29/24 13:13 Completed Magnesium Stat Lab 11/29/24 13:13 Completed Partial Thromboplastin Time Stat Lab 11/29/24 13:13 Completed Prothrombin Time with INR Stat Lab 11/29/24 13:13 Completed Troponin I Stat Lab 11/29/24 13:13 Completed Doxycycline [Vibramycin] Med 11/29/24 15:16 Once 100 mg PO X1 ONE Magnesium Sulf 50% Inj (gm) Med 11/29/24 15:15 Discontinued 1 gm IM X1 ONE Potassium Chloride [K-Dur] Med 11/29/24 15:15 Discontinued 40 meq PO X1 ONE cephALEXin [Keflex] Med 11/29/24 15:16 Once 500 mg PO X1 ONE Vital Signs Vital signs: Vital Signs Temperature 98.4 F 11/29/24 12:03 Pulse Rate 86 11/29/24 12:03 Respiratory Rate 11/29/24 12:03 Blood Pressure 154/84 H 11/29/24 12:03 Pulse Oximetry (%) 99 11/29/24 12:03 Oxygen Delivery Method Room Air 11/29/24 12:03 Shortness of Breath / Dyspnea MDM Narrative MDM Narrative:: IShameka, zeb scribing for and in the presence of Dr. Mendez. CBC with a WBC count of 12.6. Potassium of 3.2. The rest of CMP is negative. Magnesium is low. Pro time is normal. Troponin is negative. Chest x-ray interpreted by me. Cannot rule out a small infiltrate in the left lower lobe. Heart is borderline in size. Mediastinum is normal. Normal bones no. No teo CHF. No consolidation. Twelve-lead EKG at 12:37 PM and interpreted by me: Sinus rhythm. Heart rate of 87. Normal axis. No ST elevation or depression. No PVC. No STEMI. Regular rate and rhythm. Patient has no respiratory distress. Interacts he preferred laying down to sleep. O2 saturation 96% room air. In incidental finding also showed that she had diabetic decubitus ulcers lateral aspect of the left foot with eschar formation. She says she has an appointment with her medical doctor to discuss this foot lesion. In the emergency department I am giving the patient potassium by mouth, magnesium IM and a combination of Keflex and doxycycline. Patient data External records reviewed:: [facility] previous records (I reviewed admission from 11/11/2024 through ) Clinical information provided by:: patient Social determinants that could affect healthcare access:: none Patient has the following chronic illnesses:: CAD s/p PCI, CA, hypertension, diabetes, COPD, peripheral arterial disease, s/p left hand amputation How is presenting disease/condition affected by chronic disease/condition?: exacerbated by Evaluation data The following diagnostics were reviewed and interpreted by me:: lab results and radiology exam(s) Lab and/or radiology exams considered but not ordered:: None Interpretation Summary: Ordering Physician: Ana Lozano Date of Service: 11/29/24 Procedure(s): XR chest 1V portable Accession Number(s): [id number] cc: Willard Mills MD; Ana Lozano~ Examination: AP chest single view TECHNIQUE: AP sitting portable chest single view Exam date and time: November 29, 2024 1244 hours INDICATIONS: Shortness breath chest pain beginning 2 days ago. FINDINGS: Pneumonia left base obscuring detail left hemidiaphragm Normal heart size Surgical clips overlie the left upper chest IMPRESSION: Significant left base pneumonia Dictated By: Willard Mills MD Signed By: <Electronically signed by Willard Mills MD in OV> 11/29/24 1305 Medications / Prescriptions Medications or Prescriptions considered but not ordered:: None Medication administrations:: Medication Administration History Discontinued Medications Magnesium Sulfate (Magnesium Sulf 0.5 Gm/Ml Vial 2 Ml) 1 gm IM X1 ONE Stop: 11/29/24 15:16 Potassium Chloride (Potassium Chloride 20 Meq Tabcr) 40 meq PO X1 ONE Stop: 11/29/24 15:16 See above Consultations Consultation(s) initiated? (list below): No Diagnosis Shortness of Breath Differential Diagnosis: acute exacerbation of chronic obstructive airways disease, congestive heart failure, community acquired pneumonia and asthma with exacerbation Most likely diagnosis given after review of the tests above:: Pneumonia Diabetic foot ulcer cellulitis Hypomagnesemia Hypokalemia Admission Indicated Admission indicated?: not indicated Admission Request Was there a request for admission?: No Disposition Plan Disposition Plan: Discharge Discharge Attestation Discharge Attestation: The patient and all family members were given an opportunity to ask questions and understood the discharge instructions. Discharge instructions specifically effects, indications for sooner follow up or return to the emergency department, and the expected course of current diagnosis. Patient condition: Stable Discharge Plan Plan Patient Disposition: HOME (Self Care) Disposition Comment: Stable for DC home Prescriptions/Referrals Prescriptions/Med Rec: New cephalexin 500 mg capsule 500 mg PO BID 10 Days Qty: 20 0RF doxycycline hyclate 100 mg capsule 100 mg PO BID 10 Days Qty: 20 0RF albuterol sulfate 90 mcg/actuation HFA aerosol inhaler 2 inh inhalation Q4H PRN (Reason: shortness of breath or wheezing) Qty: 8.5 0RF No Action fexofenadine [Taylor Allergy] 180 mg tablet 180 mg PO Q24H PRN (Reason: allergy) Qty: 30 0RF carvedilol 6.25 mg Tablet 6.25 mg PO BID Rx Instructions: must administer with a meal/food loperamide 2 mg Capsule 2 mg PO Q4H PRN (Reason: Loose Stool) Rx Instructions: administer after each loose stool until symptoms controlled; do not exceed 8 mg per 24 hrs isosorbide mononitrate 30 mg Tablet Extended Release 24 Hr 30 mg PO QAM amlodipine 10 mg Tablet 10 mg PO QDAY omeprazole 20 mg capsule,delayed release(DR/EC) 20 mg PO 1XD ondansetron 4 mg tablet,disintegrating 4 mg PO 4XD PRN (Reason: Nausea And Vomiting) losartan 50 mg tablet 50 mg PO BID acetaminophen [Pain Relief (acetaminophen)] 325 mg tablet 650 mg PO 4XD PRN (Reason: pain) tizanidine [Zanaflex] 4 mg capsule 8 mg PO Q8H PRN (Reason: muscle spasticity) aspirin 81 mg capsule 81 mg PO QDAY 30 Days Qty: 30 0RF levothyroxine 25 mcg Tablet 50 mcg PO ACBR 30 Days Qty: 30 0RF pantoprazole 40 mg Tablet,Delayed Release (Dr/Ec) 40 mg PO QDAY 14 Days Qty: 14 0RF Brilinta 90 mg Tablet 90 mg PO BID 60 Days Qty: 120 0RF atorvastatin 40 mg tablet 40 mg PO HS 30 Days Qty: 30 0RF metoprolol succinate 50 mg capsule,sprinkle,ER 24hr 50 mg PO QDAY 30 Days Qty: 30 0RF metformin 500 mg tablet 500 mg PO BID Qty: 30 0RF buspirone 30 mg tablet 30 mg PO BID Qty: 60 2RF Referrals: David Dietz [Primary Care Provider] - In 1 week Problem List Clinical Impression: Pneumonia, Hypomagnesemia, Hypokalemia, Diabetic foot ulcers Patient/Caregiver Discharge Instructions Education Materials: Diabetes: Inspecting Your Feet, ED Hypokalemia, ED Pneumonia (Adult) Additional Instructions: You have pneumonia in the left base, diabetic foot ulcers on the left, low magnesium, low potassium. Take medication as prescribed. See your doctor for recheck and further care in 3 days. Return to the nearest emergency department if condition worsens or if new symptoms develop. Print Language: Welsh Stand Alone Forms: Mila Award Info., Patient Portal Info Letter
--- NOTE | 2024-11-29 16:06 | PC.CC ---
ASW engaged to arrange transport for pt back to her residence @ [address] [place] [address]. ASW met with pt at bedside to confirm pt is agreeable to transport via [employer]. Pt is agreeable. Transport arranged via [employer] at this time.
== END 2024-11-29 16:36 | disposition home or self-care (01) ==
PROVIDERS: Nurse Practitioner Primary Care; Emergency Provider Emergency Medicine; PCP Family Medicine
DX: J44.0 Chronic obstructive pulmonary disease with (acute) lower respiratory infection (principal); J18.9 Pneumonia, unspecified organism; E83.42 Hypomagnesemia; E87.6 Hypokalemia; E11.621 Type 2 diabetes mellitus with foot ulcer; L89.899 Pressure ulcer of other site, unspecified stage; L03.116 Cellulitis of left lower limb; Z79.84 Long term (current) use of oral hypoglycemic drugs
CPT/HCPCS: 36415; 71045; 80053; 83690; 83735; 83880; 84484; 85025; 85610; 85730; 93005; 96372; 99283

== ENCOUNTER 2024-12-05 09:53 | Emergency (ER) | payer OTHER, MEDICAID, SELFPAY ==
[2024-12-05] VITALS (11 sets, daily range): BP systolic 147–186; BP diastolic 50–118; PULSE 22–84; RESP 14–19; TEMP 36.8–37.1; O2SAT 95–97; BMI 31.0
--- NOTE | 2024-12-05 10:29 | XR_ITS ---
Examination: CT cervical spine without contrast 2-D sagittal reconstructions 2-D coronal reconstructions 3-D reconstructions. Exam date and time:December 05, 2024 1618 hours INDICATIONS: Patient fell today with into the neck, neck pain COMPARISON: 07/16/2023 CTDI:vol (mGy) 8.48 DLP: (mGycm) 172 Technique: Multiple 2 mm axial sections of the cervical spine have been obtained. The coronal and sagittal reconstructions have been obtained. 3-D reconstructions have been obtained. Low dose protocols were performed. One or more of the following dose reduction techniques were used; automated exposure control, adjustment of the mA and/or KV according to patient size, use of iterative reconstruction technique. Findings: Axial sections demonstrate intact base of the skull. Minimal anterolisthesis C3 on C4, C4 on C5 C1 exhibit satisfactory relationship to the odontoid. No acute cervical vertebral body fracture seen. Alignment posterior spinous processes satisfactory. Impression: No acute cervical fracture.
--- NOTE | 2024-12-05 10:29 | EKG_ITS ---
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
--- NOTE | 2024-12-05 10:29 | XR_ITS ---
Examination: CT brain head without contrast. 2-D sagittal coronal reconstructions Date and time of exam:December 05, 2024 at 1618 hours Comparison November 11, 2024 INDICATIONS: Patient fell today with injury to the head, head pain and hematoma on the right side of the eye CTDI: vol (mGy):49.7 DLP: (mGycm): 1046 Technique: Multiple CT axial sections of the brain have been obtained, 5 mm slice thickness. Contrast has not been administered. 2-D sagittal, coronal reconstructions have been obtained Low dose protocols were performed. One or more of the following dose reduction techniques were used; automated exposure control, adjustment of the mA and/or KV according to patient size, use of iterative reconstruction technique. Findings: No significant ventricular enlargement. Intra-axial or extra-axial hemorrhage density is not seen. No mass effect or midline shift Basal cisterns are not remarkable. Fourth ventricle is midline. Cranial vault intact. Again noted old fracture right inferior orbital rim Very prominent soft tissue swelling anterior lateral to the right optic globe, in the right frontal scalp, including right frontal scalp hematoma 20 x 8 mm The optic globe on the right appears intact as well as left Impression: Negative for acute hemorrhage, mass effect or midline shift
--- NOTE | 2024-12-05 10:30 | EDRME_ITS ---
Rapid Medical Screening Exam [facility] Arrival date/time: 12/05/24 09:53 64-year-old female presents to the emergency department today complains of head injury after fall Chief Complaint: Head Injury Time Seen by Provider: 12/05/24 10:19 Vital signs: Vital Signs Temperature 98.5 F 12/05/24 10:19 Pulse Rate 74 12/05/24 10:19 Respiratory Rate 19 12/05/24 10:19 Blood Pressure 147/84 H 12/05/24 10:19 Pulse Oximetry (%) 95 12/05/24 10:19 Oxygen Delivery Method Room Air 12/05/24 10:19
[2024-12-05 11:13] LABS: Basophils % (Auto) 0 % (0-2.5); Eosinophils % (Auto) 0 % (0-10); Hematocrit 36.7 % (36.0-46.0); Hemoglobin 12.5 g/dL (12.0-16.0); Immature Granulocytes % (Auto) 1 % (0-0); Immature Granulocytes Auto 0.06 Thou/mm3 (0.00-0.00); Lymphocytes # (Auto) 1.1 Thou/mm3 (1.0-4.8); Lymphocytes % (Auto) 9 % (10-50); Mean Corpuscular HGB Conc 34.1 g/dl (31.0-37.0); Mean Corpuscular Hemoglobin 30.2 pg (25.0-35.0); Mean Corpuscular Volume 89 fL (80-100); Monocytes # (Auto) 0.5 Thou/mm3 (0.0-0.8); Monocytes % (Auto) 4 % (0-12); Neutrophils # (Auto) 10.9 Thou/mm3 (1.8-7.7); Neutrophils % (Auto) 87 % (37-80); Nucleated Red Blood Cell % 0 /100 WBC (0); Platelet Count 486 Thou/mm3 (140-440); RDW Standard Deviation 46.7 fL (36.4-46.3); Red Blood Count 4.14 Miln/mm3 (4.00-5.20); White Blood Count 12.5 Thou/mm3 (3.6-11.0)
[2024-12-05 11:36] LABS: Alanine Aminotransferase 12 U/L (10-49); Albumin, Serum 4.3 gm/dL (3.4-4.8); Albumin/Globulin Ratio 1.5 (1.2-2.2); Alkaline Phosphatase 128 U/L (46-116); Anion Gap 8 (7-16); Aspartate Amino Transferase 19 U/L (0-34); BUN/Creatinine Ratio 28 Ratio (12-20); Bilirubin,Total 0.6 mg/dL (0.3-1.2); Blood Urea Nitrogen 22 mg/dL (9-23); Calcium 9.9 mg/dL (8.3-10.6); Calcium (Corrected) 9.9 mg/dL (8.5-10.1); Carbon Dioxide 26.7 mMol/L (20.0-31.0); Chloride 101 mMol/L (98-107); Creatinine (Component) 0.8 mg/dL (0.6-1.3); Estimated Creatinine Clearance 72.7 mL/min (>60); Globulin 2.8 gm/dL (2.3-3.5); Glucose 176 mg/dL (74-106); Osmolality,Calculated 279 (275-295); Potassium 4.2 mMol/L (3.4-5.1); Sodium 136 mMol/L (136-145); Total Protein 7.1 gm/dL (5.7-8.2); Troponin I < 0.020 ng/mL (0.0-0.045); eGFR > 60 See Note
--- NOTE | 2024-12-05 12:11 | PC.NURSE ---
@1211- RN CALLED PT'S NAME IN LOBBY; NO ANSWER AT THIS TIME. @1221- RN CALLED PT'S NAME IN LOBBY AGAIN; STILL NO ANSWER AT THIS TIME.
--- NOTE | 2024-12-05 12:53 | PC.NURSE ---
Pt HR irregular. HR jumps from the 40's to 60's/70'S then drops back down to 40's. MADE AWARE.
--- NOTE | 2024-12-05 13:01 | PC.NURSE ---
DR. SOLITARIO AT BEDSIDE ASSESSING PT.
--- NOTE | 2024-12-05 13:08 | PD.EDADULT ---
ED General RME/HPI General Chief complaint: Head Injury Stated complaint: fell, hit right side of face, passed out, Time Seen by Provider: 12/05/24 10:19 Arrival date/time: 12/05/24 09:53 RME / HPI RME / HPI narrative: 12/05/24 09:53 64-year-old female presents to the emergency department today complains of head injury after fall Related Data Home Medications ?Medication ?Instructions ?Recorded ?Confirmed acetaminophen 325 mg tablet (Pain 650 mg PO 4XD PRN pain 11/11/24 11/11/24 Relief (acetaminophen)) amlodipine 10 mg tablet 10 mg PO QDAY 11/11/24 11/11/24 carvedilol 6.25 mg tablet 6.25 mg PO BID 11/11/24 11/11/24 isosorbide mononitrate 30 mg 30 mg PO QAM 11/11/24 11/11/24 tablet,extended release 24 hr loperamide 2 mg capsule 2 mg PO Q4H PRN Loose Stool 11/11/24 11/11/24 losartan 50 mg tablet 50 mg PO BID 11/11/24 11/11/24 omeprazole 20 mg capsule,delayed 20 mg PO 1XD 11/11/24 11/11/24 release ondansetron 4 mg disintegrating 4 mg PO 4XD PRN Nausea And Vomiting 11/11/24 11/11/24 tablet tizanidine 4 mg capsule (Zanaflex) 8 mg PO Q8H PRN muscle spasticity 11/11/24 11/11/24 Previous Rx's ?Medication ?Instructions ?Recorded buspirone 30 mg tablet 30 mg PO BID #60 tabs 05/30/24 fexofenadine 180 mg tablet 180 mg PO Q24H PRN allergy #30 tabs 06/10/24 (Taylor Allergy) aspirin 81 mg capsule 81 mg PO QDAY 30 days #30 caps 11/16/24 atorvastatin 40 mg tablet 40 mg PO HS 30 days #30 tabs 11/16/24 levothyroxine 25 mcg tablet 50 mcg (2 x 25 mcg) PO ACBR 30 11/16/24 days #30 tabs metformin 500 mg tablet 500 mg PO BID #30 tabs 11/16/24 metoprolol succinate 50 mg capsule 50 mg PO QDAY 30 days #30 ea 11/16/24 sprinkle, ext. release 24 hr ticagrelor 90 mg tablet (Brilinta) 90 mg PO BID 60 days #120 tabs 11/16/24 albuterol sulfate 90 mcg/actuation 2 inh inhalation Q4H PRN shortness 11/29/24 aerosol inhaler of breath or wheezing #8.5 grams cephalexin 500 mg capsule 500 mg PO BID 10 days #20 caps 11/29/24 doxycycline hyclate 100 mg capsule 100 mg PO BID 10 days #20 caps 11/29/24 Allergies Allergy/AdvReac Type Severity Reaction Status Date / Time codeine Allergy Severe Rash Verified 11/29/24 12:08 meperidine [From Demerol] Allergy Severe Rash Verified 11/29/24 12:08 Sulfa (Sulfonamide Allergy Severe Rash Verified 11/29/24 12:08 Antibiotics) ED Exam Narrative Physical exam: Physical Exam: General: The vital signs were reviewed. 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 Head & Scalp: Normocephalic, atraumatic. Face: Appears normal and is without lesions, deformity. Ears: Left external pinna appears normal. Right external pinna appears normal. Eyes: The sclera is anicteric. No obvious photophobia. The Left and Right Orbit/Lid/Conjunctiva appears normal without swelling, discoloration or injection. Nose: The nose is without deformity, discharge or tenderness; Throat: Appears normal. The mucous membranes are pink and moist without exudates, redness or mass seen. The tongue appears normal. Neck: The neck is supple and no apparent mass or adenopathy. Chest: The chest wall is normal in size and symmetry and has no chest wall tenderness or crepitus. The patient displays normal ventilator effort without retractions, accessory muscle use and has diffuse wheezing in all lung garcía. Cardiovascular: Regular rate and rhythm; No murmurs, rubs, or gallops; Gastrointestinal: The abdomen appears normal. No obvious hernias or mass. The abdomen is soft and benign, non-distended, with no pain, no guarding and no rebound tenderness. Bowel sounds are present and normal sounding. No CVA tenderness. Genitourinary: Back/Spine: No obvious pain or tenderness normal on inspection Extremities/Musculoskeletal/lymphatic: There is multiple ecchymosis on bilateral lower extremities with different ages patient does not recall how some of these happen. The bilateral upper and lower extremities are warm. There is no evidence of arterial insufficiency. There is no evidence of venous insufficiency/edema. The patient spontaneously moves bilateral upper and lower extremities with no pain and no limitation of movement. Skin: The skin is warm, dry and intact. No rashes. No petechia. No purpura. No abnormal bruising. The color is appropriate with no cyanosis. Ecchymosis in bilateral lower extremities of different ages. Mental status/Psychiatric: Mental status is appropriate for age. The patient has no apparent delusions, visual hallucinations, no apparent audible hallucinations. The patient has no apparent suicidal thoughts/ideation and no apparent homicidal thoughts/ideation. Neurological: The patient is awake, alert, interactive, cordial, cooperative and is oriented to name and situation. The patient follows commands and answers historical question with no impairment. There is no visual disturbance apparent. The pupils are equal and reactive bilaterally with normal eye movements and no diplopia The bilateral upper and lower extremities have normal strength, normal range of motion and normal functioning. The gait, station and balance appear to be baseline with no acute change Course Orders Category Date Time Status EKG (ED ONLY) *Do not use* NOW Care 12/05/24 10:[address] cervical spine wo con Stat Exams 12/05/24 10:[address] head/brain wo con Stat Exams 12/05/24 10:29 Ordered EKG (ED Only) Stat Exams 12/05/24 10:29 Draft Alcohol, Blood Medical Stat Lab 12/05/24 13:06 Ordered Ammonia Stat Lab 12/05/24 13:06 Ordered Blood Culture (Lab) Stat Lab 12/05/24 13:06 Ordered CBC Stat Lab 12/05/24 10:55 Completed Comprehensive Metabolic Panel Stat Lab 12/05/24 10:55 Completed Drug Screen,Urine Stat Lab 12/05/24 10:29 Ordered Lactate (Lactic Acid) Stat Lab 12/05/24 13:06 Ordered Troponin I Stat Lab 12/05/24 10:55 Completed UA, C/S IF [Urinalysis, C/S if Indicated] Stat Lab 12/05/24 10:29 Ordered Urinalysis Stat Lab 12/05/24 13:07 Ordered Venous Blood Gas Stat Lab 12/05/24 13:06 Ordered ALBUTEROL RT 0.5ml [Proventil Rt 0.5ml] Med 12/05/24 13:07 Discontinued 10 mg INH X1 ONE MethylPREDNISolone.* [SoluMEDROL Inj] Med 12/05/24 13:07 Discontinued 125 mg IVP X1 ONE Sodium Chloride Rt Indira 0.9% [NS Rt Indira 0.9%] Med 12/05/24 13:07 Active 3 ml INH PRN PRN Vital Signs Vital signs: Vital Signs Temperature 98.5 F 12/05/24 10:19 Pulse Rate 74 12/05/24 10:19 Respiratory Rate 19 12/05/24 10:19 Blood Pressure 147/84 H 12/05/24 10:19 Pulse Oximetry (%) 95 12/05/24 10:19 Oxygen Delivery Method Room Air 12/05/24 10:19 MDM Medications Medication administrations:: Medication Administration History Sodium Chloride (Sodium Chloride Rt Indira 0.9% 3 Ml Nebu) 3 ml INH PRN PRN PRN Reason: SOLN Stop: 01/04/25 13:06 Discontinued Medications Albuterol (Albuterol Rt 2.5 Mg/0.5 Ml Nebu) 10 mg INH X1 ONE Stop: 12/05/24 13:08 Methylprednisolone Sodium Succinate (Methylprednisolone Sod Succ 62.5 Mg/Ml 2ml Vial) 125 mg IVP X1 ONE Stop: 12/05/24 13:08 Medical Decision Making Lab Data 12/05/24 10:55 12/05/24 10:55 Labs: Lab Results 12/05/24 Range/Units 10:55 WBC 12.5 H (3.6-11.0) Thou/mm3 RBC 4.14 (4.00-5.20) Miln/mm3 Hgb 12.5 (12.0-16.0) g/dL Hct 36.7 (36.0-46.0) % MCV 89 (80-100) fL MCH 30.2 (25.0-35.0) pg MCHC 34.1 (31.0-37.0) g/dl RDW Std Deviation 46.7 H (36.4-46.3) fL Plt Count 486 H D (140-440) Thou/mm3 Neut % (Auto) 87 H (37-80) % Lymph % (Auto) 9 L (10-50) % Bradley % (Auto) 4 (0-12) % Eos % (Auto) 0 (0-10) % Baso % (Auto) 0 (0-2.5) % Neut # (Auto) 10.9 H (1.8-7.7) Thou/mm3 Lymph # (Auto) 1.1 (1.0-4.8) Thou/mm3 Bradley # (Auto) 0.5 (0.0-0.8) Thou/mm3 Eos # (Auto) 0.0 (0.0-0.5) Thou/mm3 Baso # (Auto) 0.0 (0.0-0.2) Thou/mm3 Immature Gran # (Auto) 0.06 H (0.00-0.00) Thou/mm3 Absolute Nucleated RBC 0.00 (0.00-0.00) Thou/mm3 Immature Gran % 1 H (0-0) % Nucleated RBC % 0 (0) /100 WBC Sodium 136 (136-145) mMol/L Potassium 4.2 (3.4-5.1) mMol/L Chloride 101 (98-107) mMol/L Carbon Dioxide 26.7 (20.0-31.0) mMol/L Anion Gap 8 (7-16) BUN 22 (9-23) mg/dL Creatinine 0.8 (0.6-1.3) mg/dL Estim Creat Clear Calc 72.7 (>60) mL/min eGFR > 60 (60 - ) See Note BUN/Creatinine Ratio 28 H (12-20) Ratio Glucose 176 H (74-106) mg/dL Calculated Osmolality 279 (275-295) Calcium 9.9 (8.3-10.6) mg/dL Corrected Calcium 9.9 (8.5-10.1) mg/dL Total Bilirubin 0.6 (0.3-1.2) mg/dL AST 19 (0-34) U/L ALT 12 (10-49) U/L Alkaline Phosphatase 128 H (46-116) U/L Troponin I < 0.020 (0.0-0.045) ng/mL Total Protein 7.1 (5.7-8.2) gm/dL Albumin 4.3 (3.4-4.8) gm/dL Globulin 2.8 (2.3-3.5) gm/dL Albumin/Globulin Ratio 1.5 (1.2-2.2) Discharge Plan Prescriptions/Referrals Prescriptions/Med Rec: No Action fexofenadine [Taylor Allergy] 180 mg tablet 180 mg PO Q24H PRN (Reason: allergy) Qty: 30 0RF carvedilol 6.25 mg Tablet 6.25 mg PO BID Rx Instructions: must administer with a meal/food loperamide 2 mg Capsule 2 mg PO Q4H PRN (Reason: Loose Stool) Rx Instructions: administer after each loose stool until symptoms controlled; do not exceed 8 mg per 24 hrs isosorbide mononitrate 30 mg Tablet Extended Release 24 Hr 30 mg PO QAM amlodipine 10 mg Tablet 10 mg PO QDAY omeprazole 20 mg capsule,delayed release(DR/EC) 20 mg PO 1XD ondansetron 4 mg tablet,disintegrating 4 mg PO 4XD PRN (Reason: Nausea And Vomiting) losartan 50 mg tablet 50 mg PO BID acetaminophen [Pain Relief (acetaminophen)] 325 mg tablet 650 mg PO 4XD PRN (Reason: pain) tizanidine [Zanaflex] 4 mg capsule 8 mg PO Q8H PRN (Reason: muscle spasticity) aspirin 81 mg capsule 81 mg PO QDAY 30 Days Qty: 30 0RF levothyroxine 25 mcg Tablet 50 mcg PO ACBR 30 Days Qty: 30 0RF Brilinta 90 mg Tablet 90 mg PO BID 60 Days Qty: 120 0RF atorvastatin 40 mg tablet 40 mg PO HS 30 Days Qty: 30 0RF metoprolol succinate 50 mg capsule,sprinkle,ER 24hr 50 mg PO QDAY 30 Days Qty: 30 0RF metformin 500 mg tablet 500 mg PO BID Qty: 30 0RF cephalexin 500 mg capsule 500 mg PO BID 10 Days Qty: 20 0RF doxycycline hyclate 100 mg capsule 100 mg PO BID 10 Days Qty: 20 0RF albuterol sulfate 90 mcg/actuation HFA aerosol inhaler 2 inh inhalation Q4H PRN (Reason: shortness of breath or wheezing) Qty: 8.5 0RF buspirone 30 mg tablet 30 mg PO BID Qty: 60 2RF Referrals: David Dietz [Primary Care Provider] - In 1 week Patient/Caregiver Discharge Instructions Print Language: Qatari
--- NOTE | 2024-12-05 13:09 | PD.EDFALL ---
ED Fall Injury RME/HPI General Chief Complaint: Head Injury Stated Complaint: fell, hit right side of face, passed out, Time Seen by Provider: 12/05/24 10:19 Arrival date/time: 12/05/24 09:53 RME / HPI RME / HPI Narrative: 12/05/24 09:53 64-year-old female presents to the emergency department today complains of head injury after fall DR. SOLITARIO MAIN ED EVALUATION: 64 year old female presents to the Emergency Department with complaint of head injury after fall today. Pain is described as aching and rated moderate in severity. PMHx: CAD s/p PCI, ID, hypertension, diabetes, COPD, peripheral arterial disease, s/p left hand amputation Social Hx: No tobacco, alcohol, or substance use. Related Data Home Medications ?Medication ?Instructions ?Recorded ?Confirmed acetaminophen 325 mg tablet (Pain 650 mg PO 4XD PRN pain 11/11/24 11/11/24 Relief (acetaminophen)) amlodipine 10 mg tablet 10 mg PO QDAY 11/11/24 11/11/24 carvedilol 6.25 mg tablet 6.25 mg PO BID 11/11/24 11/11/24 isosorbide mononitrate 30 mg 30 mg PO QAM 11/11/24 11/11/24 tablet,extended release 24 hr loperamide 2 mg capsule 2 mg PO Q4H PRN Loose Stool 11/11/24 11/11/24 losartan 50 mg tablet 50 mg PO BID 11/11/24 11/11/24 omeprazole 20 mg capsule,delayed 20 mg PO 1XD 11/11/24 11/11/24 release ondansetron 4 mg disintegrating 4 mg PO 4XD PRN Nausea And Vomiting 11/11/24 11/11/24 tablet tizanidine 4 mg capsule (Zanaflex) 8 mg PO Q8H PRN muscle spasticity 11/11/24 11/11/24 Previous Rx's ?Medication ?Instructions ?Recorded buspirone 30 mg tablet 30 mg PO BID #60 tabs 05/30/24 fexofenadine 180 mg tablet 180 mg PO Q24H PRN allergy #30 tabs 06/10/24 (Taylor Allergy) aspirin 81 mg capsule 81 mg PO QDAY 30 days #30 caps 11/16/24 atorvastatin 40 mg tablet 40 mg PO HS 30 days #30 tabs 11/16/24 levothyroxine 25 mcg tablet 50 mcg (2 x 25 mcg) PO ACBR 30 11/16/24 days #30 tabs metformin 500 mg tablet 500 mg PO BID #30 tabs 11/16/24 metoprolol succinate 50 mg capsule 50 mg PO QDAY 30 days #30 ea 11/16/24 sprinkle, ext. release 24 hr ticagrelor 90 mg tablet (Brilinta) 90 mg PO BID 60 days #120 tabs 11/16/24 albuterol sulfate 90 mcg/actuation 2 inh inhalation Q4H PRN shortness 11/29/24 aerosol inhaler of breath or wheezing #8.5 grams cephalexin 500 mg capsule 500 mg PO BID 10 days #20 caps 11/29/24 doxycycline hyclate 100 mg capsule 100 mg PO BID 10 days #20 caps 11/29/24 Allergies Allergy/AdvReac Type Severity Reaction Status Date / Time codeine Allergy Severe Rash Verified 11/29/24 12:08 meperidine [From Demerol] Allergy Severe Rash Verified 11/29/24 12:08 Sulfa (Sulfonamide Allergy Severe Rash Verified 11/29/24 12:08 Antibiotics) Review of Systems Review of Systems Systems Reviewed: All systems reviewed, normal except as documented Narrative Review of Systems: GEN: No fever, no chills, no weight loss EYES: No discharge, no visual changes, no pain HEENT: No ear pain, no congestion, no sore throat PULM: No shortness of breath, no cough, no congestion CV: No chest pain, no dyspnea on exertion, no palpitations GI: No nausea, no vomiting, no diarrhea, no pain, no constipation : No frequency, no urgency and no dysuria MUSC/SKEL: No joint pain, no back pain SKIN: No rash PSYCH: No hallucinations, no depression HEME/LYMPH: No easy bleeding or bruising tendencies NEURO: No weakness, + headache/ head injury (from fall see HPI) Past Medical History Past Medical History NEUROLOGIC: Negative Neurological Disorders or Seizures CARDIAC: Positive Cardiac Disorders, Myocardial Infarction, Coronary Artery Disease, Atherosclerotic Heart Disease and Hypertension; Negative Congestive Heart Failure RESPIRATORY: Positive Chronic Obstructive Pulmonary Disease (COPD) and Asthma GASTROINTESTINAL: Positive Gastrointestinal Disorders and Obesity GENITOURINARY: Negative Genitourinary Disorders or Renal Disease MUSCULOSKELETAL: Positive Musculoskeletal Disorders, Arthritis, Rheumatoid Arthritis, Degenerative Disk Disease and Fibromyalgia ENDOCRINE: Positive Endocrine Disorders and Diabetes Mellitus Type 2; Negative Diabetes Mellitus Type 1 HEMATOLOGIC: Negative Blood Disorders or Sickle Cell Disease PSYCHO/SOCIAL: Positive Bipolar Disorder and Anxiety OTHER HISTORY: Positive Falls and Cervical Cancer; Negative Down Syndrome, Developmental Delay, Blood Transfusions or Anesthesia Reactions Surgical History SURGICAL: Positive Oral Surgery, Hysterectomy and Tubal Ligation Social History SMOKING STATUS: Never smoker SUBSTANCE USE: does not use ALCOHOL: Never ED Exam Narrative Physical exam: Physical Exam: General: The vital signs were reviewed. 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 Head & Scalp: Normocephalic, atraumatic. Face: Appears normal and is without lesions, deformity. Ears: Left external pinna appears normal. Right external pinna appears normal. Eyes: The sclera is anicteric. No obvious photophobia. The Left and Right Orbit/Lid/Conjunctiva appears normal without swelling, discoloration or injection. Nose: The nose is without deformity, discharge or tenderness; Throat: Appears normal. The mucous membranes are pink and moist without exudates, redness or mass seen. The tongue appears normal. Neck: The neck is supple and no apparent mass or adenopathy. Chest: The chest wall is normal in size and symmetry and has no chest wall tenderness or crepitus. The patient displays normal ventilator effort without retractions, accessory muscle use and has diffuse wheezing in all lung garcía. Cardiovascular: Regular rate and rhythm; No murmurs, rubs, or gallops; Gastrointestinal: The abdomen appears normal. No obvious hernias or mass. The abdomen is soft and benign, non-distended, with no pain, no guarding and no rebound tenderness. Bowel sounds are present and normal sounding. No CVA tenderness. Genitourinary: Back/Spine: No obvious pain or tenderness normal on inspection Extremities/Musculoskeletal/lymphatic: There is multiple ecchymosis on bilateral lower extremities with different ages patient does not recall how some of these happen. The bilateral upper and lower extremities are warm. There is no evidence of arterial insufficiency. There is no evidence of venous insufficiency/edema. The patient spontaneously moves bilateral upper and lower extremities with no pain and no limitation of movement. Skin: The skin is warm, dry and intact. No rashes. No petechia. No purpura. No abnormal bruising. The color is appropriate with no cyanosis. Ecchymosis in bilateral lower extremities of different ages. Mental status/Psychiatric: Mental status is appropriate for age. The patient has no apparent delusions, visual hallucinations, no apparent audible hallucinations. The patient has no apparent suicidal thoughts/ideation and no apparent homicidal thoughts/ideation. Neurological: The patient is awake, alert, interactive, cordial, cooperative and is oriented to name and situation. The patient follows commands and answers historical question with no impairment. There is no visual disturbance apparent. The pupils are equal and reactive bilaterally with normal eye movements and no diplopia The bilateral upper and lower extremities have normal strength, normal range of motion and normal functioning. The gait, station and balance appear to be baseline with no acute change Course Quality Measures none Orders Category Date Time Status EKG (ED ONLY) *Do not use* NOW Care 12/05/24 10:[address] cervical spine wo con Stat Exams 12/05/24 10:[address] head/brain wo con Stat Exams 12/05/24 10:29 Taken EKG (ED Only) Stat Exams 12/05/24 10:29 Draft Alcohol, Blood Medical Stat Lab 12/05/24 13:21 Completed Ammonia Stat Lab 12/05/24 13:21 Completed Blood Culture (Lab) Stat Lab 12/05/24 13:16 Received CBC Stat Lab 12/05/24 10:55 Completed Comprehensive Metabolic Panel Stat Lab 12/05/24 10:55 Completed Drug Screen,Urine Stat Lab 12/05/24 13:17 Completed Lactate (Lactic Acid) Stat Lab 12/05/24 13:21 Completed Troponin I Stat Lab 12/05/24 10:55 Completed Urinalysis Stat Lab 12/05/24 13:17 Completed Venous Blood Gas Stat Lab 12/05/24 13:21 Completed ALBUTEROL RT 0.5ml [Proventil Rt 0.5ml] Med 12/05/24 13:07 Discontinued 10 mg INH X1 ONE MethylPREDNISolone.* [SoluMEDROL Inj] Med 12/05/24 13:07 Discontinued 125 mg IVP X1 ONE Sodium Chloride Rt Indira 0.9% [NS Rt Indira 0.9%] Med 12/05/24 13:07 Active 3 ml INH PRN PRN Vital Signs Vital signs: Vital Signs Temperature 98.5 F 12/05/24 10:19 Pulse Rate 74 12/05/24 10:19 Respiratory Rate 19 12/05/24 10:19 Blood Pressure 147/84 H 12/05/24 10:19 Pulse Oximetry (%) 95 12/05/24 10:19 Oxygen Delivery Method Room Air 12/05/24 10:19 Fall MDM Narrative MDM Narrative:: Patient has been somewhat difficult as she refused some of the workup initially including the CT and then later on agreed. She got a continuous neb for her wheezing and on recheck at 1700 hrs. her lungs are much clearer. Her labs show a white count of 12.5 hemoglobin of 12.5 pH shows a respiratory alkalosis 7.69 and pCO2 of 21 electrolytes are within normal limits. BUN is 22 creatinine of 0.8. Slight prerenal azotemia lactic acid is 1.5 urine came back negative. Drug screen is positive for opioids only of alcohol level is negative CT of the head read by myself reveals normal parenchyma there is no intraparenchymal or intra or cranial bleed. No obvious fracture. Formal read is still pending. C-spine report reveals no acute cervical fractures. At 1732 hrs. the patient is now retching for unclear reasons. Regarding her some Zofran. Her blood pressure also was very high hypertensive urgency and rate of her some hydralazine. Patient has multiple ecchymosis at different ages on her lower extremities of uncertain etiology and that she fell today with ecchymosis to her orbit on the right eye the cause of this is unclear. She presumably needs an MRI to look at her brain closer MRI services not available today which means she will probably sit in the ER overnight. Patient be signed out to the oncoming doctor to get MRI in the morning and to manage her blood pressure and nausea. Care is going to Dr. Baocn who assumes care at 1800 hrs. Patient data External records reviewed:: [facility] previous records (Reviewed last ED visit dated 11/29/24, discharged with the following: Diabetic foot ulcers.) Clinical information provided by:: patient Social determinants that could affect healthcare access:: none Patient has the following chronic illnesses:: CAD s/p PCI, ID, hypertension, diabetes, COPD, peripheral arterial disease, s/p left hand amputation How is presenting disease/condition affected by chronic disease/condition?: uneffected by Evaluation data The following diagnostics were reviewed and interpreted by me:: lab results, radiology exam(s) and EKG tracing(s) (EKG#1: EKG at 1051 hours. Interpreted by me: sinus rhythm, rate 72, no STEMI) Lab and/or radiology exams considered but not ordered:: none Interpretation Summary: See above under MDM narrative. Medications / Prescriptions Medications or Prescriptions considered but not ordered:: none Medication administrations:: Medication Administration History Sodium Chloride (Sodium Chloride Rt Indira 0.9% 3 Ml Nebu) 3 ml INH PRN PRN PRN Reason: SOLN Stop: 01/04/25 13:06 Discontinued Medications Albuterol (Albuterol Rt 2.5 Mg/0.5 Ml Nebu) 10 mg INH X1 ONE Stop: 12/05/24 13:08 Last Admin: 12/05/24 13:55 Dose: Not Given Documented By: JANENE Non-Admin Reason: Patient Refused Methylprednisolone Sodium Succinate (Methylprednisolone Sod Succ 62.5 Mg/Ml 2ml Vial) 125 mg IVP X1 ONE Stop: 12/05/24 13:08 Last Admin: 12/05/24 14:47 Dose: 125 mg Documented By: ANALILIA see above Consultations Consultation(s) initiated? (list below): No Diagnosis Fall Differential Diagnosis: other (fall, head contusion, brain bleed) Most likely diagnosis given after review of the tests above:: See [facility] Admission Indicated Admission indicated?: not indicated Admission Request Was there a request for admission?: No Disposition Plan Disposition Plan: other (specify) (Patient is got hypertensive urgency some nausea unexplained the last hour breathing is better and unexplained multiple falls including a head injury today. An MRI will need to be done and that is only available in the morning so she will be set here until tomorrow and cares to the oncoming doctor) Discharge Plan Prescriptions/Referrals Prescriptions/Med Rec: No Action fexofenadine [Taylor Allergy] 180 mg tablet 180 mg PO Q24H PRN (Reason: allergy) Qty: 30 0RF carvedilol 6.25 mg Tablet 6.25 mg PO BID Rx Instructions: must administer with a meal/food loperamide 2 mg Capsule 2 mg PO Q4H PRN (Reason: Loose Stool) Rx Instructions: administer after each loose stool until symptoms controlled; do not exceed 8 mg per 24 hrs isosorbide mononitrate 30 mg Tablet Extended Release 24 Hr 30 mg PO QAM amlodipine 10 mg Tablet 10 mg PO QDAY omeprazole 20 mg capsule,delayed release(DR/EC) 20 mg PO 1XD ondansetron 4 mg tablet,disintegrating 4 mg PO 4XD PRN (Reason: Nausea And Vomiting) losartan 50 mg tablet 50 mg PO BID acetaminophen [Pain Relief (acetaminophen)] 325 mg tablet 650 mg PO 4XD PRN (Reason: pain) tizanidine [Zanaflex] 4 mg capsule 8 mg PO Q8H PRN (Reason: muscle spasticity) aspirin 81 mg capsule 81 mg PO QDAY 30 Days Qty: 30 0RF levothyroxine 25 mcg Tablet 50 mcg PO ACBR 30 Days Qty: 30 0RF Brilinta 90 mg Tablet 90 mg PO BID 60 Days Qty: 120 0RF atorvastatin 40 mg tablet 40 mg PO HS 30 Days Qty: 30 0RF metoprolol succinate 50 mg capsule,sprinkle,ER 24hr 50 mg PO QDAY 30 Days Qty: 30 0RF metformin 500 mg tablet 500 mg PO BID Qty: 30 0RF cephalexin 500 mg capsule 500 mg PO BID 10 Days Qty: 20 0RF doxycycline hyclate 100 mg capsule 100 mg PO BID 10 Days Qty: 20 0RF albuterol sulfate 90 mcg/actuation HFA aerosol inhaler 2 inh inhalation Q4H PRN (Reason: shortness of breath or wheezing) Qty: 8.5 0RF buspirone 30 mg tablet 30 mg PO BID Qty: 60 2RF Referrals: David Dietz [Primary Care Provider] - In 1 week Problem List Clinical Impression: Falling episodes, Polypharmacy, Acute exacerbation of chronic obstructive pulmonary disease, Hypertensive urgency Patient/Caregiver Discharge Instructions Print Language: Tunisian
[2024-12-05 13:28] LABS: Collection Type, Urine Catheter; RBC,Urine 0 /hpf (0-3); Squamous Epithelial Cell,Urine 0 /hpf (0-5)
[2024-12-05 13:28] LABS: Base Excess, Venous 6 (-3-3); Lactate (Lactic Acid) 1.5 mMol/L (0.4-2.0); O2 Saturation, Venous 89 % (96-97); PCO2, Venous 21 mmHg (36-56); PO2, Venous 43 mmHg (15-58); pH, Venous 7.69 (7.33-7.66)
[2024-12-05 13:52] LABS: Alcohol, Blood Medical < 3.0 mg/dL (0-10.0); Ammonia < 10 uMol/L (11-32)
[2024-12-05 14:02] LABS: Bilirubin,Urine Negative (Negative); Blood,Urine Negative (Negative); Clarity,Urine Clear (Clear/Hazy); Color,Urine Yellow (Lt Yel-Yel); Glucose, Urine Negative (Negative); Ketones,Urine 1+ (Negative); Leukocyte Esterase,Urine Negative (Negative); Nitrite,Urine Negative (Negative); PH,Urine 6.5 (5.0-7.0); Protein,Urine 1+ (Neg - Trace); Specific Gravity,Urine 1.031 (1.001-1.035); WBC,Urine 1 /hpf (0-5)
[2024-12-05] MEDS: MethylPREDNISolone SOD SUCC 62.5 MG/ML 2ML VIAL 125 MG IVP (14:47)
[2024-12-05 14:48] LABS: Amphetamine/Methamp Scrn,U Negative (Negative); Barbiturate Screen,Urine Negative (Negative); Benzodiazepines Screen,Urine Negative (Negative); Benzoylecgonine Screen, Ur Negative (Negative); Fentanyl Screen,Urine Negative (Negative); Opiate Screen,Urine Positive (Negative); THC Screen,Urine Negative (Negative)
--- NOTE | 2024-12-05 16:07 | PC.NURSE ---
CT CALLED AND SPOKE TO [facility] AND MADE AWARE PT AGREED TO HAVE CT SCAN DONE AT THIS TIME. PER [facility]JWINDER, WILL COME GET PT SOON.
[2024-12-05] MEDS: ONDANSETRON INJ 2 MG/ML INJ 2 ML 4 MG IV (17:45)
[2024-12-05] MEDS: hydrALAZINE INJ 20 MG/ML VIAL 10 MG IV (17:46)
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
[2024-12-06 05:44] VITALS: BP 161/112; PULSE 81; RESP 20; TEMP 36.3; O2SAT 97
--- NOTE | 2024-12-06 05:48 | PC.NURSE ---
brief changed. vitals taken. pt refused to take oral temp. was able to obtain axillary temp. pt gagging everytime oral temperature was attempted.
[2024-12-06 06:31] VITALS: BP 163/74; PULSE 78; RESP 18; O2SAT 96
[2024-12-06 06:45] VITALS: BP 163/74; PULSE 66
[2024-12-06] MEDS: cloNIDine HCL 0.1 MG TABLET 0.2 MG PO (06:45)
--- NOTE | 2024-12-06 07:49 | PD.EDADDENDU ---
Emergency Room Addendum <Shameka Summers - Last Filed: 12/06/24 12:34> Addendum Narrative: At 6 AM on 12/06/2024, the care of the patient was transferred from Dr. Lozada, see her notes for complete H&P and ED course. I reviewed all diagnostic test results: My interpretation of the EKG is My review of the head CT is negative for acute hemorrhage, mass effect or midline shift. My review of the cervical spine CT is no acute cervical fracture. Blood tests and urine tests At this point, diagnoses include Treatment here included Significant improvement Jason Mcgee MD 1220: Patient is refusing SNF placement, will send home with home health referral. <Jason Mcgee MD - Last Filed: 12/06/24 13:20> Addendum Narrative: At 6 AM on 12/06/2024, the care of the patient was transferred from Dr. Lozada, see her notes for complete H&P and ED course. I reviewed all diagnostic test results. After evaluations, including by the police department and our physical therapy and our social human services assistants, patient declined further tests and workup and treatments. Including fpc placement or hospitalization or transfer. Discussed potential risks. We couldn't change her mind. 1220: Patient is refusing SNF placement, will send home with home health referral. Discharge Instructions from Dr. Mcgee printed for you: 1. After extensive evaluation, fortunately there is no very serious injury. Such as brain injury or broken neck or internal organ injury. 2. For your facial contusion in the right eye area, apply ice for 20 minutes every 2-3 hours today and tomorrow. Ibuprofen/Tylenol as needed. 3. You are being discharged as you requested. Since you declined fpc rehabilitation or hospitalization or transfer. 4. For your COPD: --No physical exertion for 3 days to help rest the lungs. ?-No smoking or exposure to smoking or pets or dust or cold or humidity. --Zithromax to kill the germs causing the bronchitis. --Prednisone to help decrease the swelling in the airways. --Albuterol 2 puffs every 4-6 hours for 3 days to help keep the airways open. Then as needed for cough or shortness of breath. 5. See a private doctor on 12/07/2024 for recheck and further care. Ask to review all test results and official radiology reports, to make sure you receive all necessary follow-ups and monitoring. Ask for help to prevent future falls and serious injuries. 6. Seek immediate medical care with any concerns.
[2024-12-06 08:07] VITALS: BP 153/81; PULSE 73; RESP 16; TEMP 37.1; O2SAT 95
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
--- NOTE | 2024-12-06 09:34 | PC.NURSE ---
Pt got out of bed stating, I want to go home! I got kids I need to take care off. Pt was re-directed and made aware that physical therapy was here to evaluate her to see if she can safely ambulate by her self. Pt agree to to wait to be evaluated by physical therapy.
--- NOTE | 2024-12-06 10:21 | PC.NURSE ---
[place] [employer] department in room talking to Pt at this time
[2024-12-06 11:32] VITALS: BP 164/65; PULSE 80; RESP 19; TEMP 37; O2SAT 99
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
--- NOTE | 2024-12-06 13:17 | PC.NURSE ---
PT NOT ADMITTED BUT DC AND MEDICALLY CLEARED. PT. DOES NOT WANT TO BE PLACED IN A FACILITY AND WOULD LIKE TO GO HOME. CAREGIVER AND SON CALLED. CAREGIVER ON HER WAY TO PICK HER UP. PT. A/O X 4. CAREGIVER HAD LEFT STATING THAT SON DID NOT WANT HER AROUND PT BC PT WOULD GET ANXIOUS AND WOULD ASK TO GO HOME.
[2024-12-06 14:14] VITALS: BP 168/78; PULSE 77; RESP 16; TEMP 36.8; O2SAT 97
--- NOTE | 2024-12-09 11:19 | PC.CC ---
spoke to Majo with [facility] for start of care date which is today 12/09/24.
== END 2024-12-06 14:15 | disposition home or self-care (01) ==
PROVIDERS: Emergency Medicine; Nurse Practitioner Primary Care; Emergency Provider Emergency Medicine; PCP Family Medicine
DX: S00.11XA Contusion of right eyelid and periocular area, initial encounter (principal); S09.90XA Unspecified injury of head, initial encounter; J44.1 Chronic obstructive pulmonary disease with (acute) exacerbation; M54.2 Cervicalgia; I16.0 Hypertensive urgency; I49.8 Other specified cardiac arrhythmias; I45.89 Other specified conduction disorders; I10 Essential (primary) hypertension; I25.2 Old myocardial infarction; I25.10 Atherosclerotic heart disease of native coronary artery without angina pectoris; R29.6 Repeated falls; Z95.5 Presence of coronary angioplasty implant and graft; W19.XXXA Unspecified fall, initial encounter
CPT/HCPCS: 51701; 36415; 70450; 72125; 80053; 80307; 80320; 81001; 82140; 82803; 83605; 84484; 85025; 87040; 93005; 96374; 96375; 99284; J0360; J2405; J2919; A9270; G0480

== ENCOUNTER 2024-12-19 15:31 | Emergency (ER) | payer OTHER, MEDICAID, SELFPAY ==
[2024-12-19 15:34] VITALS: BP 125/78; PULSE 66; RESP 16; TEMP 36.8; O2SAT 95
[2024-12-19 15:43] VITALS: PULSE 71; RESP 18; O2SAT 98
[2024-12-19 15:49] VITALS: BMI 30.9
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
--- NOTE | 2024-12-19 15:56 | XR_ITS ---
Examination: AP chest single view Technique one AP portable sitting chest single view Exam date and time: December 19, 2024 1658 hrs. Comparison November 29, 2024 Indications: Onset chest pain today. Findings: Normal heart size. Lungs are clear. The osseous structures are intact Left axillary surgical clips Impression: No active disease
--- NOTE | 2024-12-19 15:56 | EKG_ITS ---
[facility] Test Date: 2024-12-19 Pat Name: MONE MOODY Department: Room: - Gender: Female Binder Sorter: : 1960 Requested By: Ana Lozano ([facility]) Vira Order Number: [id number] [place] MD: Ana Lozano ([facility]) Vira Measurements Intervals [place] Rate: 66 P: 74 VA: 168 QRS: 37 QRSD: 113 T: 26 QT: 403 QTc: 425 Interpretive Statements SINUS RHYTHM LEFT VENTRICULAR HYPERTROPHY AND ST-T CHANGE [VOLTAGE CRITERIA PLUS ST/T ABNORMALITY] Compared to ECG 12/05/2024 10:51:21 Left ventricular hypertrophy now present ST (T wave) deviation now present Sinus arrhythmia no longer present Intraventricular conduction delay no longer present T-wave abnormality no longer present /store/S0/[id number]/ecg/[id number].pdf
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
[2024-12-19 16:10] VITALS: PULSE 55
[2024-12-19 16:20] LABS: Basophils # (Auto) 0.1 Thou/mm3 (0.0-0.2); Basophils % (Auto) 1 % (0-2.5); Eosinophils # (Auto) 0.2 Thou/mm3 (0.0-0.5); Eosinophils % (Auto) 2 % (0-10); Hematocrit 37.3 % (36.0-46.0); Hemoglobin 11.8 g/dL (12.0-16.0); Immature Granulocytes % (Auto) 1 % (0-0); Immature Granulocytes Auto 0.09 Thou/mm3 (0.00-0.00); Lymphocytes # (Auto) 1.5 Thou/mm3 (1.0-4.8); Lymphocytes % (Auto) 11 % (10-50); Mean Corpuscular HGB Conc 31.6 g/dl (31.0-37.0); Mean Corpuscular Hemoglobin 29.3 pg (25.0-35.0); Mean Corpuscular Volume 93 fL (80-100); Monocytes # (Auto) 1.2 Thou/mm3 (0.0-0.8); Monocytes % (Auto) 9 % (0-12); Neutrophils # (Auto) 10.2 Thou/mm3 (1.8-7.7); Neutrophils % (Auto) 77 % (37-80); Nucleated Red Blood Cell % 0 /100 WBC (0); Platelet Count 262 Thou/mm3 (140-440); RDW Standard Deviation 53.8 fL (36.4-46.3); Red Blood Count 4.03 Miln/mm3 (4.00-5.20); White Blood Count 13.3 Thou/mm3 (3.6-11.0)
[2024-12-19 16:36] LABS: INR 1.1 (0.9-1.3); Partial Thromboplastin Time 26.2 Seconds (22.0-36.0)
[2024-12-19 16:43] LABS: B-Type Natriuretic Peptide 289 pg/mL (0-100)
[2024-12-19 16:44] LABS: Alanine Aminotransferase 16 U/L (10-49); Albumin, Serum 3.6 gm/dL (3.4-4.8); Albumin/Globulin Ratio 1.6 (1.2-2.2); Alkaline Phosphatase 196 U/L (46-116); Anion Gap 5 (7-16); Aspartate Amino Transferase 25 U/L (0-34); BUN/Creatinine Ratio 25 Ratio (12-20); Bilirubin,Total 0.2 mg/dL (0.3-1.2); Blood Urea Nitrogen 25 mg/dL (9-23); Calcium 8.8 mg/dL (8.3-10.6); Calcium (Corrected) 9.1 mg/dL (8.5-10.1); Carbon Dioxide 24.9 mMol/L (20.0-31.0); Chloride 109 mMol/L (98-107); Globulin 2.3 gm/dL (2.3-3.5); Glucose 104 mg/dL (74-106); Lipase 24 U/L (12-53); Magnesium 1.1 mg/dL (1.6-2.6); Osmolality,Calculated 281 (275-295); Potassium 3.9 mMol/L (3.4-5.1); Sodium 139 mMol/L (136-145); Total Protein 5.9 gm/dL (5.7-8.2); Troponin I < 0.020 ng/mL (0.0-0.045); eGFR > 60 See Note
--- NOTE | 2024-12-19 17:19 | PC.NURSE ---
APS REFERRAL FILL OUT BY [facility] EMT WAS FAXED TO APS OFFICE
[2024-12-19] MEDS: oxyCODONE/APAP 5/325 TABLET 1 TAB PO (17:21)
[2024-12-19] MEDS: SODIUM CHLORIDE 0.9% 500 ML 500 ML 999 ML IV (17:42)
[2024-12-19] MEDS: Magnesium Sulfate 2 GM Ivpb 2 GM/50 ML BAG IV (17:42)
--- NOTE | 2024-12-19 17:54 | PC.NURSE ---
Patient unable to urinate at this time to obtain urine sample, patient does not want cathetar to retrieve urine, therefore, informed patient will attempt to collect urine via bed rivers after fluid bolus, food tray ordered per patients request, ok for patient to eat per Ana CONTACT LENS CUTTER
[2024-12-19 20:10] LABS: Collection Type, Urine Clean Catch
[2024-12-19 20:35] LABS: Bacteria,Urine Rare; Bilirubin,Urine Negative (Negative); Blood,Urine Negative (Negative); Clarity,Urine Clear (Clear/Hazy); Color,Urine Yellow (Lt Yel-Yel); Glucose, Urine Negative (Negative); Ketones,Urine Negative (Negative); Leukocyte Esterase,Urine Positive (Negative); Nitrite,Urine Negative (Negative); Protein,Urine Trace (Neg - Trace); RBC,Urine 4 /hpf (0-3); Specific Gravity,Urine 1.029 (1.001-1.035); Squamous Epithelial Cell,Urine 5 /hpf (0-5); Urobilinogen,Urine Negative mg/dL (0.0-1.0); WBC,Urine 1 /hpf (0-5)
[2024-12-19 21:11] VITALS: BP 130/82; PULSE 72; RESP 18; TEMP 36.8; O2SAT 96
== END 2024-12-19 21:15 | disposition left against medical advice (07) ==
PROVIDERS: Nurse Practitioner Primary Care; Emergency Provider Emergency Medicine; PCP Family Medicine
DX: R07.9 Chest pain, unspecified (principal)
CPT/HCPCS: 36415; 71045; 80053; 81001; 83690; 83735; 83880; 84484; 85025; 85610; 85730; 93005; 99284; J3475; J7040; A9270

== ENCOUNTER 2025-06-12 02:58 | Emergency (ER) | payer OTHER, MEDICAID, SELFPAY ==
[2025-06-12 03:00] VITALS: BMI 27.4
[2025-06-12 03:02] VITALS: BP 121/73; PULSE 73; RESP 19; TEMP 36.6; O2SAT 99
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
[2025-06-12] MEDS: MORPHINE SULF INJ 10 MG/ML VIAL 5 MG IM (05:44)
== END 2025-06-12 05:52 | disposition home or self-care (01) ==
PROVIDERS: Emergency Provider Emergency Medicine; PCP Family Medicine
DX: M79.602 Pain in left arm (principal); M79.605 Pain in left leg; G89.29 Other chronic pain
CPT/HCPCS: 96372; 99282; J2270

== ENCOUNTER 2025-07-17 00:17 | Emergency (ER) | payer OTHER, MEDICAID, SELFPAY ==
[2025-07-17 00:19] VITALS: BP 133/61; PULSE 73; RESP 18; TEMP 37.2; O2SAT 94; BMI 27.4
[2025-07-17 00:35] VITALS: PULSE 96; RESP 17; O2SAT 97
--- NOTE | 2025-07-17 00:42 | PD.EDFALL ---
ED Fall Injury RME/HPI General Chief Complaint: Fall Stated Complaint: FALL Time Seen by Provider: 07/17/25 00:36 Source: patient and EMS Arrival date/time: 07/17/25 00:17 Mode of arrival: EMS Limitations: no limitations RME / HPI RME / HPI Narrative: Dr. Becerra?s Main ED Evaluation: 64-year-old female with significant past medical history of [id number] type 2 diabetes, hypertension, COPD, prior cervical cancer, anxiety, bipolar disorder, peripheral arterial disease s/p left hand amputation, and chronic anticoagulation with Eliquis, was brought to the ED by EMS after a reported fall from bed. Patient states she rolled over while in bed and fell onto a cat tree before striking the floor. She denies loss of consciousness, head strike, headache, nausea, vomiting, or visual changes. EMS reports stable vital signs en route. On arrival, patient complains of acute pain localized to the left forearm, right wrist, bilateral knees, and left foot. She clarifies that she has longstanding chronic pain along the left side of her body, which she differentiates from the acute pain following this event. No chest pain, dyspnea, or dizziness preceding or following the fall is reported. Patient is alert, oriented, and provides history consistently. MD complaint: fall Related Data Home Medications ?Medication ?Instructions ?Recorded ?Confirmed acetaminophen 325 mg tablet (Pain 650 mg PO 4XD PRN pain 11/11/24 11/11/24 Relief (acetaminophen)) amlodipine 10 mg tablet 10 mg PO QDAY 11/11/24 11/11/24 carvedilol 6.25 mg tablet 6.25 mg PO BID 11/11/24 11/11/24 isosorbide mononitrate 30 mg 30 mg PO QAM 11/11/24 11/11/24 tablet,extended release 24 hr loperamide 2 mg capsule 2 mg PO Q4H PRN Loose Stool 11/11/24 11/11/24 losartan 50 mg tablet 50 mg PO BID 11/11/24 11/11/24 omeprazole 20 mg capsule,delayed 20 mg PO 1XD 11/11/24 11/11/24 release ondansetron 4 mg disintegrating 4 mg PO 4XD PRN Nausea And Vomiting 11/11/24 11/11/24 tablet tizanidine 4 mg capsule (Zanaflex) 8 mg PO Q8H PRN muscle spasticity 11/11/24 11/11/24 Previous Rx's ?Medication ?Instructions ?Recorded buspirone 30 mg tablet 30 mg PO BID #60 tabs 05/30/24 fexofenadine 180 mg tablet 180 mg PO Q24H PRN allergy #30 tabs 06/10/24 (Taylor Allergy) metformin 500 mg tablet 500 mg PO BID #30 tabs 11/16/24 albuterol sulfate 90 mcg/actuation 2 inh inhalation Q4H PRN shortness 11/29/24 aerosol inhaler of breath or wheezing #8.5 grams oxycodone 30 mg tablet (Roxicodone) 30 mg PO BID PRN pain #4 tabs 06/12/25 Allergies Allergy/AdvReac Type Severity Reaction Status Date / Time codeine Allergy Severe Rash Verified 06/12/25 03:07 meperidine (From Demerol) Allergy Severe Rash Verified 06/12/25 03:07 Sulfa (Sulfonamide Allergy Severe Rash Verified 06/12/25 03:07 Antibiotics) Review of Systems Review of Systems Systems Reviewed: All systems reviewed, normal except as documented Past Medical History Past Medical History NEUROLOGIC: Negative Neurological Disorders or Seizures CARDIAC: Positive Cardiac Disorders, Myocardial Infarction (patient states november 10, 2024), Coronary Artery Disease, Atherosclerotic Heart Disease and Hypertension; Negative Congestive Heart Failure RESPIRATORY: Positive Chronic Obstructive Pulmonary Disease (COPD) and Asthma GASTROINTESTINAL: Positive Gastrointestinal Disorders and Obesity GENITOURINARY: Negative Genitourinary Disorders or Renal Disease MUSCULOSKELETAL: Positive Musculoskeletal Disorders, Arthritis, Rheumatoid Arthritis, Degenerative Disk Disease and Fibromyalgia ENDOCRINE: Positive Endocrine Disorders and Diabetes Mellitus Type 2; Negative Diabetes Mellitus Type 1 HEMATOLOGIC: Negative Blood Disorders or Sickle Cell Disease PSYCHO/SOCIAL: Positive Bipolar Disorder and Anxiety OTHER HISTORY: Positive Falls and Cervical Cancer; Negative Down Syndrome, Developmental Delay, Blood Transfusions or Anesthesia Reactions Surgical History SURGICAL: Positive Oral Surgery, Hysterectomy and Tubal Ligation Social History SMOKING STATUS: Current every day smoker SUBSTANCE USE: does not use ED Exam Narrative Physical exam: Generally patient is alert elderly appearing female in no obvious distress. Heart regular rate and rhythm, lungs clear to auscultation equal bilaterally, abdomen soft bowel sounds present nondistended nontender and atraumatic extremities show the patient's left hand to be amputated. No swelling to the stump site on the left side and no swelling to the right wrist. Very mild contusion to the left knee without swelling. Right knee is atraumatic and nonswollen. General Limitations: Present no limitations Course Quality Measures none Orders Category Date Time Status XR forearm LT 2V Stat Exams 07/17/25 00:42 Ordered XR knee BI 3V Stat Exams 07/17/25 00:42 Ordered XR wrist comp RT min 3V Stat Exams 07/17/25 00:42 Ordered Vital Signs Vital signs: Vital Signs Temperature 98.9 F 07/17/25 00:19 Pulse Rate 73 07/17/25 00:19 Respiratory Rate 18 07/17/25 00:19 Blood Pressure 133/61 H 07/17/25 00:19 Pulse Oximetry (%) 94 L 07/17/25 00:19 Oxygen Delivery Method Room Air 07/17/25 00:19 Fall MDM Narrative MDM Narrative:: Scribe Attestation: I, Oliver Rodriguez, am scribing for and in the presence of Dr. Becerra. Provider Notation: Although this document has been carefully reviewed, there may still be some phonetic and other typographical errors. These errors are purely grammatical due to imperfections in the software program and should not be construed in any way to compromise the substance of the patient's medical care during this visit. Despite swelling or signs of trauma the patient is complaining of left stump pain and right wrist pain as well as bilateral knee pain. Again there was very little signs of trauma other than a very mild contusion near the left knee. Patient refused x-rays of her right wrist left forearm and bilateral knees. My index of suspicion is quite low that there is an injury. Patient will be discharged in stable condition. Patient data External records reviewed:: [facility] previous records and EMS form Clinical information provided by:: patient and EMS Social determinants that could affect healthcare access:: none Patient has the following chronic illnesses:: See PMH above How is presenting disease/condition affected by chronic disease/condition?: uneffected by Evaluation data The following diagnostics were reviewed and interpreted by me:: lab results and radiology exam(s) Lab and/or radiology exams considered but not ordered:: na Interpretation Summary: I personally reviewed the radiology data and agree with the radiologist's interpretation. Medications / Prescriptions Medications or Prescriptions considered but not ordered:: na Medication administrations:: as above, if any Consultations Consultation(s) initiated? (list below): No Diagnosis Fall Differential Diagnosis: other Most likely diagnosis given after review of the tests above:: See clinical impression below Admission Indicated Admission indicated?: not indicated Admission Request Was there a request for admission?: No Disposition Plan Disposition Plan: Discharge Discharge Attestation Discharge Attestation: The patient and all family members were given an opportunity to ask questions and understood the discharge instructions. Discharge instructions specifically effects, indications for sooner follow up or return to the emergency department, and the expected course of current diagnosis. Patient condition: Stable Discharge Plan Plan Patient Disposition: HOME (Self Care) Prescriptions/Referrals Prescriptions/Med Rec: No Action fexofenadine [Taylor Allergy] 180 mg tablet 180 mg PO Q24H PRN (Reason: allergy) Qty: 30 0RF carvedilol 6.25 mg Tablet 6.25 mg PO BID Rx Instructions: must administer with a meal/food loperamide 2 mg Capsule 2 mg PO Q4H PRN (Reason: Loose Stool) Rx Instructions: administer after each loose stool until symptoms controlled; do not exceed 8 mg per 24 hrs isosorbide mononitrate 30 mg Tablet Extended Release 24 Hr 30 mg PO QAM amlodipine 10 mg Tablet 10 mg PO QDAY omeprazole 20 mg capsule,delayed release(DR/EC) 20 mg PO 1XD ondansetron 4 mg tablet,disintegrating 4 mg PO 4XD PRN (Reason: Nausea And Vomiting) losartan 50 mg tablet 50 mg PO BID acetaminophen [Pain Relief (acetaminophen)] 325 mg tablet 650 mg PO 4XD PRN (Reason: pain) tizanidine [Zanaflex] 4 mg capsule 8 mg PO Q8H PRN (Reason: muscle spasticity) metformin 500 mg tablet 500 mg PO BID Qty: 30 0RF albuterol sulfate 90 mcg/actuation HFA aerosol inhaler 2 inh inhalation Q4H PRN (Reason: shortness of breath or wheezing) Qty: 8.5 0RF oxycodone [Roxicodone] 30 mg tablet 30 mg PO BID MDD 2 PRN (Reason: pain) Qty: 4 0RF buspirone 30 mg tablet 30 mg PO BID Qty: 60 2RF Referrals: David Dietz [Primary Care Provider] - In 1 week Problem List Clinical Impression: Fall, Musculoskeletal pain Patient/Caregiver Discharge Instructions Additional Instructions: On physical exam there is very little likelihood that you fractured anything. You may continue home management. Follow-up with your doctor as needed. Print Language: Chinese Stand Alone Forms: Mila Award Info., Patient Portal Info Letter
[2025-07-17 01:44] VITALS: BP 111/91; PULSE 87; RESP 20; TEMP 36.5; O2SAT 98
== END 2025-07-17 01:46 | disposition home or self-care (01) ==
PROVIDERS: Emergency Provider Emergency Medicine; PCP Family Medicine
DX: M79.632 Pain in left forearm (principal); M25.531 Pain in right wrist; M25.562 Pain in left knee; M25.561 Pain in right knee; M79.672 Pain in left foot; W18.30XA Fall on same level, unspecified, initial encounter; Z91.81 History of falling
CPT/HCPCS: 99283

== ENCOUNTER 2025-07-29 03:25 | Emergency (ER) | payer OTHER, MEDICAID, SELFPAY ==
[2025-07-29 03:26] VITALS: PULSE 65; RESP 14; O2SAT 99; BMI 27.4
--- NOTE | 2025-07-29 03:29 | PD.EDWEAK ---
ED Weakness RME/HPI General Chief complaint: Weakness Stated complaint: WEAKNESS Time Seen by Provider: 07/29/25 03:29 Arrival date/time: 07/29/25 03:25 RME / HPI RME / HPI Narrative: Dr. Becerra?s Main ED Evaluation: 64yo female with a history of DM, HTN, COPD, prior cervical cancer, anxiety, bipolar disorder, peripheral arterial disease s/p left hand amputation, and chronic anticoagulation with Eliquis BIBA from home presents to the ED for a chief complaint of generalized weakness. Patient has had 4 falls since last night due to feeling generally weak. No head strikes or LOC. Patient complains of having pain to her LUE and her inner right thigh (where she has a rash from the brief). Patient reports feeling general malaise. Denies any other associated symptoms. Patient does live at home alone and ambulates with a walker. Related Data Home Medications ?Medication ?Instructions ?Recorded ?Confirmed acetaminophen 325 mg tablet (Pain 650 mg PO 4XD PRN pain 11/11/24 11/11/24 Relief (acetaminophen)) amlodipine 10 mg tablet 10 mg PO QDAY 11/11/24 11/11/24 carvedilol 6.25 mg tablet 6.25 mg PO BID 11/11/24 11/11/24 isosorbide mononitrate 30 mg 30 mg PO QAM 11/11/24 11/11/24 tablet,extended release 24 hr loperamide 2 mg capsule 2 mg PO Q4H PRN Loose Stool 11/11/24 11/11/24 losartan 50 mg tablet 50 mg PO BID 11/11/24 11/11/24 omeprazole 20 mg capsule,delayed 20 mg PO 1XD 11/11/24 11/11/24 release ondansetron 4 mg disintegrating 4 mg PO 4XD PRN Nausea And Vomiting 11/11/24 11/11/24 tablet tizanidine 4 mg capsule (Zanaflex) 8 mg PO Q8H PRN muscle spasticity 11/11/24 11/11/24 Previous Rx's ?Medication ?Instructions ?Recorded buspirone 30 mg tablet 30 mg PO BID #60 tabs 05/30/24 fexofenadine 180 mg tablet 180 mg PO Q24H PRN allergy #30 tabs 06/10/24 (Taylor Allergy) metformin 500 mg tablet 500 mg PO BID #30 tabs 11/16/24 albuterol sulfate 90 mcg/actuation 2 inh inhalation Q4H PRN shortness 11/29/24 aerosol inhaler of breath or wheezing #8.5 grams oxycodone 30 mg tablet (Roxicodone) 30 mg PO BID PRN pain #4 tabs 06/12/25 Allergies Allergy/AdvReac Type Severity Reaction Status Date / Time codeine Allergy Severe Rash Verified 06/12/25 03:07 meperidine (From Demerol) Allergy Severe Rash Verified 06/12/25 03:07 Sulfa (Sulfonamide Allergy Severe Rash Verified 06/12/25 03:07 Antibiotics) Review of Systems Review of Systems Systems Reviewed: All systems reviewed, normal except as documented ED Exam Narrative Physical exam: Generally patient is alert chronically ill-appearing and appearing older than stated age, heart regular rate and rhythm, lungs show rhonchi bilaterally with good air exchange, extremities show an old appearing superficial ulceration to the lateral aspect of her left foot without obvious signs of infection, abdomen soft bowel sounds present nondistended reducible left lower ventral abdominal wall hernia, neurologic exam [place] Coma Scale is 15 Course Course Course Narrative: CXR is ordered for determining the etiology of weakness. Quality Measures none Orders Category Date Time Status Bedside COVID-19 Antigen Test NOW Care 07/29/25 03:30 Active Bedside Influenza A&B Antigen Test NOW Care 07/29/25 03:30 Completed EKG (ED ONLY) *Do not use* NOW Care 07/29/25 03:30 Completed EKG (ED Only) Stat Exams 07/29/25 03:30 Draft XR chest 1V portable Stat Exams 07/29/25 03:30 Taken BNP [B-Type Natriuretic Peptide] Stat Lab 07/29/25 03:50 Completed CBC Stat Lab 07/29/25 03:50 Completed CMP [Comprehensive Metabolic Panel] Stat Lab 07/29/25 03:50 Completed Drug Screen,Urine Stat Lab 07/29/25 03:35 Received Troponin I Stat Lab 07/29/25 03:50 Completed UA [Urinalysis] Stat Lab 07/29/25 03:35 Received ALBUTEROL RT 0.5ml [Proventil Rt 0.5ml] Med 07/29/25 03:34 Discontinued 2.5 mg INH X1 ONE Ipratropium [place] Rt Indira [Atrovent Rt Indira] Med 07/29/25 03:34 Discontinued 0.5 mg INH X1 ONE MethylPREDNISolone. [SoluMEDROL Inj] Med 07/29/25 03:34 Discontinued 125 mg IV X1 ONE Sodium Chloride 0.9% 500 ml [Ns] 500 ml Med 07/29/25 03:30 Discontinued IV 999 mls/hr Sodium Chloride Rt Indira 0.9% [NS Rt Indira 0.9%] Med 07/29/25 03:34 Active 3 ml INH PRN PRN oxyCODONE/APAP 5/325 [Percocet 5/325] Med 07/29/25 04:23 Pending 2 tab PO X1 ONE Vital Signs Vital signs: Vital Signs Temperature 99.1 F 07/29/25 03:33 Pulse Rate 66 07/29/25 03:33 Respiratory Rate 14 07/29/25 03:33 Blood Pressure 145/70 H 07/29/25 03:33 Pulse Oximetry (%) 96 07/29/25 03:33 Oxygen Delivery Method Room Air 07/29/25 03:33 Weakness MDM Narrative MDM Narrative:: Scribe Attestation: 07/29/25 - Maday Gerard am scribing for and in the presence of Dr. Becerra. Chest x-ray shows no definitive infiltrate. EKG is nonischemic. Troponin is not elevated. Renal function is normal. Urinalysis is pending. Patient was asking for something for pain for her left foot. She normally takes oxycodone. She was given 10 mg oxycodone. She grew impatient and did not want to wait for the urinalysis. She signed out AGAINST MEDICAL ADVICE. She is alert and oriented x 4. She understands the risk of signing out AGAINST MEDICAL ADVICE including worsening of condition. She does have the capacity to sign out AGAINST MEDICAL ADVICE. Patient grew angry here in the emergency room because we would not let her go outside and smoke. Patient was given albuterol breathing treatment consisting of 2.5 mg of albuterol and 0.5 mg of Atrovent. Patient refused the IV. Patient data External records reviewed:: [facility] previous records (Per chart review, patient was seen here on 07/17/25 for a fall.) and EMS form Clinical information provided by:: patient and EMS Social determinants that could affect healthcare access:: substance use (tobacco use) Patient has the following chronic illnesses:: HTN, DM, COPD, prior cervical cancer, anxiety, bipolar disorder, peripheral arterial disease s/p left hand amputation, and chronic anticoagulation with Eliquis How is presenting disease/condition affected by chronic disease/condition?: exacerbated by Evaluation data The following diagnostics were reviewed and interpreted by me:: lab results, radiology exam(s) and EKG tracing(s) Lab and/or radiology exams considered but not ordered:: none Interpretation Summary: See MDM. Medications / Prescriptions Medications or Prescriptions considered but not ordered:: none Medication administrations:: Medication Administration History Oxycodone/Acetaminophen (Oxycodone/Apap 5/325 Tablet) 2 tab PO X1 ONE Stop: 07/29/25 04:24 Sodium Chloride (Sodium Chloride Rt Indira 0.9% 3 Ml Nebu) 3 ml INH PRN PRN PRN Reason: SOLN Stop: 08/28/25 03:33 Discontinued Medications Albuterol (Albuterol Rt 2.5 Mg/0.5 Ml Nebu) 2.5 mg INH X1 ONE Stop: 07/29/25 03:35 Last Admin: 07/29/25 03:45 Dose: 2.5 mg Documented By: JASPREET Sodium Chloride (Ns) 500 mls @ 999 mls/hr IV .Q31M ONE Stop: 07/29/25 04:00 Last Admin: 07/29/25 04:04 Dose: Not Given Documented By: ARNIE Non-Admin Reason: Patient Refused Ipratropium [place] (Ipratropium Rt 0.5 Mg/ 2.5 Ml Nebu) 0.5 mg INH X1 ONE Stop: 07/29/25 03:35 Last Admin: 07/29/25 03:45 Dose: 0.5 mg Documented By: JASPREET Methylprednisolone Sodium Succinate (Methylprednisolone Sod 500 Mg/8 Ml Vial) 125 mg IV X1 ONE Stop: 07/29/25 03:35 see above Consultations Consultation(s) initiated? (list below): No Diagnosis Weakness Differential Diagnosis: other (See MDM) Most likely diagnosis given after review of the tests above:: see clinical impression below Admission Indicated Admission indicated?: not indicated Admission Request Was there a request for admission?: No Disposition Plan Disposition Plan: other (specify) (Against Medical Advice) Discharge Plan Plan Patient Disposition: Left Against Medical Advice Prescriptions/Referrals Prescriptions/Med Rec: No Action fexofenadine [Taylor Allergy] 180 mg tablet 180 mg PO Q24H PRN (Reason: allergy) Qty: 30 0RF carvedilol 6.25 mg Tablet 6.25 mg PO BID Rx Instructions: must administer with a meal/food loperamide 2 mg Capsule 2 mg PO Q4H PRN (Reason: Loose Stool) Rx Instructions: administer after each loose stool until symptoms controlled; do not exceed 8 mg per 24 hrs isosorbide mononitrate 30 mg Tablet Extended Release 24 Hr 30 mg PO QAM amlodipine 10 mg Tablet 10 mg PO QDAY omeprazole 20 mg capsule,delayed release(DR/EC) 20 mg PO 1XD ondansetron 4 mg tablet,disintegrating 4 mg PO 4XD PRN (Reason: Nausea And Vomiting) losartan 50 mg tablet 50 mg PO BID acetaminophen [Pain Relief (acetaminophen)] 325 mg tablet 650 mg PO 4XD PRN (Reason: pain) tizanidine [Zanaflex] 4 mg capsule 8 mg PO Q8H PRN (Reason: muscle spasticity) metformin 500 mg tablet 500 mg PO BID Qty: 30 0RF albuterol sulfate 90 mcg/actuation HFA aerosol inhaler 2 inh inhalation Q4H PRN (Reason: shortness of breath or wheezing) Qty: 8.5 0RF oxycodone [Roxicodone] 30 mg tablet 30 mg PO BID MDD 2 PRN (Reason: pain) Qty: 4 0RF buspirone 30 mg tablet 30 mg PO BID Qty: 60 2RF Problem List Clinical Impression: Asthma exacerbation in COPD, Weakness Patient/Caregiver Discharge Instructions Education Materials: ED COPD Flare Additional Instructions: Stop smoking. Keep your follow-up appointments with your physicians. Return as needed. Print Language: Luxembourger
--- NOTE | 2025-07-29 03:30 | XR_ITS ---
Examination: AP chest single view Technique one AP portable upright chest single view Date and time: July 29, 2025 0339 hrs., Comparison December 19, 2024 Indications: Chest pain shortness of breath today. Findings: Subtle bilateral lung opacity Prominent hilar regions Normal heart size Prominent osteopenia Impression: Subtle bilateral lung opacity consistent with pneumonia Enlarged hilar regions, consider CT chest post contrast follow-up to exclude hilar tumor lymphadenopathy, as clinically warranted
--- NOTE | 2025-07-29 03:30 | EKG_ITS ---
[facility] Test Date: 2025-07-29 Pat Name: MONE MOODY Department: Room: - Gender: Female Residence Life Director: : 1960 Requested By: Sonido Jonas Order Number: [id number] Reading MD: Sonido Jonas Measurements Intervals [place] Rate: 62 P: 57 MO: 180 QRS: 46 QRSD: 86 T: 65 QT: 434 QTc: 444 Interpretive Statements SINUS RHYTHM Compared to ECG 12/19/2024 16:00:39 Left ventricular hypertrophy no longer present ST (T wave) deviation no longer present /store/S0/[id number]/ecg/[id number].pdf
[2025-07-29 03:33] VITALS: BP 145/70; PULSE 66; RESP 14; TEMP 37.3; O2SAT 96
[2025-07-29 03:45] VITALS: PULSE 62
[2025-07-29] MEDS: IPRATROPIUM RT 0.5 MG/ 2.5 ML NEBU INH (03:45)
[2025-07-29] MEDS: ALBUTEROL RT 2.5 MG/0.5 ML NEBU INH (03:45)
[2025-07-29 03:52] VITALS: PULSE 64; RESP 14; O2SAT 100
[2025-07-29 04:05] LABS: Basophils # (Auto) 0.1 Thou/mm3 (0.0-0.2); Basophils % (Auto) 0 % (0-2.5); Eosinophils # (Auto) 0.3 Thou/mm3 (0.0-0.5); Eosinophils % (Auto) 3 % (0-10); Hematocrit 34.4 % (36.0-46.0); Hemoglobin 10.6 g/dL (12.0-16.0); Immature Granulocytes Auto 0.04 Thou/mm3 (0.00-0.00); Lymphocytes # (Auto) 2.7 Thou/mm3 (1.0-4.8); Lymphocytes % (Auto) 25 % (10-50); Mean Corpuscular HGB Conc 30.8 g/dl (31.0-37.0); Mean Corpuscular Hemoglobin 27.7 pg (25.0-35.0); Mean Corpuscular Volume 90 fL (80-100); Monocytes # (Auto) 0.9 Thou/mm3 (0.0-0.8); Monocytes % (Auto) 8 % (0-12); Neutrophils # (Auto) 7.1 Thou/mm3 (1.8-7.7); Neutrophils % (Auto) 64 % (37-80); Nucleated Red Blood Cell # 0.00 Thou/mm3 (0.00-0.00); Nucleated Red Blood Cell % 0 /100 WBC (0); Platelet Count 339 Thou/mm3 (140-440); RDW Standard Deviation 54.1 fL (36.4-46.3); Red Blood Count 3.82 Miln/mm3 (4.00-5.20); White Blood Count 11.2 Thou/mm3 (3.6-11.0)
[2025-07-29 04:17] LABS: Alanine Aminotransferase 8 U/L (10-49); Albumin, Serum 4.1 gm/dL (3.4-4.8); Albumin/Globulin Ratio 1.5 (1.2-2.2); Alkaline Phosphatase 118 U/L (46-116); Anion Gap 9 (7-16); Aspartate Amino Transferase 11 U/L (0-34); BUN/Creatinine Ratio 9 Ratio (12-20); Bilirubin,Total 0.3 mg/dL (0.3-1.2); Blood Urea Nitrogen 9 mg/dL (9-23); Calcium 9.8 mg/dL (8.3-10.6); Calcium (Corrected) 9.8 mg/dL (8.5-10.1); Carbon Dioxide 27.5 mMol/L (20.0-31.0); Chloride 105 mMol/L (98-107); Creatinine (Component) 1.0 mg/dL (0.6-1.3); Estimated Creatinine Clearance 54.8 mL/min (>60); Globulin 2.8 gm/dL (2.3-3.5); Glucose 128 mg/dL (74-106); Osmolality,Calculated 281 (275-295); Potassium 4.0 mMol/L (3.4-5.1); Sodium 141 mMol/L (136-145); Total Protein 6.9 gm/dL (5.7-8.2); Troponin I < 0.020 ng/mL (0.0-0.045); eGFR > 60 See Note
[2025-07-29 04:27] LABS: B-Type Natriuretic Peptide 197 pg/mL (0-100)
[2025-07-29 04:29] LABS: Collection Type, Urine Voided
[2025-07-29 04:43] LABS: Bacteria,Urine Rare; Bilirubin,Urine Negative (Negative); Blood,Urine Negative (Negative); Clarity,Urine Clear (Clear/Hazy); Color,Urine Yellow (Lt Yel-Yel); Glucose, Urine Negative (Negative); Hyaline Casts,Urine < 1 /hpf (0-1); Hyphae Yeast Present; Ketones,Urine Negative (Negative); Leukocyte Esterase,Urine Negative (Negative); Nitrite,Urine Negative (Negative); PH,Urine 6.0 (5.0-7.0); Protein,Urine Negative (Neg - Trace); RBC,Urine < 1 /hpf (0-3); Specific Gravity,Urine 1.021 (1.001-1.035); Squamous Epithelial Cell,Urine 1 /hpf (0-5); Urobilinogen,Urine Negative mg/dL (0.0-1.0); WBC,Urine < 1 /hpf (0-5)
[2025-07-29 04:51] LABS: Amphetamine/Methamp Scrn,U Negative (Negative); Barbiturate Screen,Urine Negative (Negative); Benzodiazepines Screen,Urine Negative (Negative); Benzoylecgonine Screen, Ur Negative (Negative); Fentanyl Screen,Urine Negative (Negative); Opiate Screen,Urine Positive (Negative); THC Screen,Urine Negative (Negative)
== END 2025-07-29 04:52 | disposition left against medical advice (07) ==
LOC: SERX 04:57
PROVIDERS: Emergency Provider Emergency Medicine
DX: J45.901 Unspecified asthma with (acute) exacerbation (principal); J44.89 Other specified chronic obstructive pulmonary disease; R53.1 Weakness; I10 Essential (primary) hypertension; Z72.0 Tobacco use; Z60.2 Problems related to living alone; Z53.29 Procedure and treatment not carried out because of patient's decision for other reasons
CPT/HCPCS: 36415; 71045; 80053; 80307; 81001; 83880; 84484; 85025; 87400; 87811; 93005; 94640; 99284; A9270

== ENCOUNTER 2025-08-12 12:17 | Emergency (ER) | payer OTHER, MEDICAID, SELFPAY ==
--- NOTE | 2025-08-12 12:23 | XR_ITS ---
Examination: CT brain head without contrast. 2-D sagittal coronal reconstructions Date and time of exam:August 12, 2025, 1322 hours, comparison December 05, 2024 INDICATIONS: Ground-level fall today with into the head, head pain CTDI: vol (mGy):49.2 DLP: (mGycm):991 Technique: Multiple CT axial sections of the brain have been obtained, 5 mm slice thickness. Contrast has not been administered. 2-D sagittal, coronal reconstructions have been obtained Low dose protocols were performed. One or more of the following dose reduction techniques were used; automated exposure control, adjustment of the mA and/or KV according to patient size, use of iterative reconstruction technique. Findings: No significant ventricular enlargement. Intra-axial or extra-axial hemorrhage density is not seen. No mass effect or midline shift Basal cisterns are not remarkable. Fourth ventricle is midline. Cranial vault intact. Impression: Negative for acute hemorrhage, mass effect or midline shift
--- NOTE | 2025-08-12 12:23 | XR_ITS ---
Examination: Tibia-Fibula, left , 2 views Technique: Tibia-fibula AP lateral 2 views Date and time of exam: August 12, 2025, 1333 hours INDICATIONS: Patient fell today with into the lower leg, lower leg pain. FINDINGS: Prominent osteopenia. No fracture or dislocation No foreign body IMPRESSION: No fracture or dislocation
--- NOTE | 2025-08-12 12:23 | XR_ITS ---
Examination: CT cervical spine without contrast 2-D sagittal reconstructions 2-D coronal reconstructions 3-D reconstructions. Exam date and time:August 12, 2025, 1322 hours COMPARISON: December 05, 2024 INDICATIONS: Ground-level fall today with injury to the neck, neck pain CTDI:vol (mGy) 14.1 DLP: (mGycm) 320 Technique: Multiple 2 mm axial sections of the cervical spine have been obtained. The coronal and sagittal reconstructions have been obtained. 3-D reconstructions have been obtained. Low dose protocols were performed. One or more of the following dose reduction techniques were used; automated exposure control, adjustment of the mA and/or KV according to patient size, use of iterative reconstruction technique. Findings: Axial sections demonstrate intact base of the skull. C1 exhibit satisfactory relationship to the odontoid. No acute cervical vertebral body fracture seen. Alignment posterior spinous processes satisfactory. Impression: No acute cervical fracture.
--- NOTE | 2025-08-12 12:23 | XR_ITS ---
Examination: Left knee 2 views Technique one AP lateral left knee 2 views Date and time: August 12, 2025, 1339 hours INDICATIONS: Patient fell today with injury to the knee, knee pain. FINDINGS: Severe osteopenia. Advanced tricompartment osteoarthritis. No fracture. Prominent soft tissue swelling prepatellar Small knee effusion IMPRESSION: No fracture Consider ultrasound soft tissue prepatellar follow-up
--- NOTE | 2025-08-12 12:26 | EDNOTE_ITS ---
ED Fall Injury RME/HPI General Chief Complaint: Fall Stated Complaint: FALL Time Seen by Provider: 08/12/25 12:23 Arrival date/time: 08/12/25 12:17 RME / HPI RME / HPI Narrative: 65-year-old female patient currently on hospice, due to cardiac problem, currently taking Eliquis, came in for evaluation by EMS for evaluation after a fall. Incident happened about 1 to 2 hours ago patient was walking and sustained a ground-level fall resulting into swelling to the left knee, lower leg, severity moderate. Patient told me that she did not lost her consciousness she denies any chest pain denies any back pain. Denies any other injury. No medication was given by EMS. Related Data Home Medications ?Medication ?Instructions ?Recorded ?Confirmed acetaminophen 325 mg tablet (Pain 650 mg PO 4XD PRN pa in 11/11/24 11/11/24 Relief (acetaminophen)) amlodipine 10 mg tablet 10 mg PO QDAY 11/11/2411/11 carvedilol 6.25 mg tablet 6.25 mg PO BID 11/11/2401/04 isosorbide mononitrate 30 mg 30 mg PO QAM 11/11/2401/04 tablet,extended release 24 hr loperamide 2 mg capsule 2 mg PO Q4H PRN Loose Stool 11/11/24 11/11/24 losartan 50 mg tablet 50 mg PO BID 11/11/24 omeprazole 20 mg capsule,delayed 20 mg PO 1XD 11/11/24 11/11/24 release ondansetron 4 mg disintegrating 4 mg PO 4XD PRN Nausea And Vomiting 11/11/2401/04 tablet tizanidine 4 mg capsule (Zanaflex) 8 mg PO Q8H PRN mus poonam spasticity 11/11/24 11/11/24 Previous Rx's ?Medication ?Instructions ?Recorded buspirone 30 mg tablet 30 mg PO BID #60 tabs fexofenadine 180 mg tablet 180 mg PO Q24H PRN allergy #30 tabs 06/10/24 (Taylor Allergy) metformin 500 mg tablet 500 mg PO BID #30 tabs 11/16 albuterol sulfate 90 mcg/actuation 2 inh inhalation Q4 H PRN shortness 11/29/24 aerosol inhaler of breath or wheezing #8.5 g dominic oxycodone 30 mg tablet (Roxicodone) 30 mg PO BID PRN p ain #4 tabs 06/12/25 Allergies Allergy/AdvReac Type Severity Reaction Status Date / Time codeine Allergy Severe Rash Verified 06/12/25 03:07 meperidine (From Demerol) Allergy Severe Rash Verified 06/12/25 03:07 Sulfa (Sulfonamide Allergy Severe Rash Verified 06/12/25 03:07 Antibiotics) Review of Systems Review of Systems Narrative Review of Systems: Review of system reviewed and within normal limits except mentioned in HPI ED Exam Narrative Physical exam: VITAL SIGNS: Reviewed. GENERAL APPEARANCE: Alert and interactive, follows commands, no acute distress, HEAD AND FACE: Non-traumatic. ENT: PERRL, pink conjunctivitis, eyelid no trauma, Mucous membrane moist. NECK: Supple, nontender, no nuchal rigidity. CHEST: No tenderness, no crepitus, no paradoxical movement, no retractions. LUNGS: Clear, well ventilated, symmetric, no rales, no wheezing, no ronchi, no stridor, good breath sounds bilaterally. HEART: Regular rate, regular rhythm, no murmur, no gallops. ABDOMEN: Soft, positive bowel sounds, nondistended, no guarding, nontender, no rebound, no masses, RECTAL: Deferred. GENITAL: Deferred. NEUROLOGICAL: Gross motor function intact sensory function intact, Appropriate for age. MUSCULOSKELETAL: low back nontender, full range of motion. EXTREMITIES: Left lower leg bruising, swelling, left anterior knee swelling and bruising with limitation range of motion. Distal neurovascular status intact SKIN: Color pink, dry, no rash, no lacerations, no abrasions, no contusions. LYMPHATICS: Deferred. Course Quality Measures none Orders Category Date Time Status CT cervical spine wo con Stat Exams 08/12/25 12:[address] head/brain wo con Stat Exams 08/12/25 12:23 Completed XR knee limited LT 2V Stat Exams 08/12/25 12:23 Completed XR pelvis 1-2V Stat Exams 08/12/25 12:26 Completed XR tibia fibula LT 2V Stat Exams 08/12/25 12:23 Completed oxyCODONE/APAP 5/325 [Percocet 5/325] Med 08/12/25 12:25 Discontinued 1 tab PO X1 ONE Vital Signs Vital signs: Vital Signs Temperature 98.4 F 08/12/25 12:38 Pulse Rate 65 08/12/25 12:38 Respiratory Rate 18 08/12/25 12:38 Blood Pressure 105/67 08/12/25 12:38 Pulse Oximetry (%) 95 08/12/25 12:38 Oxygen Delivery Method Room Air 08/12/25 12:38 Fall MDM Narrative MDM Narrative:: 65-year-old female patient currently on hospice, due to cardiac problem, currently taking Eliquis, came in for evaluation by EMS for evaluation after a fall. Incident happened about 1 to 2 hours ago patient was walking and sustained a ground-level fall resulting into swelling to the left knee, lower leg, severity moderate. Patient told me that she did not lost her consciousness she denies any chest pain denies any back pain. Denies any other injury. No medication was given by EMS. CT scan of the head came back unremarkable CT scan of the neck came back unremarkable x-ray of the pelvis came back unremarkable x-ray of the knee came back unremarkable x-ray of the tibia-fibula came back unremarkable. Patient signed AMA Patient data External records reviewed:: None Clinical information provided by:: patient Social determinants that could affect healthcare access:: none Patient has the following chronic illnesses:: CAD, How is presenting disease/condition affected by chronic disease/condition?: uneffected by Evaluation data The following diagnostics were reviewed and interpreted by me:: radiology exam(s) Lab and/or radiology exams considered but not ordered:: None Interpretation Summary: See results [facility] Medications / Prescriptions Medications or Prescriptions considered but not ordered:: None Medication administrations:: Medication Administration History Discontinued Medications Oxycodone/Acetaminophen (Oxycodone/Apap 5/325 Tablet) 1 tab PO X1 ONE Stop: 08/12/25 12:26 Last Admin: 08/12/25 13:09 Dose: 1 tab Documented By: ONELIA Percocet Consultations Consultation(s) initiated? (list below): No Diagnosis Fall Differential Diagnosis: concussion with loss of consciousness (Fall, knee contusion leg contusion) Most likely diagnosis given after review of the tests above:: Fall, knee contusion leg contusion Admission Indicated Admission indicated?: not indicated (Patient AMA) Admission Request Was there a request for admission?: No Disposition Plan Disposition Plan: other (specify) (AMA) Discharge Plan Plan Patient Disposition: Left Against Medical Advice Prescriptions/Referrals Prescriptions/Med Rec: No Action fexofenadine [Taylor Allergy] 180 mg tablet 180 mg PO Q24H PRN (Reason: allergy) Qty: 30 0RF carvedilol 6.25 mg Tablet 6.25 mg PO BID Rx Instructions: must administer with a meal/food loperamide 2 mg Capsule 2 mg PO Q4H PRN (Reason: Loose Stool) Rx Instructions: administer after each loose stool until symptoms controlled; do not exceed 8 mg per 24 hrs isosorbide mononitrate 30 mg Tablet Extended Release 24 Hr 30 mg PO QAM amlodipine 10 mg Tablet 10 mg PO QDAY omeprazole 20 mg capsule,delayed release(DR/EC) 20 mg PO 1XD ondansetron 4 mg tablet,disintegrating 4 mg PO 4XD PRN (Reason: Nausea And Vomiting) losartan 50 mg tablet 50 mg PO BID acetaminophen [Pain Relief (acetaminophen)] 325 mg tablet 650 mg PO 4XD PRN (Reason: pain) tizanidine [Zanaflex] 4 mg capsule 8 mg PO Q8H PRN (Reason: muscle spasticity) metformin 500 mg tablet 500 mg PO BID Qty: 30 0RF albuterol sulfate 90 mcg/actuation HFA aerosol inhaler 2 inh inhalation Q4H PRN (Reason: shortness of breath or wheezing) Qty: 8.5 0RF oxycodone [Roxicodone] 30 mg tablet 30 mg PO BID MDD 2 PRN (Reason: pain) Qty: 4 0RF buspirone 30 mg tablet 30 mg PO BID Qty: 60 2RF Referrals: David Dietz [Primary Care Provider] - In 1 week Problem List Clinical Impression: Fall, Contusion of knee, Contusion of leg Patient/Caregiver Discharge Instructions Print Language: [place]
--- NOTE | 2025-08-12 12:26 | XR_ITS ---
Examination: AP pelvis single view Technique one AP portable supine pelvis single view Date and time: August 12, 2025, 1331 hours INDICATIONS: Patient fell today with injury to the pelvis, pelvic pain. FINDINGS: No right or left hip fracture or hip dislocations Bones the pelvis intact IMPRESSION: No acute hip or pelvic fracture
[2025-08-12 12:38] VITALS: BP 105/67; PULSE 65; RESP 18; TEMP 36.9; O2SAT 95
[2025-08-12 12:50] VITALS: PULSE 74; RESP 18; O2SAT 96
[2025-08-12 12:55] VITALS: BMI 26.3
--- NOTE | 2025-08-12 13:01 | PC.NURSE ---
Patient to er via ems s/p fall, no loc, denies hitting her head, c/o left arm and left knee pain. Chart up to be seen by er provider. Patient refused to be placed in gown, states no, i'm always cold here, I dont' need to get in a gown will notify provider, call light within reach.
--- NOTE | 2025-08-12 14:00 | PC.NURSE ---
Patient requesting that her care provider be able to take her outside, informed her that all xrays have not been resulted and that she should wait until we know nothing is broken, per Patient states i wanna leave since you won't let me go outside, you can call me with the results PRISCA Calle made aware. Patient signed out AMA, informed her of consequences, patient verbalizes understanding, AMA placed on Chart.
== END 2025-08-12 14:00 | disposition left against medical advice (07) ==
PROVIDERS: Emergency Provider Family Medicine; PCP Family Medicine
DX: Z53.21 Procedure and treatment not carried out due to patient leaving prior to being seen by health care provider (principal)
CPT/HCPCS: 70450; 72125; 72170; 73560; 73590; 99284; A9270

== ENCOUNTER 2025-08-17 10:13 | Emergency (ER) | payer OTHER, MEDICAID, SELFPAY ==
[2025-08-17 10:49] VITALS: PULSE 66; RESP 16; O2SAT 98; BMI 26.2
--- NOTE | 2025-08-17 10:56 | PD.EDFALL ---
ED Fall Injury RME/HPI General Chief Complaint: Fall Stated Complaint: FALL Time Seen by Provider: 08/17/25 10:53 Arrival date/time: 08/17/25 10:13 RME / HPI RME / HPI Narrative: 65 year old female with history of CAD s/p PCI, NC, hypertension, diabetes, COPD, s/p left hand amputation presents to the ED BIBA from home for evaluation following a fall. Patient states she does not recall the fall and woke up on the floor. Unknown how long she had laid on the floor. LOC unknown. In the ED, she complains of pain to the left side of face and ear, rating 10/10 in severity. No other injuries or complaints reported. Related Data Home Medications ?Medication ?Instructions ?Recorded ?Confirmed acetaminophen 325 mg tablet (Pain 650 mg PO 4XD PRN pain 11/11/24 11/11/24 Relief (acetaminophen)) amlodipine 10 mg tablet 10 mg PO QDAY 11/11/24 11/11/24 carvedilol 6.25 mg tablet 6.25 mg PO BID 11/11/24 11/11/24 isosorbide mononitrate 30 mg 30 mg PO QAM 11/11/24 11/11/24 tablet,extended release 24 hr loperamide 2 mg capsule 2 mg PO Q4H PRN Loose Stool 11/11/24 11/11/24 losartan 50 mg tablet 50 mg PO BID 11/11/24 11/11/24 omeprazole 20 mg capsule,delayed 20 mg PO 1XD 11/11/24 11/11/24 release ondansetron 4 mg disintegrating 4 mg PO 4XD PRN Nausea And Vomiting 11/11/24 11/11/24 tablet tizanidine 4 mg capsule (Zanaflex) 8 mg PO Q8H PRN muscle spasticity 11/11/24 11/11/24 Previous Rx's ?Medication ?Instructions ?Recorded buspirone 30 mg tablet 30 mg PO BID #60 tabs 05/30/24 fexofenadine 180 mg tablet 180 mg PO Q24H PRN allergy #30 tabs 06/10/24 (Taylor Allergy) metformin 500 mg tablet 500 mg PO BID #30 tabs 11/16/24 albuterol sulfate 90 mcg/actuation 2 inh inhalation Q4H PRN shortness 11/29/24 aerosol inhaler of breath or wheezing #8.5 grams oxycodone 30 mg tablet (Roxicodone) 30 mg PO BID PRN pain #4 tabs 06/12/25 Allergies Allergy/AdvReac Type Severity Reaction Status Date / Time codeine Allergy Severe Rash Verified 08/17/25 10:59 meperidine (From Demerol) Allergy Severe Rash Verified 08/17/25 10:59 Sulfa (Sulfonamide Allergy Severe Rash Verified 08/17/25 10:59 Antibiotics) Review of Systems Review of Systems Systems Reviewed: All systems reviewed, normal except as documented Past Medical History Past Medical History CARDIAC: Positive Cardiac Disorders, Myocardial Infarction, Coronary Artery Disease, Atherosclerotic Heart Disease and Hypertension RESPIRATORY: Positive Chronic Obstructive Pulmonary Disease (COPD) and Asthma GASTROINTESTINAL: Positive Gastrointestinal Disorders and Obesity MUSCULOSKELETAL: Positive Musculoskeletal Disorders, Arthritis, Rheumatoid Arthritis, Degenerative Disk Disease and Fibromyalgia ENDOCRINE: Positive Endocrine Disorders and Diabetes Mellitus Type 2 PSYCHO/SOCIAL: Positive Bipolar Disorder and Anxiety OTHER HISTORY: Positive Falls and Cervical Cancer Surgical History SURGICAL: Positive Cardiac Surgery (QUADRUPLE BYPASS), Coronary Stent, Oral Surgery, Hysterectomy and Tubal Ligation Social History SMOKING STATUS: Light (< 1 pack/day) SUBSTANCE USE: does not use ED Exam Narrative Physical exam: GENERAL APPEARANCE: alert and oriented x 4, well-developed, well-nourished, no acute distress HEENT: Normocephalic, 2mm laceration to left ear with surrounding dried blood; pupils equal, round, reactive to light; EOMI; mucous membranes pink, moist; oropharynx clear NECK: Supple LUNGS: CTABL; no wheezes, no rales, no rhonchi HEART: Regular rate, regular rhythm; normal S1, S2; no murmurs ABDOMEN: non distended; normal BS; soft, no tenderness, no guarding, no rebound; no masses, no organomegaly, no hernia EXTREMITIES: Left hand amputation; ecchymosis to left knee; no edema NEUROLOGIC: awake; alert and oriented x4; cranial nerves II-XII grossly intact; no focal sensory or motor deficits PSYCHIATRIC: appropriate mood and affect SKIN: warm, dry, normal color; no rashes Course Course Course Narrative: 1215p: Assessed patients ear and noted to have 2 mm laceration to the left ear. Patient additionally states she was evaluated here 4 days following a ground level fall and did not receive the results of images performed. States the pain to the knee has persisted, will repeat XR. 1355p: Notified by XR tech the patient has refused images. 1400p: Patient has signed out AGAINST MEDICAL ADVICE. I discussed a great length that without further evaluation and monitoring there may be unforeseen circumstances and deterioration causing permanent bodily harm or as a result of their choice. The patient is alert, oriented and competent at this time. The patient states that they are aware of the serious risks as explained, but they continue to wish to leave against medical advice. Quality Measures none Orders Category Date Time Status XR forearm LT 2V Stat Exams 08/17/25 12:20 Ordered XR knee comp RT 4V Stat Exams 08/17/25 12:20 Ordered Vital Signs Vital signs: Vital Signs Temperature 97.6 F 08/17/25 11:14 Pulse Rate 61 08/17/25 11:14 Respiratory Rate 15 08/17/25 11:14 Blood Pressure 117/59 L 08/17/25 11:14 Pulse Oximetry (%) 97 08/17/25 11:14 Oxygen Delivery Method Room Air 08/17/25 11:14 Pulse ox is 97% on room air which is adequate. Fall MDM Narrative MDM Narrative:: Shameka Gerard am scribing for and in the presence of Dr. Lozada. Patient data External records reviewed:: [facility] previous records and EMS form Clinical information provided by:: patient and EMS Social determinants that could affect healthcare access:: none Patient has the following chronic illnesses:: CAD s/p PCI, NC, hypertension, diabetes, COPD, s/p left hand amputation How is presenting disease/condition affected by chronic disease/condition?: exacerbated by Evaluation data The following diagnostics were reviewed and interpreted by me:: other (specify) (None ) Lab and/or radiology exams considered but not ordered:: XR of the right knee and XR of the left forearm were ordered however patient refused. Interpretation Summary: N/A Medications / Prescriptions Medications or Prescriptions considered but not ordered:: None Medication administrations:: None Consultations Consultation(s) initiated? (list below): No Diagnosis Fall Differential Diagnosis: syncope and other (laceration, abrasion, contusion ) Most likely diagnosis given after review of the tests above:: Fall Ear laceration Admission Indicated Admission indicated?: not indicated Explain why admission is indicated or not indicated:: Patient signed out AMA Admission Request Was there a request for admission?: No Disposition Plan Disposition Plan: other (specify) (Patient signed out against medical advise ) Discharge Plan Plan Patient Disposition: Left Against Medical Advice Prescriptions/Referrals Prescriptions/Med Rec: No Action fexofenadine [Taylor Allergy] 180 mg tablet 180 mg PO Q24H PRN (Reason: allergy) Qty: 30 0RF carvedilol 6.25 mg Tablet 6.25 mg PO BID Rx Instructions: must administer with a meal/food loperamide 2 mg Capsule 2 mg PO Q4H PRN (Reason: Loose Stool) Rx Instructions: administer after each loose stool until symptoms controlled; do not exceed 8 mg per 24 hrs isosorbide mononitrate 30 mg Tablet Extended Release 24 Hr 30 mg PO QAM amlodipine 10 mg Tablet 10 mg PO QDAY omeprazole 20 mg capsule,delayed release(DR/EC) 20 mg PO 1XD ondansetron 4 mg tablet,disintegrating 4 mg PO 4XD PRN (Reason: Nausea And Vomiting) losartan 50 mg tablet 50 mg PO BID acetaminophen [Pain Relief (acetaminophen)] 325 mg tablet 650 mg PO 4XD PRN (Reason: pain) tizanidine [Zanaflex] 4 mg capsule 8 mg PO Q8H PRN (Reason: muscle spasticity) metformin 500 mg tablet 500 mg PO BID Qty: 30 0RF albuterol sulfate 90 mcg/actuation HFA aerosol inhaler 2 inh inhalation Q4H PRN (Reason: shortness of breath or wheezing) Qty: 8.5 0RF oxycodone [Roxicodone] 30 mg tablet 30 mg PO BID MDD 2 PRN (Reason: pain) Qty: 4 0RF buspirone 30 mg tablet 30 mg PO BID Qty: 60 2RF Referrals: No Primary/Family,Physician [Primary Care Provider] - In 1 week Problem List Clinical Impression: Fall, Laceration of ear Patient/Caregiver Discharge Instructions Print Language: Salvadorean
[2025-08-17 11:14] VITALS: BP 117/59; PULSE 61; RESP 15; TEMP 36.4; O2SAT 97
--- NOTE | 2025-08-17 11:56 | PC.LAC ---
L FACE CLEANED AT THIS TIME FROM DRIED BLOOD. NO LAC NOTED TO FACE. SMALL ABRASION NOTED ON PT'S L EAR.
[2025-08-17 13:00] VITALS: BP 134/59; PULSE 63; RESP 15; TEMP 36.7; O2SAT 97
--- NOTE | 2025-08-17 13:57 | PC.NURSE ---
@1300 - THIS RN AT BEDSIDE; PT REQUESTING TO LEAVE AMA. PER PT, I'VE BEEN HERE HALF A DAY. I'M HUNGRY. I WANNA GO HOME AND SLEEP. PT EDUCATED ABOUT RISKS OF LEAVING AMA. PT A&OX4, GCS 15. PT ASKED IF PT CAN WAIT FOR RN TO GRAB AMA FORM FOR PT TO SIGN. FOR PT, PLEASE HURRY. @6480 - PT ASKED AGAIN IF PT CERTAIN ABOUT WANTING TO LEAVE AMA FORM. PER PT, YES. PT SIGNED AMA FORM AT THIS TIME.
--- NOTE | 2025-08-17 14:02 | PC.NURSE ---
PT'S CAREGIVER, ROSEMARY, TO CLAIM BENEFIT SPECIALIST PT AT THIS TIME FROM ED ENTRANCE.
== END 2025-08-17 14:02 | disposition left against medical advice (07) ==
LOC: SERX 11:35
PROVIDERS: Emergency Provider Emergency Medicine
DX: S01.312A Laceration without foreign body of left ear, initial encounter (principal); W18.30XA Fall on same level, unspecified, initial encounter; Z53.29 Procedure and treatment not carried out because of patient's decision for other reasons
CPT/HCPCS: 99281

== ENCOUNTER 2025-10-24 07:25 | Inpatient (IN) | payer MEDICARE, MEDICAID, SELFPAY ==
[2025-10-24] VITALS (10 sets, daily range): BP systolic 139–178; BP diastolic 68–86; PULSE 80–115; RESP 15–20; TEMP 36.8–37.8; O2SAT 92–100; BMI 25.8; BMI 25.1
--- NOTE | 2025-10-24 07:52 | EKG_ITS ---
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
--- NOTE | 2025-10-24 07:52 | XR_ITS ---
EXAMINATION: AP chest single view TECHNIQUE: AP portable upright chest single view Date and time: October 24, 2025, 0920 hours, comparison July 29, 2025 INDICATIONS: Chest pain today. FINDINGS: Fairly diffuse bilateral pneumonia Normal heart size Severe osteopenia Surgical clips left axilla IMPRESSION: Fairly diffuse bilateral pneumonia
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
[2025-10-24 09:12] LABS: Basophils # (Auto) 0.1 Thou/mm3 (0.0-0.2); Basophils % (Auto) 0 % (0-2.5); Eosinophils # (Auto) 0.1 Thou/mm3 (0.0-0.5); Eosinophils % (Auto) 1 % (0-10); Hematocrit 32.3 % (36.0-46.0); Hemoglobin 9.9 g/dL (12.0-16.0); Immature Granulocytes Auto 0.04 Thou/mm3 (0.00-0.00); Lymphocytes # (Auto) 1.0 Thou/mm3 (1.0-4.8); Lymphocytes % (Auto) 9 % (10-50); Mean Corpuscular HGB Conc 30.7 g/dl (31.0-37.0); Mean Corpuscular Hemoglobin 26.4 pg (25.0-35.0); Mean Corpuscular Volume 86 fL (80-100); Monocytes # (Auto) 0.6 Thou/mm3 (0.0-0.8); Monocytes % (Auto) 5 % (0-12); Neutrophils # (Auto) 9.7 Thou/mm3 (1.8-7.7); Neutrophils % (Auto) 84 % (37-80); Nucleated Red Blood Cell # 0.00 Thou/mm3 (0.00-0.00); Nucleated Red Blood Cell % 0 /100 WBC (0); Platelet Count 247 Thou/mm3 (140-440); RDW Standard Deviation 53.0 fL (36.4-46.3); Red Blood Count 3.75 Miln/mm3 (4.00-5.20); White Blood Count 11.5 Thou/mm3 (3.6-11.0)
[2025-10-24 09:36] LABS: Alanine Aminotransferase 7 U/L (10-49); Albumin, Serum 3.8 gm/dL (3.4-4.8); Albumin/Globulin Ratio 1.4 (1.2-2.2); Alkaline Phosphatase 147 U/L (46-116); Anion Gap 8 (7-16); Aspartate Amino Transferase 15 U/L (0-34); BUN/Creatinine Ratio 13 Ratio (12-20); Bilirubin,Total 0.5 mg/dL (0.3-1.2); Blood Urea Nitrogen 9 mg/dL (9-23); Calcium 9.1 mg/dL (8.3-10.6); Calcium (Corrected) 9.3 mg/dL (8.5-10.1); Carbon Dioxide 27.9 mMol/L (20.0-31.0); Chloride 104 mMol/L (98-107); Creatinine (Component) 0.7 mg/dL (0.6-1.3); Estimated Creatinine Clearance 75.1 mL/min (>60); Globulin 2.8 gm/dL (2.3-3.5); Glucose 121 mg/dL (74-106); Osmolality,Calculated 279 (275-295); Potassium 3.4 mMol/L (3.4-5.1); Sodium 140 mMol/L (136-145); Total Protein 6.6 gm/dL (5.7-8.2); Troponin I < 0.020 ng/mL (0.0-0.045); eGFR > 60 See Note
[2025-10-24 11:29] LABS: Collection Type, Urine Catheter; Squamous Epithelial Cell,Urine 0 /hpf (0-5)
[2025-10-24 11:41] LABS: Alcohol, Blood Medical < 10.0 mg/dL (0-10.0); Troponin I < 0.020 ng/mL (0.0-0.045)
--- NOTE | 2025-10-24 11:51 | XR_ITS ---
EXAMINATION: Bilateral tibia fibulas 4 views TECHNIQUE: AP lateral left and right tibia fibula is 4 views Date and time: October 24, 2025, 1201 hours INDICATIONS: Patient fell 2 days ago with injury to both lower legs. Lower leg pain FINDINGS: Significant osteopenia No fracture or dislocation involving either lower leg No foreign bodies IMPRESSION: No fracture or dislocation involving either lower leg
--- NOTE | 2025-10-24 11:51 | XR_ITS ---
Examination: Foot bilateral, 6 views Technique: AP, oblique, lateral views each foot total 6 views Date and time of exam: October 24, 2025, 1201 hours INDICATIONS: Nonhealing wounds involving the left fifth digit FINDINGS: Severe osteopenia Early cortical bone destruction distal left fifth metatarsal and proximal phalanx left fifth digit No pathologic fracture No cortical bone destruction involving the right foot No right foot fractures IMPRESSION: Osteomyelitis distal left fifth metatarsal and proximal phalanx left fifth digit As clinically warranted, MRI foot without contrast follow-up would best assess full extent of osteomyelitis and assess for soft tissue abscess
--- NOTE | 2025-10-24 11:53 | PC.NURSE ---
Dr. Maria at bedside to do rectal exam with myself present, patient states she fell this am and states she hit her head, unknown loc, patient states she is not sure, patient on blood thinners, also, c/o left foot, teto. knee and generalized head pain 8/[address] Maria is aware, new orders placed.
[2025-10-24 12:03] LABS: Amphetamine/Methamp Scrn,U Negative (Negative); Barbiturate Screen,Urine Negative (Negative); Benzodiazepines Screen,Urine Negative (Negative); Benzoylecgonine Screen, Ur Negative (Negative); Fentanyl Screen,Urine Negative (Negative); Opiate Screen,Urine Positive (Negative); THC Screen,Urine Negative (Negative)
--- NOTE | 2025-10-24 12:05 | XR_ITS ---
Examination: CT brain head without contrast. 2-D sagittal coronal reconstructions Date and time of exam: October 24, 2025, 1306 hours INDICATIONS: Ground-level fall today with injury to the head, head pain COMPARISON: August 12, 2025 CTDI: vol (mGy): 49.3 DLP: (mGycm): 1019 Technique: Multiple CT axial sections of the brain have been obtained, 5 mm slice thickness. Contrast has not been administered. 2-D sagittal, coronal reconstructions have been obtained Low dose protocols were performed. One or more of the following dose reduction techniques were used; automated exposure control, adjustment of the mA and/or KV according to patient size, use of iterative reconstruction technique. Findings: No significant ventricular enlargement. Intra-axial or extra-axial hemorrhage density is not seen. No mass effect or midline shift Basal cisterns are not remarkable. Fourth ventricle is midline. Cranial vault intact. Impression: Negative for acute hemorrhage, mass effect or midline shift
--- NOTE | 2025-10-24 12:05 | XR_ITS ---
Examination: CT cervical spine without contrast 2-D sagittal reconstructions 2-D coronal reconstructions 3-D reconstructions. Exam date and time: October 24, 2025, 1306 hours INDICATIONS: Ground-level fall today with injury to the neck, neck pain CTDI:vol (mGy) 14.2 DLP: (mGycm) 342 Technique: Multiple 2 mm axial sections of the cervical spine have been obtained. The coronal and sagittal reconstructions have been obtained. 3-D reconstructions have been obtained. Low dose protocols were performed. One or more of the following dose reduction techniques were used; automated exposure control, adjustment of the mA and/or KV according to patient size, use of iterative reconstruction technique. Findings: Axial sections demonstrate intact base of the skull. C1 exhibit satisfactory relationship to the odontoid. No acute cervical vertebral body fracture seen. Alignment posterior spinous processes satisfactory. Impression: No acute cervical fracture.
[2025-10-24 12:07] LABS: Bilirubin,Urine Negative (Negative); Blood,Urine Negative (Negative); Clarity,Urine Clear (Clear/Hazy); Color,Urine Yellow (Lt Yel-Yel); Culture Indicated,Urine Not Indicated; Glucose, Urine Negative (Negative); Ketones,Urine 1+ (Negative); Leukocyte Esterase,Urine Negative (Negative); Nitrite,Urine Negative (Negative); PH,Urine 7.5 (5.0-7.0); Protein,Urine Trace (Neg - Trace); RBC,Urine 1 /hpf (0-3); Specific Gravity,Urine 1.017 (1.001-1.035); Urobilinogen,Urine Negative mg/dL (0.0-1.0); WBC,Urine 2 /hpf (0-5)
--- NOTE | 2025-10-24 13:05 | PC.NURSE ---
pt remains in imaging at this time. Will give meds once pt returns
[2025-10-24] MEDS: NICOTINE PATCH 21 MG/24 HR PATCH.TD24 TOP (13:16)
--- NOTE | 2025-10-24 13:49 | PC.NURSE ---
Pt refusing PIV insertion at this time. This RN notified Dr. Maria and provider educated pt about the need of IV antibiotics for infection. Pt agreed to attempt PIV insertion. YUNIER Sotelo attempting PIV
[2025-10-24] MEDS: RINGERS LACTATED 1000 ML 1,000 ML 999 ML IV (13:57)
[2025-10-24] MEDS: cefTRIAXone 2 GM in SODIUM CHLORIDE 0.9% (Popper) 50 ML IV (14:05)
[2025-10-24 15:09] LABS: C-Reactive Protein 6.2 mg/dL (0.0-0.9)
[2025-10-24 15:12] LABS: Sed Rate (ESR) 20 mm/hr (0-30)
--- NOTE | 2025-10-24 16:23 | PC.NURSE ---
Hospitalist at bedside
--- NOTE | 2025-10-24 16:48 | PC.NURSE ---
This RN attempted to get vital signs on pt. Pt is refusing vital signs to be done at this time
--- NOTE | 2025-10-24 17:06 | ESHP_ITS ---
<Statement entered by Magdi Aguilera MD - 10/24/25 20:32> 64-year-old female with a past medical history of type 2 diabetes mellitus, hypertension, COPD, CAD s/p stent (11/2024), peripheral arterial disease status post left hand amputation, anxiety, and bipolar disorder who is being admitted for osteomyelitis of left, distal metatarsal and proximal phalanx of 5th digit. Originally admitted due to anxiety and states she feels unsafe at home. Upon evaluation, she was visibly upset and difficult to obtain further history and so was obtained from chart review. Per EMS, other than tachycardia patient's vitals were within normal limits upon their arrival. In the ED, BP 165/70 but other vital signs were stable as she was on room air and afebrile. WBC slightly elevated at 11.5, ESR within normal limits, but CRP elevated at 6.2. CXR read as diffuse bilateral pneumonia, EKG showing NSR, CT head and C-spine normal, and XR tibia/fibula unremarkable. XR left foot showed previously mentioned osteomyelitis. Started on cefepime and vancomycin, general surgery and ID consulted, and wound care ordered. ----- Note reviewed and agree with care plan as documented. Please refer to the note below for further details. Plan discussed with attending physician Dr. Sherley Aguilera MD PGY-2 Internal Medicine Documentation for date of: 10/24/25 HPI History of Present Illness Chief complaint: s/p ground-level fall History of present illness: Patient is a 65 year old female with past medical history of with history of Bipolar disorder, CAD s/p PCI, MT, hypertension, diabetes, COPD, PAD s/p left hand amputation presents to the ED [facility] from assisted living home on 10/24/25 for evaluation following a fall. The patient presented with erratic behavior, displaying emotional lability and tangential speech, which made it difficult to obtain an accurate history. A review of the patient's history was obtain form chart review According to the patient, yesterday, while walking, she fell onto her side and hit her head on the floor. She also reports no dizziness prior to the fall but experiencing blurry vision and a headache. The patient denies chest pain, shortness of breath, abdominal pain, nausea, or vomiting. She was notably emotional and tangential in her responses during the evaluation. A history could not be fully obtained due to the patient's distractibility. In the ED, foot x-ray was performed, revealing osteomyelitis. When asked about when the left feet redness started or symptoms of fever or chills, the pateint went tangential, could not redirected herself. She began talking about her cats. She denies any suicidal ideation or thoughts of harming others. ED Course: -Initial vitals were BP 165/70, respiratory 18, temp 100.1, O2 sat 96% on room air. -Labs significant for WBC 11.5, hemoglobin 9.9, hematocrit 32.3. ESR normal at 20. CHEM panel to C-reactive protein of 6.2 otherwise unremarkable. U tox positive for opiates - Imaging included foot x-ray that showed osteomyelitis distal left fifth metatarsal and proximal phalanx left fifth digit. XR tibia fibula showed significant osteopenia. Cervical Spine CT No acute cervical fracture. Head CT Negative for acute hemorrhage, mass effect or midline shift. EKG sinus rhythm with a rate of 80. -In the ED, patient was given Ativan 1 mg x 1, nicotine patch, ceftriaxone 2 g x 1. -Patient was admitted for osteomyelitis evaluation and management. Review of Systems Review of systems otherwise negative except what is mentioned above. Past Medical History: Mentioned above Family History: Noncontributory Surgical History: Unable to obtain Social History: Smokes 3 pack of cigarettes a day for 55 years. 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 Unable obtain alcohol and illicit drug use history. Current Medications: Pending med rec Allergies: Codeine, meperidine, sulfa antibiotics Exam Vital Signs Temp Pulse Resp BP Pulse Ox O2 Del Method 98.7 F 80 18 163/77 H 95 Room Air 10/24/25 14:07 10/24/25 15:21 10/24/25 14:07 10/24/25 14:07 10/24/25 14:07 10/24/25 07:28 Narrative Exam General: Alert, anxious, tearful Skin: Warm, dry, intact. No rash or ecchymoses. Head: Normocephalic, atraumatic. Eye: Normal conjunctiva, PERRL. Throat: Oral mucosa moist. No obvious lesions in oropharynx. Cardiovascular: Regular rate and rhythm, no murmur, +S1/S2. Respiratory: Lungs are clear to auscultation, respirations unlabored, no crackles, no wheezing. Gastrointestinal: Soft, nontender, non-distended. No guarding or rebound tenderness. Extremities: Left hand amputation. L foot 1cm wound without pus near 5th MTP, erythematous and edematous Neuro: Alert and oriented x3.No focal deficits observed. Conversant, moving all extremities. No overt cerebellar signs/incoordination. Psychiatric: noncooperative, flight of ideas, pressured speech Results: Labs 10/24/25 08:58 10/25/25 16:47 Labs: Short CBC 10/24/25 Range/Units 08:58 WBC 11.5 H (3.6-11.0) Thou/mm3 Hgb 9.9 L (12.0-16.0) g/dL Hct 32.3 L (36.0-46.0) % Plt Count 247 (140-440) Thou/mm3 BMP 10/24/25 08:58 Sodium 140 Potassium 3.4 Chloride 104 Carbon Dioxide 27.9 BUN 9 Creatinine 0.7 Glucose 121 H Calcium 9.1 Cardiac Enzymes 10/24/25 10/24/25 Range/Units 08:58 10:53 Troponin I < 0.020 < 0.020 (0.0-0.045) ng/mL Liver Function 10/24/25 Range/Units 08:58 Total Bilirubin 0.5 (0.3-1.2) mg/dL AST 15 (0-34) U/L ALT 7 L (10-49) U/L Alkaline Phosphatase 147 H (46-116) U/L Albumin 3.8 (3.4-4.8) gm/dL Urine 10/24/25 Range/Units 11:20 Urine Color Yellow (Lt Yel-Yel) Urine Clarity Clear (Clear/Hazy) Urine pH 7.5 H (5.0-7.0) Ur Specific Isabela 1.017 (1.001-1.035) Urine Protein Trace (Neg - Trace) Urine Glucose (UA) Negative (Negative) Quality Measures Quality Measures none Advance care planning discussed with:: patient Medications Home Medications and Allergies Home Medications ?Medication ?Instructions ?Recorded ?Confirmed ?Type acetaminophen 325 mg tablet (Pain 650 mg PO 4XD PRN pa in 11/11/24 10/25/25 History Relief (acetaminophen)) amlodipine 10 mg tablet 10 mg PO QDAY 11/11/2410/25 History carvedilol 6.25 mg tablet 6.25 mg PO BID 11/11/2410/10 History isosorbide mononitrate 30 mg 30 mg PO QAM 11/11/24 History tablet,extended release 24 hr loperamide 2 mg capsule 2 mg PO Q4H PRN Loose Stool 11/11/24 10/25/25 History losartan 50 mg tablet 50 mg PO BID 11/11/24 History omeprazole 20 mg capsule,delayed 20 mg PO 1XD 11/11/24 10/25/25 History release ondansetron 4 mg disintegrating 4 mg PO 4XD PRN Nausea And Vomiting 11/11/24 10/25/25 History tablet tizanidine 4 mg capsule (Zanaflex) 8 mg PO Q8H PRN mus poonam spasticity 11/11/24 10/25/25 History lorazepam 1 mg tablet (Ativan) 1 mg PO Q6H PRN anxiety 10/25/25 10/25/25 History Allergies Allergy/AdvReac Type Severity Reaction Status Date / Time codeine Allergy Severe Rash Verified 08/17/25 10:59 meperidine (From Demerol) Allergy Severe Rash Verified 08/17/25 10:59 Sulfa (Sulfonamide Allergy Severe Rash Verified 08/17/25 10:59 Antibiotics) Visit Medications Acetaminophen (Acetaminophen 325 Mg Tablet) 650 mg PO Q6H PRN PRN Reason: Fever >101.5 Stop: 11/23/25 16:49 Aspirin (Aspirin Ec 81 Mg Tabec) 81 mg PO QDAY ALAN Stop: 11/24/25 06:59 Clopidogrel Bisulfate (Clopidogrel Bisulfate 75 Mg Tablet) 75 mg PO QDAY ALAN Stop: 11/24/25 08:59 Dextrose (Dextrose 50%-Water Inj 50 Ml Syringe) 25 ml IV Q15MIN PRN PRN Reason: BG 50-70 responsive npo pt Stop: 11/23/25 17:04 Dextrose (Dextrose 50%-Water Inj 50 Ml Syringe) 50 ml IV Q15MIN PRN PRN Reason: BG <50 OR BG <70 & pt unresponsive Stop: 11/23/25 17:04 Glucagon (Glucagon Inj 1 Mg Vial) 1 mg IM Q15MIN PRN PRN Reason: BG <70, and no IV access Cefepime HCl 2 gm/ Sodium (Chloride) 50 mls @ 100 mls/hr IV Q12HR [facility], [facility]1983 Stop: 10/31/25 17:00 Insulin Human Lispro (Insulin Lispro (Admelog) 1 Unit/0.01 Ml Unit) 0 unit SC ACHS [facility], 1928–1983; Protocol Stop: 11/23/25 20:59 Pantoprazole Sodium (Pantoprazole 40 Mg Tablet) 40 mg PO QDAY ALAN Stop: 11/24/25 08:59 Pharmacy Consult (Vancomycin Pharmacy To Dose 1 Each Each) 1 each IV PRN PRN PRN Reason: SSTI Stop: 11/23/25 16:59 Discontinued Medications Lactated Ringer's (Lactated Ringers) 1,000 mls @ 999 mls/hr IV .Q1H1M ONE Stop: 10/24/25 13:04 Last Infusion: 10/24/25 16:48 Dose: Infused Ceftriaxone Sodium 2 gm/ (Sodium Chloride) 50 mls @ 100 mls/hr IV X1 ONE Stop: 10/24/25 13:29 Last Infusion: 10/24/25 14:35 Dose: Infused Ceftriaxone Sodium 2 gm/ (Sodium Chloride) 50 mls @ 100 mls/hr IV X1 ONE Stop: 10/24/25 14:29 Last Admin: 10/24/25 14:10 Dose: Not Given Lorazepam (Lorazepam 0.5 Mg Tablet) 1 mg PO X1 ONE Stop: 10/24/25 07:48 Last Admin: 10/24/25 08:29 Dose: 1 mg Nicotine (Nicotine Patch 21 Mg/24 Hr Patch.Td24) 21 mg TOP X1 ONE Stop: 10/24/25 12:05 Last Admin: 10/24/25 13:16 Dose: 21 mg Assessment & Plan Plan Patient is a 65 year old female with past medical history of with history of Bipolar disorder, CAD s/p PCI, MT, hypertension, diabetes, asthma, PAD s/p left hand amputation presents to the ED [facility] from assisted living home on 10/24/25 for evaluation following a fall. Found to have a cellulitis on imaging. Admitted for osteomyelitis evaluation and management. #Mild headache s/p ground-level fall Ground-level fall yesterday with no ecchymosis or trauma noted on face examination. - Cervical Spine CT No acute cervical fracture. Head CT Negative for acute hemorrhage, mass effect or midline shift. Plan -Tylenol 650 mg p.o. as needed - Continue to monitor mentation - Consider up psychiatry outpatient #Osteomyelitis of distal left metatarsal and proximal phalanx left fifth digit # PAD s/p left hand amputation Was incidental finding as patient did came to the ED for ground-level fall. Imaging were negative for trauma. Upon evaluation noted swelling, warm and tenderness to palpation on the left feet. She denies fever, chills however, unable to obtain more history about feet presentation due to patient tangentiality. Of note she did report having 3 cats. WBC 11.5, C-reactive protein 6.2, ESR normal at 20 - Physical exam:left hand amputation. L foot 1cm wound without pus near 5th MTP, erythematous and edematous - Foot x-ray that showed osteomyelitis distal left fifth metatarsal and proximal phalanx left fifth digit. - XR tibia fibula showed significant osteopenia. Plan - Vancomycin pharmacy dose - Cefepime 2 mg every 12 - Blood culture-patient refusing labs - ESR and CRP - Infectious disease consulted, recommendation appreciated - General Surge consulted, recommendation appreciated - Referral to wound care #CAD s/p PCI #History MT Patient has a history of MT for which cardiac cath was done on 11/16/24 showed 80% stenois on RCA. - Single vessel coronary artery disease with acute myocardial infarction with RCA being culprit vessel, underwent successful SPOOL SALVAGER stent placed to the proximal right coronary artery using a drug-eluting stent and mid and distal segment stent placement - Patient has not been following with outpatient divorce lawyer or compliant with medications Plan - Resume Plavix and 5 mg p.o. daily - Resume aspirin 81 mg p.o. p.o. daily #Anxiety #Atypical chest pain Per ED provider , patient has been having a recent life stressor which has caused anxiety episode with some associated chest pain and shortness of breath which has now subsided. Due to the patient having significant past medical history of CAD post PCI and MT cardiac workup was done to rule out any NSTEMI EKG shows sinus rhythm with a rate of 89 QTc of 438. - 3 troponin were negative less than 0.020; Plan - CTM anxiety, will consider resuming Ativan 1 mg for anxiety/agitation after med reconciliation. #Hypertension Patient with patient has a history of hypertension for which she takes amlodipine 10 mg. On admission BP 165/70. - Resumed amlodipine 10 mg p.o. daily #Diabetes mellitus Patient noted patient having diabetes for which he takes metformin 500 mg p.o. twice daily. On admission glucose 121 Plan - A1c, pending -Insulin sliding scale #Bipolar disorder - Does not follow-up with psychiatrist, does not recall the medication. Plan - Advised follow-up outpatient psychiatry. #?Ashtma Per chart review patient has uses inhaler at home. No wheezes or crackles heard on auscultation. Plan - Pending med rec Hospital management: Lines: peripheral IV Diet: Cardiac GI prophylaxis: Protonix 40 mg p.o. DVT prophylaxis: Heparin Subc [facility]. CODE STATUS: Full code Patient assessed under supervision of attending physician and senior resident Dr. Aguilera PGY-2 Tarsha Del Valle MD PGY-1, Internal Medicine Please note: this document was transcribed using voice recognition technology; minor inaccuracies may be present. Attending Provider Attestation/Addendum I have examined the patient, reviewed labs and imaging findings, discussed the case with the resident(s), and reviewed entered orders. I agree with the plan of care as outlined in this note, with these additional summaries/recommendations: After examination of the patient and review of the clinical data, I feel that this patient needs admission to the hospital for further treatment and evaluation. Dr. Sherley MD
--- NOTE | 2025-10-24 17:27 | PC.NURSE ---
JAYLA FROM [facility] CALLING TO CHECK ON STATUS OF PT AND STATED IF PT DECIDES TO RETURN TO HOSPICE CARE THEY WILL ACCEPT HER BACK AND THEY WILL ALSO FOLLOW UP WITH SOCIAL SERVICE IN THE MORNING.
[2025-10-24] MEDS: CEFEPIME INJ 2 GM in SODIUM CHLORIDE 0.9% (Popper) 50 ML IV ×2 (17:30→21:25)
[2025-10-24] MEDS: Vancomycin Inj 1,500 MG in SODIUM CHLORIDE 0.9% 500 ML 500 ML 250 MG IV (18:46)
--- NOTE | 2025-10-24 20:48 | PC.NURSE ---
Called MD Thomas to let him know that lab called to ask if MD melton needed the blood cultures since pt refused labs for Blood culture in ER. Dr Thomas stated that they still needed blood cultures and came to room to talk to pt, Pt did agree to get labs done. fuel cell technician notified.
[2025-10-24] MEDS: oxyCODONE HCL 5 MG IR TAB 10 MG PO (21:47)
--- NOTE | 2025-10-24 22:03 | PC.NURSE ---
pt refused heparin inj, Dr. Thomas was made aware of pt's refusal.
[2025-10-25] VITALS: BP 132/63; PULSE 61; RESP 16; TEMP 36.5; O2SAT 95
--- NOTE | 2025-10-25 00:15 | PC.NURSE ---
Pt is requesting to go out to smoke, pt was explained that pts are not allowed to go out, i offered pt a nicotine patch but she stated that she already had one to left upper arm, pt stated that she needs to smoke or she will leave ama and requested card writer hand to call her son so he could come and picke her up, Dr Aponte was made aware. Md will come to talk to pt. Maris FAYE made aware.
[2025-10-25 04:00] VITALS: BP 120/74; PULSE 84; RESP 16; TEMP 37; O2SAT 95
--- NOTE | 2025-10-25 06:50 | PC.NURSE ---
Around 0620 am, RT Yue called sports book writer to let me know that there was a patient trying to leave, Pt was walking getting to the stairs, RN and other staff from the floor tried to take pt back to her room but she refused multiple times stating that she had to get to her son before Sergio. Pt was wearing her clothes and shoes and had her purse with her. Pt stated that she was leaving and that it was not okay that we were keeping her against her will. Stefanie armando was called at 0630 AM, Dr. Aponte was made aware and came at bedside to talk to patient. Pt was repeatedly getting out of bed without calling for assistance since around midnight stating that she wanted to go back to [place]. She tried to leave AMA 2x before the stefanie armando was called, Dr. Thomas was notified the first time and Dr. Aponte was notified the 2nd time, both doctors came at bedside to talk to pt when they were notified. Pt was very impulsive and crying most of the night. Bed alarm was on all the time and it did not go off at any moment. Pt stated that she turned the bed alarm off. No medication was ordered for pt when MDs were notified and Dr. aponte stated that she did not want an avasure in the room since pt could get more altered with the avasure in the room. Asset Accountant called pt's son (Guadalupe Tellez to [phone]) multiple times as per patient request to see if he could come and flower picker pt, i was unable to get a hold of pt's son.
[2025-10-25] MEDS: oxyCODONE HCL 5 MG IR TAB 10 MG PO ×2 (08:48→21:21)
[2025-10-25 08:49] VITALS: BP 120/74; PULSE 84
[2025-10-25] MEDS: CLOPIDOGREL BISULFATE 75 MG TABLET PO (08:49)
[2025-10-25] MEDS: PANTOPRAZOLE 40 MG TABLET PO (08:49)
[2025-10-25] MEDS: ASPIRIN EC 81 MG TABEC PO (08:49)
[2025-10-25] MEDS: CEFEPIME INJ 2 GM in SODIUM CHLORIDE 0.9% (Popper) 50 ML IV ×2 (08:50→21:21)
--- NOTE | 2025-10-25 09:44 | ESPR_ITS ---
<Statement entered by Magdi Aguilera MD - 10/25/25 12:35> No acute overnight events. However, patient noted to be agitated early in the morning and expressing her wishes to leave. Upon evaluation, patient was assessed and did not have capacity. Ordered haloperidol 2.5 mg PO x1. Evaluated by general surgery and patient elected to not undergo any procedures. Vital signs are stable, no fevers. She is also refusing labs and administration of antibiotics. Blood cultures pending. ----- Note reviewed and agree with care plan as documented. Please refer to the note below for further details. Plan discussed with attending physician Dr. Jess Aguilera MD PGY-2 Internal Medicine Documentation for date of: 10/25/25 Subjective Subjective Interval history: The patient was restless overnight and requested to leave the hospital AGAINST MEDICAL ADVICE. Despite initial agitation, she later expressed dissatisfaction with the care but ultimately decided to remain for treatment. Today, the patient was seen and examined at the bedside and continues to insist on leaving AGAINST MEDICAL ADVICE. She was highly agitated, stating, ?This is not a real hospital, I want to transfer to a real hospital.? She used profane language towards the medical team, and was visibly upset. To manage her agitation, she was administered 2.5 mg of Haldol orally. Upon evaluation, the patient was found to lack capacity to make informed medical decisions. She displayed tangential speech and was unable to maintain a coherent conversation. Additionally, she exhibited flights of ideas and was unable to recall the events that led to her hospitalization. Despite her agitation, she denies having suicidal thoughts or any intent to harm others. Labs and vitals were not updated due the patient refusal. Patient was evaluated by general surgery today and she was electing to not undergo any procedures. Exam Vital Signs Temp Pulse Resp BP Pulse Ox O2 Del Method 98.6 F 84 16 120/74 95 Room Air 10/25/25 04:00 10/25/25 08:49 10/25/25 04:00 10/25/25 08:49 10/25/25 04:00 10/25/25 04:00 Narrative Exam General: Alert, anxious, restless Skin: Warm, dry, intact. No rash or ecchymoses. Head: Normocephalic, atraumatic. Eye: Normal conjunctiva, PERRL. Throat: Oral mucosa moist. No obvious lesions in oropharynx. Cardiovascular: Regular rate and rhythm, no murmur, +S1/S2. Respiratory: Lungs are clear to auscultation, respirations unlabored, no crackles, no wheezing. Gastrointestinal: Soft, nontender, non-distended. No guarding or rebound tenderness. Extremities: Left hand amputation. L foot 1cm open wound without pus near 5th MTP, erythematous and edematous Neuro: Alert and oriented x3.No focal deficits observed. Conversant, moving all extremities. No overt cerebellar signs/incoordination. Psychiatric: noncooperative, flight of ideas, pressured speech, confabulating Objective Labs 10/24/25 08:58 10/25/25 16:47 Labs: Laboratory Results - last 24 hr 10/24/25 10/24/25 10/24/25 10:53 11:20 11:24 ESR 20 Troponin I < 0.020 C-Reactive Prot, Quant 6.2 H Ur Collection Type Catheter Urine Color Yellow Urine Clarity Clear Urine pH 7.5 H Ur Specific [place] 1.017 Urine Protein Trace Urine Glucose (UA) Negative Urine Ketones 1+ A Urine Blood Negative Urine Nitrite Negative Urine Bilirubin Negative Urine Urobilinogen (Auto) Negative Ur Leukocyte Esterase Negative Urine RBC 1 Urine WBC 2 Ur Squamous Epith Cells 0 Urine Bacteria None Ur Culture Indicated? Not Indicated Urine Opiates Screen Positive A Urine Fentanyl Screen Negative Ur Barbiturates Screen Negative U Amphetamin/Meth Scrn Negative U Benzodiazepines Scrn Negative U Cocaine Metab Screen Negative U Marijuana (THC) Screen Negative Ethyl Alcohol < 10.0 Quality Measures Quality Measures none Advance care planning discussed with:: patient and other Assessment & Plan Assessment Current Active Medications: Generic Name Dose Route Start Last Admin Trade Name Freq PRN Reason Stop Dose Admin Acetaminophen 650 mg 10/24/25 20:05 Acetaminophen 325 Mg Tablet PO 11/23/25 16:49 Q6H PRN Fever >101.5 AND PAIN 1-3 Albuterol/Ipratropium 3 ml 10/25/25 08:00 Albuterol/Ipratropium (Duoneb) Rt Indira 3 Ml Nebu INH 11/24/25 07:59 Q4HRRT PRN wheezing Amlodipine Besylate 10 mg 10/24/25 20:15 10/25/25 08:49 Amlodipine Besylate 5 Mg Tablet PO 11/23/25 20:14 10 mg QDAY ALAN Administration Aspirin 81 mg 10/25/25 07:00 10/25/25 09:22 Aspirin Ec 81 Mg Tabec PO 11/24/25 06:59 Not Given QDAY ALAN Clopidogrel Bisulfate 75 mg 10/25/25 09:00 10/25/25 08:49 Clopidogrel Bisulfate 75 Mg Tablet PO 11/24/25 08:59 75 mg QDAY ALAN Administration Dextrose 25 ml 10/24/25 17:05 Dextrose 50%-Water Inj 50 Ml Syringe IV 11/23/25 17:04 Q15MIN PRN BG 50-70 responsive npo pt Dextrose 50 ml 10/24/25 17:05 Dextrose 50%-Water Inj 50 Ml Syringe IV 11/23/25 17:04 Q15MIN PRN BG <50 OR BG <70 & pt unresponsive Glucagon 1 mg 10/24/25 17:05 Glucagon Inj 1 Mg Vial IM Q15MIN PRN BG <70, and no IV access Heparin Sodium (Porcine) 5,000 unit 10/24/25 21:00 10/25/25 09:22 Heparin Sod Inj 5000 Unit/Ml Vial SC 11/07/25 20:59 Not Given BID ALAN Cefepime HCl 2 gm/ Sodium 50 mls @ 100 mls/hr 10/24/25 17:01 10/25/25 08:50 Chloride IV 10/31/25 17:00 100 mls/hr Q12HR ALAN Administration Vancomycin HCl 200 mls @ 120 mls/hr 10/25/25 10:00 Vancomycin/Water 1gm Ivpb IV 11/01/25 09:59 Q12H [facility] Insulin Human Lispro 0 unit 10/24/25 21:00 10/25/25 07:38 Insulin Lispro (Admelog) 1 Unit/0.01 Ml Unit SC 11/23/25 20:59 Not Given ACHS [facility] Protocol Lorazepam 1 mg 10/25/25 09:38 Lorazepam 0.5 Mg Tablet PO 10/30/25 09:37 Q6H PRN ANXIETY Oxycodone HCl 10 mg 10/24/25 17:41 10/25/25 08:48 Oxycodone Hcl 5 Mg Ir Tab PO 10/29/25 17:40 10 mg Q6HR PRN Administration pain 4-10 Pantoprazole Sodium 40 mg 10/25/25 09:00 12/16/25 08:49 Pantoprazole 40 Mg Tablet PO 11/24/25 08:59 40 mg QDAY ALAN Administration Pharmacy Consult 1 each 10/24/25 17:00 Vancomycin Pharmacy To Dose 1 Each Each IV 11/23/25 16:59 PRN PRN SSTI Plan Patient is a 65 year old female with past medical history of with history of Bipolar disorder, CAD s/p PCI, MN, hypertension, diabetes, ?asthma/copd, PAD s/p left hand amputation presents to the ED BIB from assisted living home on 10/24/25 for evaluation following a fall. Found to have a cellulitis on imaging. Admitted for osteomyelitis evaluation and management. #Mild headache s/p ground-level fall Ground-level fall yesterday with no ecchymosis or trauma noted on face examination. - Cervical Spine CT No acute cervical fracture. Head CT Negative for acute hemorrhage, mass effect or midline shift. Plan -Tylenol 650 mg p.o. as needed - Continue to monitor mentation - Consider up psychiatry outpatient #Osteomyelitis of distal left metatarsal and proximal phalanx left fifth digit #PAD s/p left hand amputation Was incidental finding as patient did came to the ED for ground-level fall. Imaging were negative for trauma. Upon evaluation noted swelling, warm and tenderness to palpation on the left feet. She denies fever, chills however, unable to obtain more history about feet presentation due to patient tangentiality. Of note she did report having 3 cats. WBC 11.5, C-reactive protein 6.2, ESR normal at 20 - Physical exam:left hand amputation. L foot 1cm open wound without pus near 5th MTP, erythematous and edematous - Foot x-ray that showed osteomyelitis distal left fifth metatarsal and proximal phalanx left fifth digit. - XR tibia fibula showed significant osteopenia. Plan - Vancomycin pharmacy dose - Cefepime 2 mg every 12 - Blood culture-patient refusing labs - ESR and CRP - Infectious disease consulted, recommendation appreciated - General Surgery consulted, recommendation appreciated- patient elected to not undergo any procedures. - Referral to wound care #CAD s/p PCI #History MN Patient has a history of MN for which cardiac cath was done on 11/16/24 showed 80% stenois on RCA. - Single vessel coronary artery disease with acute myocardial infarction with RCA being culprit vessel, underwent successful UPHOLSTERY SEWER stent placed to the proximal right coronary artery using a drug-eluting stent and mid and distal segment stent placement - Patient has not been following with outpatient chairman or compliant with medications Plan - Plavix and 5 mg p.o. daily - aspirin 81 mg p.o. p.o. daily #Anxiety #Atypical chest pain Per ED provider , patient has been having a recent life stressor which has caused anxiety episode with some associated chest pain and shortness of breath which has now subsided. Due to the patient having significant past medical history of CAD post PCI and MN cardiac workup was done to rule out any NSTEMI EKG shows sinus rhythm with a rate of 89 QTc of 438. - 3 troponin were negative less than 0.020; Plan - CTM anxiety - Ativan 1 mg PO q6h prn for anxiety/agitation #Hypertension Patient with patient has a history of hypertension for which she takes amlodipine 10 mg. however have been noncompliant with medications On admission BP 165/70. - amlodipine 10 mg p.o. daily #Diabetes mellitus Patient noted patient having diabetes for which he takes metformin 500 mg p.o. twice daily. On admission glucose 121 Plan - A1c, pending-refusing labs -Insulin sliding scale-refusing bedside glucose checks #Bipolar disorder - Does not follow-up with psychiatrist, does not recall the medication. - Upon evaluation, the patient was found to lack capacity to make informed medical decisions. She displayed tangential speech and was unable to maintain a coherent conversation. Additionally, she exhibited flights of ideas and was unable to recall the events that led to her hospitalization. Despite her agitation, she denies having suicidal thoughts or any intent to harm others. Plan - Advised follow-up outpatient psychiatry. #?Ashtma/COPD Per chart review patient has uses inhaler at home. No wheezes or crackles heard on auscultation. Plan - Per med rec not taking inhalers. Hospital management: Lines: peripheral IV Diet: Cardiac GI prophylaxis: Protonix 40 mg p.o. DVT prophylaxis: Heparin Subc Disposition: MedSurg for osteomyelitis management. CODE STATUS: Full code Patient assessed under supervision of attending physician and senior resident Dr. Aguilera PGY-2 Tarsha Del Valle MD PGY-1, Internal Medicine Please note: this document was transcribed using voice recognition technology; minor inaccuracies may be present. Attending Provider Attestation/Addendum I, Damaris Mercado DO, attest that I was physically present for the avendaño portions of the service and evaluated the patient with the resident and I reviewed and discussed the case with the resident and agree with the resident's findings and plans of care as documented above Patient seen and evaluated this AM. Patient is very hostile, sitting at the edge of her bed, and does not want to answer questions. Patient was asked what brought her to the hospital. She responded with a question Why does everyone have an attitude here? . She was frustrated since she wanted to go outside to smoke her cigarette. Patient was wearing booties and refused to remove her shoe for exam. Patient became more agitated with questioning and refused IV medications. Due to agitation, patient was given haldol.
[2025-10-25] MEDS: NICOTINE PATCH 21 MG/24 HR PATCH.TD24 TOP (09:51)
--- NOTE | 2025-10-25 13:51 | PD.SURCONS ---
HPI Consult details History of present illness: 65F with HTN, COPD, DMII, CAD s/p stent on plavix, PAD s/p L hand amputation who was admitted for osteomyelitis of the left 5th toe. Pt has declined all attempts to examine the toe and did so again this afternoon when I visited her with our wound care RNs Meds Home Medications and Allergies Home Medications ?Medication ?Instructions ?Recorded ?Confirmed ?Type acetaminophen 325 mg tablet (Pain 650 mg PO 4XD PRN pain 11/11/24 10/25/25 History Relief (acetaminophen)) amlodipine 10 mg tablet 10 mg PO QDAY 11/11/24 10/25/25 History carvedilol 6.25 mg tablet 6.25 mg PO BID 11/11/24 10/25/25 History isosorbide mononitrate 30 mg 30 mg PO QAM 11/11/24 10/25/25 History tablet,extended release 24 hr loperamide 2 mg capsule 2 mg PO Q4H PRN Loose Stool 11/11/24 10/25/25 History losartan 50 mg tablet 50 mg PO BID 11/11/24 10/25/25 History omeprazole 20 mg capsule,delayed 20 mg PO 1XD 11/11/24 10/25/25 History release ondansetron 4 mg disintegrating 4 mg PO 4XD PRN Nausea And Vomiting 11/11/24 10/25/25 History tablet tizanidine 4 mg capsule (Zanaflex) 8 mg PO Q8H PRN muscle spasticity 11/11/24 10/25/25 History lorazepam 1 mg tablet (Ativan) 1 mg PO Q6H PRN anxiety 10/25/25 10/25/25 History Allergies Allergy/AdvReac Type Severity Reaction Status Date / Time codeine Allergy Severe Rash Verified 08/17/25 10:59 meperidine (From Demerol) Allergy Severe Rash Verified 08/17/25 10:59 Sulfa (Sulfonamide Allergy Severe Rash Verified 08/17/25 10:59 Antibiotics) Exam Vital Signs Temp Pulse Resp BP Pulse Ox O2 Del Method 98.6 F 84 16 120/74 95 Room Air 10/25/25 04:00 10/25/25 08:49 10/25/25 04:00 10/25/25 08:49 10/25/25 04:00 10/25/25 04:00 Constitutional Constitutional: no acute distress Routine Respiratory Exam Respiratory: Present no resp distress Results Results: Laboratory Laboratory results: results reviewed Results: Imaging Imaging narrative: Foot xray reviewed Assessment & Plan Plan 65F with HTN, COPD, DMII, CAD s/p stent on plavix, PAD s/p L hand amputation who was admitted for osteomyelitis of the left 5th toe, declining physical exam and intervention Please reconsult if pt is amenable
--- NOTE | 2025-10-25 15:37 | PC.NURSE ---
Patient refused all scheduled medications and blood glucose monitoring despite educations on risk and benefits. Patient appeared anxious and repeatedly verbalized desire to leave against medical advice. Medications given, see MAR. Patient noted to be disoriented at this time. Continue monitoring and re-education provided as tolerated. Dr. Jess vieira.
[2025-10-25 16:00] VITALS: BP 120/60; PULSE 87; RESP 18; TEMP 36.6; O2SAT 96
[2025-10-25 17:41] LABS: Anion Gap 14 (7-16); BUN/Creatinine Ratio 7 Ratio (12-20); Blood Urea Nitrogen < 5 mg/dL (9-23); C-Reactive Protein 6.8 mg/dL (0.0-0.9); Calcium 8.6 mg/dL (8.3-10.6); Carbon Dioxide 23.1 mMol/L (20.0-31.0); Chloride 103 mMol/L (98-107); Creatinine (Component) 0.7 mg/dL (0.6-1.3); Estimated Creatinine Clearance 74.1 mL/min (>60); Glucose 192 mg/dL (74-106); Magnesium 1.3 mg/dL (1.6-2.6); Osmolality,Calculated 281 (275-295); Phosphorous 2.8 mg/dL (2.4-5.1); Potassium 3.4 mMol/L (3.4-5.1); Sodium 140 mMol/L (136-145); eGFR > 60 See Note
[2025-10-25 19:00] VITALS: BP 98/62; PULSE 85; RESP 18; TEMP 36.2; O2SAT 99
--- NOTE | 2025-10-25 21:56 | PC.NURSE ---
Patient is confused and trying to leave, sitter at bedside. Patient is refusing IV ABX, was running cefepime and IV infiltrated, removed IV and patient is refusing another one. Will notify .
[2025-10-26] VITALS (10 sets, daily range): BP systolic 118–165; BP diastolic 62–113; PULSE 65–103; RESP 16–19; TEMP 36.2–36.9; O2SAT 94–99
[2025-10-26] MEDS: oxyCODONE HCL 5 MG IR TAB 10 MG PO ×2 (04:15→20:25)
--- NOTE | 2025-10-26 07:06 | PD.IDPROG ---
Subjective Subjective Interval history: foot osteo unable to be seen by surgery. no mri. going off only xray. known pvd noted received panicked call from my resident that rx was stopped. esr of 20 and crp that is low also noted. along with lack of fever and dx of early osteo by radiology on xray only and lack of pos cx to guide rx also noted. mri ordered this am along with hep c screen. neither done. no surgery either. 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 small ulcer over L 5th met head laterally noted problems with L foot for a year now. failed variety of rx from dr he at [facility]. Objective - Internal Medicine Labs 10/24/25 08:58 10/25/25 16:47 Labs: Laboratory Results - last 24 hr 10/25/25 16:47 WBC Cancelled RBC Cancelled Hgb Cancelled Hct Cancelled MCV Cancelled MCH Cancelled MCHC Cancelled RDW Std Deviation Cancelled Plt Count Cancelled Neut % (Auto) Cancelled Lymph % (Auto) Cancelled Grainger % (Auto) Cancelled Eos % (Auto) Cancelled Baso % (Auto) Cancelled Neut # (Auto) Cancelled Lymph # (Auto) Cancelled Grainger # (Auto) Cancelled Eos # (Auto) Cancelled Baso # (Auto) Cancelled Immature Gran # (Auto) Cancelled Absolute Nucleated RBC Cancelled Immature Gran % Cancelled Nucleated RBC % Cancelled Sodium 140 Potassium 3.4 Chloride 103 Carbon Dioxide 23.1 Anion Gap 14 BUN < 5 L Creatinine 0.7 Estim Creat Clear Calc 74.1 eGFR > 60 BUN/Creatinine Ratio 7 L Glucose 192 H D Calculated Osmolality 281 Calcium 8.6 Phosphorus 2.8 Magnesium 1.3 L C-Reactive Prot, Quant 6.8 H Assessment & Plan A&P Narrative osteo of foot by xray only pvd will get mri and hope she allows a foot exam later normal esr raise concern for pvd associated issue with foot so we should get the mri. if she allows it will stop by later on if you must treat her empirically, cefepime is bid or tid in most cases so is not good for home and we usually add po doxy 100 po bid to rocephin 2 gm iv daily empirically for 6 weeks. if mri equivocal, then maybe she does not have osteo after all. please do not use cefepime . it is much like fortaz and recently became cheaper so we changed from fortaz to cefepime. if she refuses mri, will go with rocephin and doxy empirically and if intolerant, then just note that. Time Spent With Patient Time: Total time spent is greater than 50% in coordination of care (as documented) at patient's floor/unit and/or counseling patient:
--- NOTE | 2025-10-26 07:15 | PC.NURSE ---
Addendum entered by Gina Farmer RN 10/26/25 10:29: Dr. Del Valle aware Original Note: Went in to complete morning assessment of patient. Patient is very restless and confused. She was naked. Gave patient a gown. Patient would not allow me to listen to her lungs or bowel sounds. Patient's bed was soiled. Told patient we were going to change her linens. Was able to complete a partial assessment. Patient became very upset and said You're alex I don't bonk you. Told the patient I would let her rest and if she needed me she could call me on the call light. Will continue to reassess patient.
[2025-10-26] MEDS: ASPIRIN EC 81 MG TABEC PO (08:52)
[2025-10-26] MEDS: PANTOPRAZOLE 40 MG TABLET PO (08:52)
[2025-10-26] MEDS: CLOPIDOGREL BISULFATE 75 MG TABLET PO (08:52)
[2025-10-26] MEDS: ACETAMINOPHEN 325 MG TABLET 650 MG PO (08:58)
--- NOTE | 2025-10-26 09:59 | ESPR_ITS ---
<Statement entered by Magdi Aguilera MD - 10/26/25 15:26> No acute overnight events. However, noted to receive haloperidol x 1 and Ativan x 2 for agitation. Seen and examined at bedside and IV placed that she agreed to IV antibiotics but later noted to refuse infusions. She was also seen by rehabilitation case coordinator and patient used to have head bucker but as of today she no longer does and lives alone in an apartment complex for which she is at risk for eviction. Currently patient does not have capacity to make medical decisions and will be evaluated by crisis team for possible placement in a psych facility. She was also evaluated by infectious disease and requesting MRI, however patient cannot ascertain whether or not she has had any procedures where metal was placed. Spoke to radiology and recommended obtaining AP CXR as well as AP and lateral skull x-ray and if negative can undergo MRI. If negative for osteomyelitis, patient may not require IV antibiotics. However, if she refuses MRI she will require Rocephin and Doxy empirically until 11/29/2025. ----- Note reviewed and agree with care plan as documented. Please refer to the note below for further details. Plan discussed with attending physician Dr. Jess Aguilera MD PGY-2 Internal Medicine Documentation for date of: 10/26/25 Subjective Subjective Interval history: Overnight receive haloperidol x 1 and Ativan x 2 for agitation. Today patient seen examined at bedside. Reporting that she was not feeling well all over. However when asked to explain she just stared blankly.. Vitals reviewed noted to be hypertensive 165/66 unable to get labs due to patient refusal. Fingerstick blood glucose 186. However unable to administer insulin sliding scale due to patient refusal. Infectious disease recommend MRI of left foot, discontinue vancomycin and cefepime and started patient on ceftriaxone and doxycycline. The patient was seen by rehabilitation case coordinator ans social insurance adviser today. Currently, the patient lacks capacity to make medical decisions and will be evaluated by the crisis team for possible placement in a psychiatric facility. She was also assessed by the infectious disease team, which has requested an MRI. However, the patient is unable to obtain mri screening information from patient or point of contact in the file for she has had any procedures metal placement. After consult with radiology, it was recommended to obtain an AP chest X-ray and skull X-rays both view. If these are negative, the patient can proceed with the MRI. If osteomyelitis is ruled out, the patient may not require IV antibiotics. Exam Vital Signs Temp Pulse Resp BP Pulse Ox O2 Del Method 97.5 F 82 18 142/96 H 99 Room Air 10/26/25 08:00 10/26/25 08:52 10/26/25 08:00 10/26/25 08:52 10/26/25 08:00 10/26/25 08:00 Narrative Exam General: Alert, anxious, restless Skin: Warm, dry, intact. No rash or ecchymoses. Head: Normocephalic, atraumatic. Eye: Normal conjunctiva, PERRL. Throat: Oral mucosa moist. No obvious lesions in oropharynx. Cardiovascular: Regular rate and rhythm, no murmur, +S1/S2. Respiratory: Lungs are clear to auscultation, respirations unlabored, no crackles, no wheezing. Gastrointestinal: Soft, nontender, non-distended. No guarding or rebound tenderness. Extremities: Left hand amputation. L foot 1cm open wound without pus near 5th MTP, erythematous(improving) and edematous (improving) Neuro: Alert and oriented x3.No focal deficits observed. Conversant, moving all extremities. No overt cerebellar signs/incoordination. Psychiatric: noncooperative,sad effect Objective Labs 10/24/25 08:58 10/25/25 16:47 Labs: Laboratory Results - last 24 hr 10/25/25 16:47 WBC Cancelled RBC Cancelled Hgb Cancelled Hct Cancelled MCV Cancelled MCH Cancelled MCHC Cancelled RDW Std Deviation Cancelled Plt Count Cancelled Neut % (Auto) Cancelled Lymph % (Auto) Cancelled [place] % (Auto) Cancelled Eos % (Auto) Cancelled Baso % (Auto) Cancelled Neut # (Auto) Cancelled Lymph # (Auto) Cancelled [place] # (Auto) Cancelled Eos # (Auto) Cancelled Baso # (Auto) Cancelled Immature Gran # (Auto) Cancelled Absolute Nucleated RBC Cancelled Immature Gran % Cancelled Nucleated RBC % Cancelled Sodium 140 Potassium 3.4 Chloride 103 Carbon Dioxide 23.1 Anion Gap 14 BUN < 5 L Creatinine 0.7 Estim Creat Clear Calc 74.1 eGFR > 60 BUN/Creatinine Ratio 7 L Glucose 192 H D Calculated Osmolality 281 Calcium 8.6 Phosphorus 2.8 Magnesium 1.3 L C-Reactive Prot, Quant 6.8 H Quality Measures Quality Measures none Advance care planning discussed with:: patient and other Assessment & Plan Assessment Current Active Medications: Generic Name Dose Route Start Last Admin Trade Name Freq PRN Reason Stop Dose Admin Acetaminophen 650 mg 10/24/25 20:05 10/26/25 08:58 Acetaminophen 325 Mg Tablet PO 11/23/25 16:49 650 mg Q6H PRN Administration Fever >101.5 AND PAIN 1-3 Albuterol/Ipratropium 3 ml 10/25/25 08:00 Albuterol/Ipratropium (Duoneb) Rt Indira 3 Ml Nebu INH 11/24/25 07:59 Q4HRRT PRN wheezing Amlodipine Besylate 10 mg 10/24/25 20:15 10/26/25 08:52 Amlodipine Besylate 5 Mg Tablet PO 11/23/25 20:14 10 mg QDAY ALAN Administration Aspirin 81 mg 10/25/25 07:00 10/26/25 08:52 Aspirin Ec 81 Mg Tabec PO 11/24/25 06:59 81 mg QDAY ALAN Administration Clopidogrel Bisulfate 75 mg 10/25/25 09:00 10/26/25 08:52 Clopidogrel Bisulfate 75 Mg Tablet PO 11/24/25 08:59 75 mg QDAY ALAN Administration Dextrose 25 ml 10/24/25 17:05 Dextrose 50%-Water Inj 50 Ml Syringe IV 11/23/25 17:04 Q15MIN PRN BG 50-70 responsive npo pt Dextrose 50 ml 10/24/25 17:05 Dextrose 50%-Water Inj 50 Ml Syringe IV 11/23/25 17:04 Q15MIN PRN BG <50 OR BG <70 & pt unresponsive Glucagon 1 mg 10/24/25 17:05 Glucagon Inj 1 Mg Vial IM Q15MIN PRN BG <70, and no IV access Heparin Sodium (Porcine) 5,000 unit 10/24/25 21:00 10/26/25 08:56 Heparin Sod Inj 5000 Unit/Ml Vial SC 11/07/25 20:59 Not Given BID ALAN Insulin Human Lispro 0 unit 10/24/25 21:00 10/26/25 07:54 Insulin Lispro (Admelog) 1 Unit/0.01 Ml Unit SC 11/23/25 20:59 Not Given ACHS COUNTS INCLUDE 234 BEDS AT THE [facility] Protocol Lorazepam 1 mg 10/25/25 09:38 10/26/25 04:15 Lorazepam 0.5 Mg Tablet PO 10/30/25 09:37 1 mg Q6H PRN Administration ANXIETY Oxycodone HCl 10 mg 10/24/25 17:41 10/26/25 04:15 Oxycodone Hcl 5 Mg Ir Tab PO 10/29/25 17:40 10 mg Q6HR PRN Administration pain 4-10 Pantoprazole Sodium 40 mg 10/25/25 09:00 10/26/25 08:52 Pantoprazole 40 Mg Tablet PO 11/24/25 08:59 40 mg QDAY ALAN Administration Plan Patient is a 65 year old female with past medical history of with history of Bipolar disorder, CAD s/p PCI, IA, hypertension, diabetes, ?asthma/copd, PAD s/p left hand amputation presents to the ED BIBA from assisted living home on 10/24/25 for evaluation following a fall. Found to have a cellulitis on imaging. Admitted for osteomyelitis evaluation and management. #Osteomyelitis of distal left metatarsal and proximal phalanx left fifth digit #PAD s/p left hand amputation Was incidental finding as patient did came to the ED for ground-level fall. Imaging were negative for trauma. Upon evaluation noted swelling, warm and tenderness to palpation on the left feet. She denies fever, chills however, unable to obtain more history about feet presentation due to patient tangentiality. Of note she did report having 3 cats. WBC 11.5, C-reactive protein 6.2, ESR normal at 20 - Physical exam:left hand amputation. L foot 1cm open wound without pus near 5th MTP, erythematous and edematous - Foot x-ray that showed osteomyelitis distal left fifth metatarsal and proximal phalanx left fifth digit. - XR tibia fibula showed significant osteopenia. - Discontinue by ID - Vancomycin AND Cefepime Plan - Ceftriaxone 2gm IV (10/26- - Doxycycline 20 mg p.o. BID (10/26- - Follow-up blood culture - ESR and CRP, pendinf due to pt lab refusal - Infectious disease consulted, recommendation appreciated - General Surgery consulted, recommendation appreciated- patient elected to not undergo any procedures. - radiology recommendation- obtain an AP chest X-ray and skull X-rays both view. If these are negative, the patient can proceed with the MRI. - Referral to wound care #Mild headache s/p ground-level fall Ground-level fall yesterday with no ecchymosis or trauma noted on face examination. - Cervical Spine CT No acute cervical fracture. Head CT Negative for acute hemorrhage, mass effect or midline shift. Plan -Tylenol 650 mg p.o. as needed - Continue to monitor mentation - Psychiatry outpatient #CAD s/p PCI #History IA Patient has a history of IA for which cardiac cath was done on 11/16/24 showed 80% stenois on RCA. - Single vessel coronary artery disease with acute myocardial infarction with RCA being culprit vessel, underwent successful QUALITY ASSURANCE TECH stent placed to the proximal right coronary artery using a drug-eluting stent and mid and distal segment stent placement - Patient has not been following with outpatient dog races manager or compliant with medications Plan - Plavix and 5 mg p.o. daily - aspirin 81 mg p.o. p.o. daily #Anxiety #Atypical chest pain Per ED provider , patient has been having a recent life stressor which has caused anxiety episode with some associated chest pain and shortness of breath which has now subsided. Due to the patient having significant past medical history of CAD post PCI and IA cardiac workup was done to rule out any NSTEMI EKG shows sinus rhythm with a rate of 89 QTc of 438. - 3 troponin were negative less than 0.020; Plan - CTM anxiety - Ativan 1 mg PO q6h prn for anxiety/agitation #Hypertension Patient with patient has a history of hypertension for which she takes amlodipine 10 mg. however have been noncompliant with medications On admission BP 165/70. - amlodipine 10 mg p.o. daily #Diabetes mellitus Patient noted patient having diabetes for which he takes metformin 500 mg p.o. twice daily. On admission glucose 121 Plan - A1c, pending-refusing labs -Insulin sliding scale-refusing bedside glucose checks #Bipolar disorder - Does not follow-up with psychiatrist, does not recall the medication. - Upon evaluation, the patient was found to lack capacity to make informed medical decisions. She displayed tangential speech and was unable to maintain a coherent conversation. Additionally, she exhibited flights of ideas and was unable to recall the events that led to her hospitalization. Despite her agitation, she denies having suicidal thoughts or any intent to harm others. Plan - Advised follow-up outpatient psychiatry - lawn care worker referral, awaiting crisis team evaluation #?Ashtma/COPD Per chart review patient has uses inhaler at home. No wheezes or crackles heard on auscultation. Plan - Per med rec not taking inhalers. - Breathing tx prn Hospital management: Lines: peripheral IV Diet: Cardiac GI prophylaxis: Protonix 40 mg p.o. DVT prophylaxis: Heparin Subc Disposition: MedSurg for osteomyelitis management. CODE STATUS: Full code Patient assessed under supervision of attending physician and senior resident Dr. Aguilera PGY-2 Tarsha Del Valle MD PGY-1, Internal Medicine Please note: this document was transcribed using voice recognition technology; minor inaccuracies may be present. Attending Provider Attestation/Addendum I, Damaris Mercado, DO, attest that I was physically present for the avendaño portions of the service and evaluated the patient with the resident and I reviewed and discussed the case with the resident and agree with the resident's findings and plans of care as documented above Patient seen and eval this a.m. She is much calmer and cooperative today. Fifth metatarsal head area was noted to have a dry ulcer with mild erythema of surrounding skin. She reports pain as well. Discussed with patient that she will need an MRI of her foot to further assess osteomyelitis. Patient states that she does not need any test and she has extreme claustrophobia. Patient refused examination. Will have ID speak with patient as they are wishing to obtain an MRI. ESR is noted to be within normal limits. Patient is anxious to go home. However, she appears to have at times tangential and flight of ideas. She will need to have a mental health evaluation prior to discharge.
--- NOTE | 2025-10-26 10:21 | PC.LAC ---
Pt has an MRI screening. Patient is confused and unable to answer the questions. Called the patient's point of contact. Wrong number listed. Called the number on file for the brother. Brother did not answer. Will continue to try the brother's phone number. Unable to complete at this time.
--- NOTE | 2025-10-26 14:46 | ESCONSULT_ITS ---
RE: MOODYMONE : 1960 DATE OF CONSULTATION: 10/25/2025 REFERRING PHYSICIAN: Dr. Lepe and also Dr. Dietz. REASON FOR CONSULTATION: Osteomyelitis of the left foot in a patient with peripheral vascular disease. HISTORY OF PRESENT ILLNESS: Patient esr and crp are minimally elevated despite a year of sx. She has a tender left foot. PAST MEDICAL HISTORY: Her medical problems include mental health disorders, peripheral vascular disease. PAST SURGICAL HISTORY: Prior surgical history includes prior amputation of the left hand for peripheral vascular disease and known coronary disease with prior stenting and prior peripheral vascular stenting as well. ALLERGIES: She denies any allergies. IMMUNIZATIONS: Last tetanus is about 4 years ago. She does not take a flu shot regularly because she says she gets worse when she gets it. She has had pneumococcal vaccine and has not had the COVID vaccine. FAMILY HISTORY: Unremarkable. SOCIAL HISTORY: She lives with 2 of her children in an apartment home. She is a regular smoker and does not plan to quit. She has been smoking for many years. pe> tender l foot. dried ulcer L5th met otherwise alert RECOMMENDATIONS: I will check on her Friday if she remains, but if you wish to send her home, it is going to be 6 weeks of Rocephin and doxycycline which started the , so the treatment through about the 07 of December. unless her mri shows otherwise or unless she is willing to have it done DT: 14:11:13 TT: 14:45:00 Ref: [id number] - TID: [id number] MTDD
--- NOTE | 2025-10-26 14:53 | PC.SS ---
TILE AND MOTTLE SUPERVISOR was assisted by ZI Gamez to meet with patient to conduct an initial assessment. TILE AND MOTTLE SUPERVISOR asked patient what her is and she responded with Nov.23. Patient did not know her address. Patient was only able to state she lives with 2 cats. Patient has been repeatedly asking about her cats to staff. Patient is altered at this time. Unable to answer questions appropriately. Patient was admitted for osteomyelitis. Patient has a long history of being admitted with AMS. Notes indicate patient has hx: bipolar. No follow up with psych. No out patient appointments. No documented history of p.c.p. Patient currently refusing care in hospital setting. SS attempted to contact patient's son, Guadalupe Tellez @ [phone] with no response and no voicemail set up. SS attempted to contact patient's brother, Slick Rubin, @ [phone] with no response. SS contacted multimedia services manager at [facility] [place]. Isaias, construction project manager @ [phone] states patient has been a problem in apartments. He indicated she's been wandering around and knocking on other people's doors and forgetting where she lives. Patient has been smoking in apartments when the rules are no smoking. repair department manager states patient had an [facility] care provider, Shonda Piper @ [phone], who construction project manager states was her careprovider, but quit as of today. repair department manager states patient's lease is up and he is not wanting to renew because patient has been a problem. TILE AND MOTTLE SUPERVISOR's updated physician team. APS will be filed for self neglect. Physician put order in for gravely disabled and requested 1:1 sitter and to be evaluated by crisis team once medically cleared. Patient is unable to meet her basic needs, unable to meet her own medical care, no family/friend support.
--- NOTE | 2025-10-26 14:59 | XR_ITS ---
EXAMINATION: Skull series 2 views TECHNIQUE: Osmani right lateral skull series 2 views Date and time: October, 1523 hours INDICATIONS: Preop MRI study FINDINGS: Left nose ring no aneurysm clip Intact cranial vault IMPRESSION: No aneurysm clip identified
--- NOTE | 2025-10-26 15:00 | PC.SS ---
MIDDLE SCHOOL COUNSELOR confirmed with resident that patient will require a mental health evaluation to assess for patient being gravely disabled.? Chart review indicates that patient possesses a mental health diagnosis of Bi-Polar Disorder.? Patient is unable to provide for necessary medical care.? Resident to submit order for 1:1 sitter.? social services designee to update bedside nurse.
--- NOTE | 2025-10-26 15:01 | XR_ITS ---
EXAMINATION: AP chest single view TECHNIQUE: AP portable upright chest single view Date and time: October 26, 2025, 1536 hours, comparison October 24, 2025 INDICATIONS: Preop MRI FINDINGS: Normal heart size Accentuation of bronchovascular markings No cardiac leads Left axillary surgical clips IMPRESSION: No cardiac leads
--- NOTE | 2025-10-26 15:08 | PC.NURSE ---
Patient had scheduled IV antibiotics due at 1400. Went in to administer medication. Patient agreed to the medicine. However, when the medicine was scanned and ready to administer, patient would not allow me to give her the medicine or even touch her arm. Patient became very upset and said No!
--- NOTE | 2025-10-26 15:26 | PC.SS ---
Addendum entered by Tran Wilson 10/26/25 15:47: POC: Guadalupe Tellez, son, . SS was able to obtain son's correct number. Son states he has not seen her but talks to his mother daily. He states her baseline is she is altered half the time and able to ambulate with her walker. Son states patient often refuses care when she's admitted. He states patient has dx: Schizophrenia and bipolar. He does not know a lot of her medical history or her home situation. Patient's son states that patient is on morphine at home. He's not sure why. Patient's son states her careprovider should know more. Son provided number for careprovider, Shonda Piper as [phone]. Son also states patient was recently placed on hospice services. However, son does not know which hospice agency or when this occurred. Updated physician team Original Note: APS report verbally called in and filed. APS worker: Yue Riojas @ [phone]
--- NOTE | 2025-10-26 15:54 | PC.NURSE ---
Patient is very restless and says she wants to go home. Patient states that the doctor told her she could leave and come back after Sergio. Informed Patient that we need to complete an MRI. She said she does not want an MRI and she needs to leave. Called Dr. Aguilera and made aware. Dr. Aguilera said he will come by.
[2025-10-26] MEDS: DOXYCYCLINE 100 MG TABLET PO (20:26)
[2025-10-26] MEDS: NICOTINE PATCH 14 MG/24 HR PATCH.TD24 TOP (20:26)
[2025-10-26] MEDS: cefTRIAXone 2 GM in SODIUM CHLORIDE 0.9% (Popper) 50 ML IV (20:43)
[2025-10-27] VITALS (10 sets, daily range): BP systolic 59–175; BP diastolic 36–85; PULSE 55–82; RESP 16–27; TEMP 36.2–37.1; O2SAT 90–99; BMI 25.0
[2025-10-27] MEDS: oxyCODONE HCL 5 MG IR TAB 10 MG PO ×2 (03:25→19:53)
[2025-10-27] MEDS: DOXYCYCLINE 100 MG TABLET PO ×2 (08:19→19:51)
[2025-10-27] MEDS: PANTOPRAZOLE 40 MG TABLET PO (08:20)
[2025-10-27] MEDS: ASPIRIN EC 81 MG TABEC PO (08:20)
[2025-10-27] MEDS: CLOPIDOGREL BISULFATE 75 MG TABLET PO (08:20)
[2025-10-27] MEDS: HEPARIN SOD INJ 5000 UNIT/ML VIAL SC ×2 (08:24→19:50)
[2025-10-27] MEDS: NICOTINE PATCH 14 MG/24 HR PATCH.TD24 TOP (09:14)
[2025-10-27] MEDS: ONDANSETRON INJ 2 MG/ML INJ 2 ML 4 MG IVP (10:19)
--- NOTE | 2025-10-27 11:38 | EKG_ITS ---
[facility] Test Date: 2025-10-27 Pat Name: MONE MOODY [facility] Gender: Female Fan Mail Clerk: TP : 1960 Requested By: Amandeep Llanes Order Number: [id number] Reading MD: Amandeep Llanes Measurements Intervals Dwight Rate: 61 P: 49 FL: 144 QRS: 31 QRSD: 95 T: 67 QT: 494 QTc: 500 Interpretive Statements SINUS RHYTHM NONSPECIFIC ST & T-WAVE ABNORMALITY PROLONGED QT INTERVAL Compared to ECG 10/24/2025 08:17:47 T-wave abnormality now present Prolonged QT interval now present Intraventricular conduction delay no longer present ST (T wave) deviation no longer present /store/S0/[id number]/[id number]
[2025-10-27] MEDS: NITROGLYCERIN 0.4 MG SUBL BTL #25 SL (11:46)
[2025-10-27 12:07] LABS: Lactate (Lactic Acid) 1.4 mMol/L (0.4-2.0)
[2025-10-27 12:10] LABS: Basophils # (Auto) 0.0 Thou/mm3 (0.0-0.2); Basophils % (Auto) 1 % (0-2.5); Eosinophils # (Auto) 0.1 Thou/mm3 (0.0-0.5); Eosinophils % (Auto) 2 % (0-10); Hematocrit 34.6 % (36.0-46.0); Hemoglobin 11.1 g/dL (12.0-16.0); Immature Granulocytes Auto 0.03 Thou/mm3 (0.00-0.00); Lymphocytes # (Auto) 1.2 Thou/mm3 (1.0-4.8); Lymphocytes % (Auto) 16 % (10-50); Mean Corpuscular HGB Conc 32.1 g/dl (31.0-37.0); Mean Corpuscular Hemoglobin 26.1 pg (25.0-35.0); Mean Corpuscular Volume 81 fL (80-100); Monocytes # (Auto) 0.5 Thou/mm3 (0.0-0.8); Monocytes % (Auto) 6 % (0-12); Neutrophils # (Auto) 5.5 Thou/mm3 (1.8-7.7); Neutrophils % (Auto) 76 % (37-80); Nucleated Red Blood Cell # 0.00 Thou/mm3 (0.00-0.00); Nucleated Red Blood Cell % 0 /100 WBC (0); Platelet Count 389 Thou/mm3 (140-440); RDW Standard Deviation 50.0 fL (36.4-46.3); Red Blood Count 4.25 Miln/mm3 (4.00-5.20); White Blood Count 7.3 Thou/mm3 (3.6-11.0)
--- NOTE | 2025-10-27 12:23 | ECHO_ITS ---
Patient Info Name: Stephanie Jacobs Age: 65 years : 1960 Gender: Female Ht: 163 cm Wt: 66 kg BSA: 1.74 m2 BP: 167 / 79 mmHg HR: 67 bpm Exam Date: 10/27/2025 5:02 PM Admit Date: 10/24/2025 Site: [facility] Room Number: [id number] Patient Status: I Exam Type: CA echo doppler complete Outside Medical Sales Representative: Ale Petit Ordering Physician: Tarsha Del Valle Study Info Indications Chest pain, history of CAD - Primary Location: S2SX Left Ventricular Outflow Tract Name Value Normal LVOT 2D LVOT Diameter 1.9 cm LVOT Doppler LVOT Peak Velocity 111 cm/s LVOT Mean Gradient 3 mmHg LVOT VTI 27 cm LVOT VTI/AV VTI Ratio 0.9 LVOT Stroke Volume 75 ml Pulmonic Valve Name Value Normal PV Doppler PV Peak Velocity 117 cm/s Mitral Valve Name Value Normal MV Doppler MV Mean Gradient 2 mmHg MV Decel Humphreys 406 cm/s2 MV PHT 59 ms MV Area (PHT) 3.7 cm2 4.0-5.0 MV Area (Cont Eq VTI) 2.0 cm2 MV Diastolic Function MV E Peak Velocity 83 cm/s MV A Peak Velocity 118 cm/s MV E/A 0.7 MV Annular TDI MV Septal e' Velocity 4.7 cm/s MV E/e' (Septal) 17.7 MV Lateral e' Velocity 7.5 cm/s MV E/e' (Lateral) 11.0 MV e' Average 6.10 cm/s MV E/e' (Average) 14.4 Tricuspid Valve Name Value Normal TV Regurgitation Doppler TR Peak Velocity 183 cm/s Estimated PAP/RSVP RA Pressure 8 mmHg <=5 PA Systolic Pressure 21 mmHg <36 RV Systolic Pressure 21 mmHg <36 Aortic Valve Name Value Normal AV 2D/MM AV Cusp Sep (MM) 1.7 cm AV Doppler AV Peak Velocity 153 cm/s AV Mean Gradient 6 mmHg AV VTI 28 cm AV Area (Cont Eq VTI) 2.7 cm2 >=3.0 AV Area (Cont Eq Rajat) 2.1 cm2 AV DI (Rajat) 0.73 AV Regurgitation 2D LVOT Area 2.8 cm2 Ventricles Name Value Normal LV Dimensions 2D/MM IVS Diastolic Thickness (2D) 1.0 cm 0.6-0.9 LVID Diastole (2D) 3.9 cm 3.8-5.2 LVIW Diastolic Thickness (2D) 1.2 cm 0.6-0.9 LVID Systole (2D) 2.6 cm 2.2-3.5 LVOT Diameter 1.9 cm LV Mass (2D Cubed) 140.09 g 67.00-162.00 LV Mass Index (2D Cubed) 80 g/m2 43-95 Relative Wall Thickness (2D) 0.62 <=0.42 IVS/LVIW Diastolic Thickness (2D) 0.83 0.00-1.50 LV Fractional Shortening/Ejection Fraction 2D/MM LV Fractional Shortening (2D) 33 % 27-45 LV EF (2D Teichholz) 63 % Atria Name Value Normal LA Dimensions LA Volume (4C A-L) 64 ml Left Ventricle Left ventricular chamber dimension is normal. Left ventricular systolic function is normal with visually estimated ejection fraction of 55-60%. There is mild concentric hypertrophy noted in the left ventricle. Left ventricular segmental wall motion is normal. There is grade I diastolic dysfunction in the left ventricle. Right Ventricle Right ventricular chamber dimension is normal. Right ventricular systolic function is normal. Left Atrium Left atrial chamber dimension is normal. Right Atrium Right atrial chamber dimension is normal. Aortic Valve The aortic valve is trileaflet. There is mild aortic valve sclerosis. There is no aortic valve stenosis with a peak velocity of 153 cm/s, mean gradient of 6 mmHg, and aortic valve area of 2.7 cm2. There is mild aortic valve regurgitation. Pulmonic Valve The pulmonic valve is normal. There is no pulmonic valve stenosis. There is no pulmonic regurgitation. Mitral Valve The mitral valve has normal leaflets. There is no mitral valve stenosis. There is trace mitral valve regurgitation. Tricuspid Valve The tricuspid valve leaflets are normal. There is no tricuspid valve stenosis. There is trace tricuspid valve regurgitation. No pulmonary hypertension, estimated pulmonary arterial systolic pressure is 21 mmHg and systemic blood pressure of 167 mmHg in systole. Pericardium/Pleural The pericardium appears normal. There is no pericardial effusion. No pleural effusion visualized. Inferior Vena Cava Normal inferior vena cava with >50% collapse upon inspiration consistent with normal right atrial pressure, 8 mmHg. Aorta The aortic measurements are indexed to age and body surface area. The aortic root at the sinus of Valsalva is not well visualized. The prox ascending aorta is not well visualized. Summary 1. Left ventricle size is normal and systolic function is normal. Estimated ejection fraction is 55-60%. There is grade I diastolic dysfunction. There is mild concentric hypertrophy noted. 2. Right ventricle chamber size is normal and systolic function is normal. Estimated RVSP is 21 mmHg. 3. There is mild aortic valve sclerosis with no stenosis and mild regurgitation. 4. There is trace mitral and tricuspid valve regurgitation. 5. Normal IVC with estimated RA pressure 8 mmHg. Report Signatures Finalized by Sushila Murphy on 10/27/2025 11:19 PM
--- NOTE | 2025-10-27 12:30 | PC.NURSE ---
Pt was complaining of anxiety at 11:20. Went in to give patient her prn ativan at 11:37.. Patient began complaining of Chest pain radiating to the jaw and shortness of breath. Called rapid response at 11:37. At close of rapid patient's ending blood pressure was 59/36 and patient was unsteady and lethargic. Called second rapid at 12:04. Patient transferred to telemetry. At the end of second rapid patient was alert and oriented. nauseous and vomiting. Called son to update.
[2025-10-27 12:44] LABS: Anion Gap 13 (7-16); BUN/Creatinine Ratio 7 Ratio (12-20); Blood Urea Nitrogen 5 mg/dL (9-23); Calcium 8.5 mg/dL (8.3-10.6); Carbon Dioxide 23.3 mMol/L (20.0-31.0); Chloride 105 mMol/L (98-107); Creatinine (Component) 0.7 mg/dL (0.6-1.3); Estimated Creatinine Clearance 74.1 mL/min (>60); Glucose 224 mg/dL (74-106); Magnesium 1.0 mg/dL (1.6-2.6); Osmolality,Calculated 285 (275-295); Sodium 141 mMol/L (136-145); Troponin I < 0.020 ng/mL (0.0-0.045); eGFR > 60 See Note
[2025-10-27 12:50] LABS: Potassium 2.4 mMol/L (3.4-5.1)
[2025-10-27 12:55] LABS: C-Reactive Protein 1.5 mg/dL (0.0-0.9)
[2025-10-27 13:02] LABS: Glucose Estimated Average 134 mg/dL (80-131); Hemoglobin A1C 6.3 % Hgb (4.8-6.0)
[2025-10-27 13:04] LABS: Sed Rate (ESR) 16 mm/hr (0-30)
[2025-10-27] MEDS: Magnesium Sulfate 4 GM Ivpb 4 GM/50 ML BAG IV (13:09)
[2025-10-27] MEDS: POTASSIUM CHLORIDE 10% 20 MEQ/15 ML UDC 60 MEQ PO (13:10)
--- NOTE | 2025-10-27 13:21 | ESPR_ITS ---
<Statement entered by Magdi Aguilera MD - 10/27/25 14:40> No acute overnight events. Seen and examined at bedside in the morning patient resting comfortably in bed. She had no complaints at that time. However, around noon multiple rapids were called - the first of which was for chest discomfort and the second for hypotension, please see event note for details. In summary, patient endorsed substernal chest discomfort that radiated to her jaw with associated shortness of breath but was reproducible with palpation. Ordered EKG and when compared to previous EKG some new T wave inversions seen in leads V1 and V2 with depressions in V2 and V3. Troponins negative and will order one more repeat for follow-up and cardiology consulted and upgraded to telemetry. MRI ordered for further evaluation of ostemyelitis and whether or not antibiotics will be needed. She was also evaluated by crisis team and no need for psychiatric placement and ordered PT to see if patient will benefit from SNF. ----- Note reviewed and agree with care plan as documented. Please refer to the note below for further details. Plan discussed with attending physician Dr. Sherley Aguilera MD PGY-2 Internal Medicine Documentation for date of: 10/27/25 Subjective Subjective Interval history: No acute events overnight. The patient was seen and examined at bedside in the morning, resting comfortably in bed without complaints. She appeared more alert, oriented, and responsive, aware of her situation, and expressed willingness to remain for management following a discussion with her son yesterday. Upon evaluation, the patient denied chest pain, palpitations, abdominal pain, or nausea. An episode of emesis was noted, and Zofran was administered. The patient was also evaluated by the crisis team and psychiatrist, and it was determined that she has the capacity to make medical decisions, so no psychiatric placement was necessary. Physical therapy was ordered to assess whether the patient would benefit from a fpc facility. However, around noon, multiple rapid responses were called. The first was for chest discomfort, and the second for hypotension?see event note for details. Cardiology was consulted, and the patient was upgraded to telemetry. An MRI was ordered for further evaluation of osteomyelitis to determine if antibiotics are required. Exam Vital Signs Temp Pulse Resp BP Pulse Ox O2 Del Method 97.8 F 55 L 22 H 59/36 L 90 L Room Air 10/27/25 12:04 10/27/25 12:04 10/27/25 11:37 10/27/25 12:04 10/27/25 12:04 10/27/25 07:02 Narrative Exam General: Alert, pale, restless Skin: Warm, dry, intact. No rash or ecchymoses. Head: Normocephalic, atraumatic. Eye: Normal conjunctiva, PERRL. Throat: Oral mucosa moist. No obvious lesions in oropharynx. Cardiovascular: Regular rate and rhythm, no murmur, +S1/S2. Respiratory: Lungs are clear to auscultation, respirations unlabored, no crackles, no wheezing. Gastrointestinal: Soft, nontender, non-distended. No guarding or rebound tenderness. Extremities: Left hand amputation. L foot 1cm open wound without pus near 5th MTP, erythematous(improving) and edematous (improving) Neuro: Alert and oriented x3.No focal deficits observed. Conversant, moving all extremities. No overt cerebellar signs/incoordination. Psychiatric: cooperative,happy effect Objective Labs 10/27/25 11:55 10/27/25 11:55 Labs: Laboratory Results - last 24 hr 10/27/25 11:55 WBC 7.3 RBC 4.25 Hgb 11.1 L Hct 34.6 L MCV 81 MCH 26.1 MCHC 32.1 RDW Std Deviation 50.0 H Plt Count 389 D Neut % (Auto) 76 Lymph % (Auto) 16 Baxter % (Auto) 6 Eos % (Auto) 2 Baso % (Auto) 1 Neut # (Auto) 5.5 Lymph # (Auto) 1.2 Baxter # (Auto) 0.5 Eos # (Auto) 0.1 Baso # (Auto) 0.0 Immature Gran # (Auto) 0.03 H Absolute Nucleated RBC 0.00 Immature Gran % 0 Nucleated RBC % 0 ESR 16 Sodium 141 Potassium 2.4 L* D Chloride 105 Carbon Dioxide 23.3 Anion Gap 13 BUN 5 L Creatinine 0.7 Estim Creat Clear Calc 74.1 eGFR > 60 BUN/Creatinine Ratio 7 L Glucose [address] Glu mg/dL 134 H Hemoglobin A1c 6.3 H Calculated Osmolality 285 Lactic Acid 1.4 Calcium 8.5 Magnesium 1.0 L Troponin I < 0.020 C-Reactive Prot, Quant 1.5 H Quality Measures Quality Measures none Advance care planning discussed with:: patient Assessment & Plan Assessment Current Active Medications: Generic Name Dose Route Start Last Admin Trade Name Freq PRN Reason Stop Dose Admin Acetaminophen 650 mg 10/24/25 20:05 10/26/25 08:58 Acetaminophen 325 Mg Tablet PO 11/23/25 16:49 650 mg Q6H PRN Administration Fever >101.5 AND PAIN 1-3 Albuterol/Ipratropium 3 ml 10/25/25 08:00 Albuterol/Ipratropium (Duoneb) Rt Indira 3 Ml Nebu INH 11/24/25 07:59 Q4HRRT PRN wheezing Amlodipine Besylate 10 mg 10/24/25 20:15 10/27/25 08:20 Amlodipine Besylate 5 Mg Tablet PO 11/23/25 20:14 10 mg QDAY ALAN Administration Aspirin 81 mg 10/25/25 07:00 10/27/25 08:20 Aspirin Ec 81 Mg Tabec PO 11/24/25 06:59 81 mg QDAY ALAN Administration Clopidogrel Bisulfate 75 mg 10/25/25 09:00 10/27/25 08:20 Clopidogrel Bisulfate 75 Mg Tablet PO 11/24/25 08:59 75 mg QDAY ALAN Administration Dextrose 25 ml 10/24/25 17:05 Dextrose 50%-Water Inj 50 Ml Syringe IV 11/23/25 17:04 Q15MIN PRN BG 50-70 responsive npo pt Dextrose 50 ml 10/24/25 17:05 Dextrose 50%-Water Inj 50 Ml Syringe IV 11/23/25 17:04 Q15MIN PRN BG <50 OR BG <70 & pt unresponsive Doxycycline Hyclate 100 mg 10/26/25 21:00 10/27/25 08:19 Doxycycline 100 Mg Tablet PO 11/02/25 20:59 100 mg BID ALAN Administration Glucagon 1 mg 10/24/25 17:05 Glucagon Inj 1 Mg Vial IM Q15MIN PRN BG <70, and no IV access Heparin Sodium (Porcine) 5,000 unit 10/24/25 21:00 10/27/25 08:24 Heparin Sod Inj 5000 Unit/Ml Vial SC 11/07/25 20:59 5,000 unit BID ALAN Administration Ceftriaxone Sodium 2 gm/ 50 mls @ 100 mls/hr 10/26/25 14:03 10/26/25 14:53 Sodium Chloride IV 11/02/25 14:02 Not Given QDAY@1400 ALAN Magnesium Sulfate 4 gm in 50 mls @ 12.5 mls/hr 10/27/25 13:00 10/27/25 13:09 Magnesium Sulfate Ivpb IV 10/27/25 16:59 12.5 mls/hr X1 ONE Administration Magnesium Sulfate 50 mls @ 25 mls/hr 10/27/25 17:00 Magnesium Sulfate Ivpb IV 10/27/25 18:59 X1 ONE Insulin Human Lispro 0 unit 10/24/25 21:00 10/27/25 13:04 Insulin Lispro (Admelog) 1 Unit/0.01 Ml Unit SC 11/23/25 20:59 Not Given ACHS ALAN Protocol Lorazepam 1 mg 10/25/25 09:38 10/27/25 01:54 Lorazepam 0.5 Mg Tablet PO 10/30/25 09:37 1 mg Q6H PRN Administration ANXIETY Lorazepam 2 mg 10/27/25 10:45 Lorazepam 2 Mg/Ml Vial IVP 11/01/25 10:44 X1 PRN Agitation Nicotine 14 mg 10/27/25 09:00 10/27/25 09:14 Nicotine Patch 14 Mg/24 Hr Patch.Td24 TOP 11/26/25 08:59 14 mg QDAY ALAN Administration Ondansetron HCl 4 mg 10/27/25 10:06 10/27/25 10:19 Ondansetron Inj 2 Mg/Ml Inj 2 Ml IVP 11/26/25 10:05 4 mg Q6HR PRN Administration NAUSEA OR VOMITING Protocol Oxycodone HCl 10 mg 10/24/25 17:41 10/27/25 03:25 Oxycodone Hcl 5 Mg Ir Tab PO 10/29/25 17:40 10 mg Q6HR PRN Administration pain 4-10 Pantoprazole Sodium 40 mg 10/25/25 09:00 10/27/25 08:20 Pantoprazole 40 Mg Tablet PO 11/24/25 08:59 40 mg QDAY ALAN Administration Potassium Chloride 60 meq 10/27/25 15:30 Potassium Chloride 10% 20 Meq/15 Ml Udc PO 10/27/25 15:31 X1 ONE Plan Patient is a 65 year old female with past medical history of with history of Bipolar disorder, CAD s/p PCI, VA, hypertension, diabetes, ?asthma/copd, PAD s/p left hand amputation presents to the ED [facility] from assisted living home on 10/24/25 for evaluation following a fall. Found to have a cellulitis on imaging. Admitted for osteomyelitis evaluation and management. #Osteomyelitis of distal left metatarsal and proximal phalanx left fifth digit #PAD s/p left hand amputation Was incidental finding as patient did came to the ED for ground-level fall. Imaging were negative for trauma. Upon evaluation noted swelling, warm and tenderness to palpation on the left feet. She denies fever, chills however, unable to obtain more history about feet presentation due to patient tangentiality. Of note she did report having 3 cats. WBC 11.5, C-reactive protein 6.2, ESR normal at 20 - Physical exam:left hand amputation. L foot 1cm open wound without pus near 5th MTP, erythematous and edematous - Foot x-ray that showed osteomyelitis distal left fifth metatarsal and proximal phalanx left fifth digit. - XR tibia fibula showed significant osteopenia. - Discontinue by ID - Vancomycin AND Cefepime - radiology recommendation- obtain an AP chest X-ray and skull X-rays both view. If these are negative, the patient can proceed with the MRI. -ESR 16, CRP improved from 6.8t o 1.5. Plan - Ceftriaxone 2gm IV (10/26- - Doxycycline 20 mg p.o. BID (10/26- - Follow-up blood culture-no growth after 24 hours - Infectious disease consulted, recommendation appreciated - General Surgery consulted, recommendation appreciated- patient elected to not undergo any procedures. - Referral to wound care #Mild headache s/p ground-level fall Ground-level fall yesterday with no ecchymosis or trauma noted on face examination. - Cervical Spine CT No acute cervical fracture. Head CT Negative for acute hemorrhage, mass effect or midline shift. Plan -Tylenol 650 mg p.o. as needed - Continue to monitor mentation - Psychiatry outpatient #CAD s/p PCI #History VA Patient has a history of VA for which cardiac cath was done on 11/16/24 showed 80% stenois on RCA. - Single vessel coronary artery disease with acute myocardial infarction with RCA being culprit vessel, underwent successful [employer] stent placed to the proximal right coronary artery using a drug-eluting stent and mid and distal segment stent placement - Patient has not been following with outpatient [employer] team member or compliant with medications Plan - Plavix and 5 mg p.o. daily - aspirin 81 mg p.o. p.o. daily #Anxiety #Cardiac chest pain Per ED provider, patient has been having a recent life stressor which has caused anxiety episode with some associated chest pain and shortness of breath which has now subsided. Due to the patient having significant past medical history of CAD post PCI and VA cardiac workup was done to rule out any NSTEMI EKG shows sinus rhythm with a rate of 89 QTc of 438. - 3 troponin were negative less than 0.020; - Patient became more agreeable to get treated after speaking to her son. On 10/27, a rapid response was called for a patient presenting with retrosternal chest pain radiating to the left jaw, accompanied by shortness of breath and episodes of emesis. Given the clinical presentation, the differential diagnosis includes unstable angina, panic attack, posterial wall VA and medication noncompliance upon examination, the patient?s oxygen saturation was 99% on room air, and chest pain improved with sublingual nitroglycerin. Troponin levels were negative, and the ECG revealed new T-wave inversions in leads V1 and V2, with depressions noted in V2 and V3. These findings suggest the possibility of ischemia vs arrhymia in setting of noncompliance DAPT medications and electrolyte abnormalities Plan - Cardiology consulted-recommendation -Follow-up with troponin - Ativan 1 mg PO q6h prn for anxiety/agitation - Zofran 4 mg as needed for nausea/vomiting. #Electrolyte abnormalities #Hypokalemia The patient presented with atypical chest pain, likely secondary to hypokalemia, with a potassium level of 2.4. A BMP could not be obtained earlier due to the patient's ongoing refusal of lab work over the past few days. Plan - Replete as needed - F/U repeat BMP - Monitor in telemetry for possible arrhythmias #Hypertension Patient with patient has a history of hypertension for which she takes amlodipine 10 mg. however have been noncompliant with medications On admission BP 165/70. - amlodipine 10 mg p.o. daily #Diabetes mellitus Patient noted patient having diabetes for which he takes metformin 500 mg p.o. twice daily. On admission glucose 121 A1c 6.3 Plan - Continue insulin sliding scale with Accu-Cheks. - Target blood sugar 140-180 while hospitalized. #?Bipolar disorder - Does not follow-up with psychiatrist, does not recall the medication. - Upon evaluation, the patient was found to lack capacity to make informed medical decisions. She displayed tangential speech and was unable to maintain a coherent conversation. Additionally, she exhibited flights of ideas and was unable to recall the events that led to her hospitalization. Despite her agitation, she denies having suicidal thoughts or any intent to harm others. 10/27- The patient was evaluated by the crisis team, which confirmed that she has the capacity to make informed medical decisions. She demonstrated the ability to understand the relevant information regarding her health, communicated her preferences clearly, and was able to weigh the potential risks and benefits of her treatment options. During the evaluation, the patient was alert and oriented, displaying an appropriate affect and coherent language. She maintained a logical and consistent conversation, recalling the reason for her hospitalization and expressing a clear understanding of her current condition. Her ability articulate her decisions supports her capacity to make autonomous healthcare choices. As a result, no psychiatric placement was deemed necessary. Plan - Advised follow-up outpatient psychiatry/therapist - sand worker referral, awaiting crisis team evaluation- upon evaluation with attending superviors has medical capacity to make her decisions. #?Ashtma/COPD Per chart review patient has uses inhaler at home. No wheezes or crackles heard on auscultation. Plan - Per med rec not taking inhalers. - Breathing tx prn Hospital management: Lines: peripheral IV Diet: Cardiac GI prophylaxis: Protonix 40 mg p.o. DVT prophylaxis: Heparin Subc Disposition: MedSurg for osteomyelitis management. CODE STATUS: Full code Patient assessed under supervision of attending physician and senior resident Dr. Aguilera PGY-2 Tarsha Del Valle MD PGY-1, Internal Medicine Please note: this document was transcribed using voice recognition technology; minor inaccuracies may be present. Attending Provider Attestation/Addendum I have examined the patient, reviewed labs and imaging findings, discussed the case with the resident(s), and reviewed entered orders. I agree with the plan of care as outlined in this note. Dr. Sherley MD
--- NOTE | 2025-10-27 13:21 | PD.RESEVENT ---
Documentation for date of: 10/27/25 Event Note Event Note: Rapid Response at 11:37 am for CHEST PAIN: Rapid Response 11:37 AM for chest pain. Upon arrival, patient reported experiencing sharp substernal pain radiating to her left jaw, rated as 9/10 in intensity, associated with shortness of breath but reproducible to palpation. Vital signs at the time were as follows: temperature 97.2?F, blood pressure 142/74 mmHg, respiratory rate 22 breaths per minute, and oxygen saturation 95% on room air. Prior to this episode, the patient had an episode of emesis for which Zofran was administered. Upon examination, heart sounds were regular, with normal rate and rhythm, and no murmurs were noted. Based on the presentation, an EKG was ordered, along with a BMP, lactate level, troponins. The EKG revealed sinus rhythm with possible T-wave inversion in leads V1 and V2 as well as STD in leads V2 and V3. Patient reports improved chest pain post sublingual nitro. Lab results showed a potassium level of 2.4 and troponin negative. Potassium was repleted with a follow-up BMP, repeat troponin level ordered, cardiology was consulted, and echo placed. Rapid response at 12:04 pm for HYPOTENSION: A rapid response was called due to hypotension, with a blood pressure of 59/36 mmHg and a MAP of 43. Following the initial rapid response, the patient became hypotensive and lethargic after receiving sublingual nitroglycerin and their regular scheduled dose of Ativan. The patient's heart rate and oxygen saturation were within normal limits. Upon physical examination, the patient appeared lethargic and pale. She was placed in Trendelenburg position and a significant increase in blood pressure was noted. An order for 1 liter of LR bolus was placed but blood pressure was already improving prior to fluid administration. At end of rapid blood pressure was 164/80 mmHg and patient?s oxygen saturation remained stable on room air. The patient was subsequently upgraded to telemetry floor for ongoing monitoring. Patient assessed under supervision of attending physician Dr. Lepe and senior resident Dr. Aguilera PGY-2 Tarsha Del Valle MD PGY-1, Internal Medicine Please note: this document was transcribed using voice recognition technology; minor inaccuracies may be present.
[2025-10-27] MEDS: RINGERS LACTATED 1000 ML 1,000 ML 999 ML IV (13:22)
[2025-10-27 13:54] LABS: Hepatitis C Antibody Non Reactive (Non React)
--- NOTE | 2025-10-27 15:29 | ESCONSULT_ITS ---
<Statement entered by Sushila Murphy MD - 10/27/25 23:35> I personally examined evaluated the patient intensive care unit as a telemetry overflow patient known to me has had a CAD stent placement after acute CT underwent stent present complex PCI of the RCA distal branches multiple stents placed very noncompliant never followed with the me as an outpatient extremely unreliable patient not taking medication regularly not on antiplatelet therapy came to the hospital with possible osteomyelitis infection of the toe patient had fairly severe chest pain with typical 45-minute episode with ST depression anterior leads tolerated possible posterior wall myocardial infarction or ischemia patient recommended to have coronary angiogram as I am quite concerned that noncompliance with medication they could be coronary artery occlusion specially RCA and PL branches. She was scheduled for angiogram but she apparently signed out AGAINST MEDICAL ADVICE which is unfortunate. Agree with the treatment plan recommendation as documented by resident physician PGY 2 Dr. Lezama HPI Data of Consult Requesting Physician: Damaris Mercado DO Admitting Provider: Vishal Lepe MD Attending Provider: Damaris Mercado DO Primary Care Provider: Physician No Primary/Family Consult Narrative Reason for consult: chest pain History of present illness: Patient is 65 yr female with PMH of Bipolar disorder, CAD s/p PCI, CT, hypertension, diabetes, ?asthma/copd, PAD s/p left hand amputation who was admitted on 10/24 after finding osteomyelitis infection of the left foot. Since admission patient has been very difficult to handle. She is refusing care from nurses, primary care team, surgery, and ID. Patient had undergone stent placement in proximal RCA and mid RCA in November 2024. RCA occlusion preprocedure was 99%. Patient has not followed up with any installer apprentice since discharge at that time. She is very poor historian unable to recall any medications that she was taking status post stents. Says that she may have been taking some aspirin and possibly Eliquis. She was discharged with Brilinta in November. Further questioning prompted irritation, and patient asked me to leave the room. Rapid response was called earlier today due to chest pain. She stated that pain was sternal, lasting for 45 minutes, improved with nitroglycerin use. Similar in nature to cardiac pain in November. She does not appear to be in any distress at bedside. EKG was reviewed showing ST depression in V2, V3, V4 with tall R waves. Troponins were negative. Labs reviewed noted to have hypokalemia 2.4 hypomagnesia 1.0. Creatinine stable 0.7. Echo from 11/12/24--normal LV size and function, EF 55%. Normal RV size and function. She remains on ceftriaxone and doxycycline for osteomyelitis infection. Repeat echo if patient agrees. Replete potassium and magnesium. There is concern of artery re-stenosis due to noncompliance of DAPT. Will take her for angiogram tomorrow morning. cc:: cc: Damaris Mercado, Review of Systems Review of Systems ROS Unobtainable: unobtainable due to mental status Exam Vital Signs Temp Pulse Resp BP Pulse Ox O2 Del Method 97.8 F 55 L 22 H 59/36 L 90 L Room Air 10/27/25 12:04 10/27/25 12:04 10/27/25 12:04 10/27/25 12:04 10/27/25 12:04 10/27/25 07:02 Narrative Exam deferred as patient refused to be touched. Asked me to be gone. Results Labs 10/27/25 11:55 10/27/25 11:55 Labs: Short CBC 10/27/25 Range/Units 11:55 WBC 7.3 (3.6-11.0) Thou/mm3 Hgb 11.1 L (12.0-16.0) g/dL Hct 34.6 L (36.0-46.0) % Plt Count 389 D (140-440) Thou/mm3 BMP 10/27/25 11:55 Sodium 141 Potassium 2.4 L* D Chloride 105 Carbon Dioxide 23.3 BUN 5 L Creatinine 0.7 Glucose 224 H Calcium 8.5 Cardiac Enzymes 10/27/25 Range/Units 11:55 Troponin I < 0.020 (0.0-0.045) ng/mL Quality Measures Quality Measures none Advance care planning discussed with:: patient Medications Home Medications and Allergies Home Medications ?Medication ?Instructions ?Recorded ?Confirmed ?Type acetaminophen 325 mg tablet (Pain 650 mg PO 4XD PRN pa in 11/11/24 10/25/25 History Relief (acetaminophen)) amlodipine 10 mg tablet 10 mg PO QDAY 11/11/2410/25 History carvedilol 6.25 mg tablet 6.25 mg PO BID 11/11/2410/10 History isosorbide mononitrate 30 mg 30 mg PO QAM 11/11/24 History tablet,extended release 24 hr loperamide 2 mg capsule 2 mg PO Q4H PRN Loose Stool 11/11/24 10/25/25 History losartan 50 mg tablet 50 mg PO BID 11/11/24 History omeprazole 20 mg capsule,delayed 20 mg PO 1XD 11/11/24 10/25/25 History release ondansetron 4 mg disintegrating 4 mg PO 4XD PRN Nausea And Vomiting 11/11/24 10/25/25 History tablet tizanidine 4 mg capsule (Zanaflex) 8 mg PO Q8H PRN mus poonam spasticity 11/11/24 10/25/25 History lorazepam 1 mg tablet (Ativan) 1 mg PO Q6H PRN anxiety 10/25/25 10/25/25 History Allergies Allergy/AdvReac Type Severity Reaction Status Date / Time codeine Allergy Severe Rash Verified 08/17/25 10:59 meperidine (From Demerol) Allergy Severe Rash Verified 08/17/25 10:59 Sulfa (Sulfonamide Allergy Severe Rash Verified 08/17/25 10:59 Antibiotics) Visit Medications Acetaminophen (Acetaminophen 325 Mg Tablet) 650 mg PO Q6H PRN PRN Reason: Fever >101.5 AND PAIN 1-3 Stop: 11/23/25 16:49 Last Admin: 10/26/25 08:58 Dose: 650 mg Albuterol/Ipratropium (Albuterol/Ipratropium (Duoneb) Rt Indira 3 Ml Nebu) 3 ml INH Q4HRRT PRN PRN Reason: wheezing Stop: 11/24/25 07:59 Amlodipine Besylate (Amlodipine Besylate 5 Mg Tablet) 10 mg PO QDAY [facility] Stop: 11/23/25 20:14 Last Admin: 10/27/25 08:20 Dose: 10 mg Aspirin (Aspirin Ec 81 Mg Tabec) 81 mg PO QDAY [facility] Stop: 11/24/25 06:59 Last Admin: 10/27/25 08:20 Dose: 81 mg Clopidogrel Bisulfate (Clopidogrel Bisulfate 75 Mg Tablet) 75 mg PO QDAY [facility] Stop: 11/24/25 08:59 Last Admin: 10/27/25 08:20 Dose: 75 mg Dextrose (Dextrose 50%-Water Inj 50 Ml Syringe) 25 ml IV Q15MIN PRN PRN Reason: BG 50-70 responsive npo pt Stop: 11/23/25 17:04 Dextrose (Dextrose 50%-Water Inj 50 Ml Syringe) 50 ml IV Q15MIN PRN PRN Reason: BG <50 OR BG <70 & pt unresponsive Stop: 11/23/25 17:04 Doxycycline Hyclate (Doxycycline 100 Mg Tablet) 100 mg PO BID [facility] Stop: 11/02/25 20:59 Last Admin: 10/27/25 08:19 Dose: 100 mg Glucagon (Glucagon Inj 1 Mg Vial) 1 mg IM Q15MIN PRN PRN Reason: BG <70, and no IV access Heparin Sodium (Porcine) (Heparin Sod Inj 5000 Unit/Ml Vial) 5,000 unit SC BID [facility] Stop: 11/07/25 20:59 Last Admin: 10/27/25 08:24 Dose: 5,000 unit Ceftriaxone Sodium 2 gm/ (Sodium Chloride) 50 mls @ 100 mls/hr IV QDAY@1400 [facility] Stop: 11/02/25 14:02 Last Admin: 10/26/25 14:53 Dose: Not Given Magnesium Sulfate (Magnesium Sulfate Ivpb) 4 gm in 50 mls @ 12.5 mls/hr IV X1 ONE Stop: 10/27/25 16:59 Last Admin: 10/27/25 13:09 Dose: 12.5 mls/hr Magnesium Sulfate (Magnesium Sulfate Ivpb) 50 mls @ 25 mls/hr IV X1 ONE Stop: 10/27/25 18:59 Insulin Human Lispro (Insulin Lispro (Admelog) 1 Unit/0.01 Ml Unit) 0 unit SC [facility]; Protocol Stop: 11/23/25 20:59 Last Admin: 10/27/25 13:04 Dose: Not Given Lorazepam (Lorazepam 0.5 Mg Tablet) 1 mg PO Q6H PRN PRN Reason: ANXIETY Stop: 10/30/25 09:37 Last Admin: 10/27/25 12:02 Dose: 1 mg Lorazepam (Lorazepam 2 Mg/Ml Vial) 2 mg IVP X1 PRN PRN Reason: Agitation Stop: 11/01/25 10:44 Nicotine (Nicotine Patch 14 Mg/24 Hr Patch.Td24) 14 mg TOP QDAY [facility] Stop: 11/26/25 08:59 Last Admin: 10/27/25 09:14 Dose: 14 mg Ondansetron HCl (Ondansetron Inj 2 Mg/Ml Inj 2 Ml) 4 mg IVP Q6HR PRN; Protocol PRN Reason: NAUSEA OR VOMITING Stop: 11/26/25 10:05 Last Admin: 10/27/25 10:19 Dose: 4 mg Oxycodone HCl (Oxycodone Hcl 5 Mg Ir Tab) 10 mg PO Q6HR PRN PRN Reason: pain 4-10 Stop: 10/29/25 17:40 Last Admin: 10/27/25 03:25 Dose: 10 mg Pantoprazole Sodium (Pantoprazole 40 Mg Tablet) 40 mg PO QDAY [facility] Stop: 11/24/25 08:59 Last Admin: 10/27/25 08:20 Dose: 40 mg Potassium Chloride (Potassium Chloride 20 Meq Tabcr) 40 meq PO X1 ONE Stop: 10/27/25 15:31 Potassium Chloride (Potassium Chloride 20 Meq Tabcr) 20 meq PO X1 ONE Stop: 10/27/25 15:33 Discontinued Medications Acetaminophen (Acetaminophen 325 Mg Tablet) 650 mg PO Q6H PRN PRN Reason: Fever >101.5 Stop: 11/23/25 16:49 Haloperidol (Haloperidol 5 Mg Tablet) 2.5 mg PO X1 ONE Stop: 10/25/25 11:33 Last Admin: 10/25/25 11:44 Dose: 2.5 mg Haloperidol (Haloperidol 5 Mg Tablet) 2.5 mg PO X1 PRN PRN Reason: Agitation Last Admin: 10/25/25 22:17 Dose: 2.5 mg Haloperidol Lactate (Haloperidol Lact Inj 5 Mg/Ml Vial) 2.5 mg IM X1 ONE Stop: 10/25/25 11:30 Last Admin: 10/25/25 11:50 Dose: Not Given Lactated Ringer's (Lactated Ringers) 1,000 mls @ 999 mls/hr IV .Q1H1M ONE Stop: 10/24/25 13:04 Last Infusion: 10/24/25 16:48 Dose: Infused Ceftriaxone Sodium 2 gm/ (Sodium Chloride) 50 mls @ 100 mls/hr IV X1 ONE Stop: 10/24/25 13:29 Last Infusion: 10/24/25 14:35 Dose: Infused Ceftriaxone Sodium 2 gm/ (Sodium Chloride) 50 mls @ 100 mls/hr IV X1 ONE Stop: 10/24/25 14:29 Last Admin: 10/24/25 14:10 Dose: Not Given Cefepime HCl 2 gm/ Sodium (Chloride) 50 mls @ 100 mls/hr IV Q12HR [facility] Stop: 10/31/25 17:00 Last Admin: 10/25/25 21:21 Dose: 100 mls/hr Vancomycin HCl 1,500 mg/ (Sodium Chloride) 500 mls @ 250 mls/hr IV X1 ONE Stop: 10/24/25 19:59 Last Admin: 10/24/25 18:46 Dose: 250 mls/hr Vancomycin HCl (Vancomycin/Water 1gm Ivpb) 200 mls @ 120 mls/hr IV Q12H [facility] Stop: 11/01/25 09:59 Last Admin: 10/25/25 11:29 Dose: Not Given Vancomycin HCl (Vancomycin/Water 1gm Ivpb) 200 mls @ 120 mls/hr IV BID@0930,2130 [facility]; Protocol Stop: 11/01/25 21:29 Last Admin: 10/25/25 21:55 Dose: Not Given Ceftriaxone Sodium 2 gm/ (Sodium Chloride) 50 mls @ 100 mls/hr IV X1 ONE Stop: 10/26/25 21:29 Last Admin: 10/26/25 20:43 Dose: 100 mls/hr Lactated Ringer's (Lactated Ringers) 1,000 mls @ 999 mls/hr IV .Q1H1M ONE Stop: 10/27/25 13:03 Last Admin: 10/27/25 13:22 Dose: 999 mls/hr Magnesium Sulfate (Magnesium Sulfate Ivpb) 50 mls @ 25 mls/hr IV X1 ONE Stop: 10/27/25 15:14 Lactulose (Lactulose Syrup 20 Gm/30 Ml Udc) 20 gm ID X1 ONE; Protocol Stop: 10/26/25 09:36 Lorazepam (Lorazepam 0.5 Mg Tablet) 1 mg PO X1 ONE Stop: 10/24/25 07:48 Last Admin: 10/24/25 08:29 Dose: 1 mg Lorazepam (Lorazepam 2 Mg/Ml Vial) 2 mg IVP X1 ONE Stop: 10/26/25 10:31 Last Admin: 10/26/25 18:29 Dose: Not Given Nicotine (Nicotine Patch 21 Mg/24 Hr Patch.Td24) 21 mg TOP X1 ONE Stop: 10/24/25 12:05 Last Admin: 10/24/25 13:16 Dose: 21 mg Nicotine (Nicotine Patch 21 Mg/24 Hr Patch.Td24) 21 mg TOP X1 ONE Stop: 10/25/25 08:57 Last Admin: 10/25/25 09:51 Dose: 21 mg Nicotine (Nicotine Patch 14 Mg/24 Hr Patch.Td24) 14 mg TOP X1 ONE Stop: 10/26/25 20:12 Last Admin: 10/26/25 20:26 Dose: 14 mg Nitroglycerin (Nitroglycerin 0.4 Mg Subl Btl #25) 0.4 mg SL X1 ONE Stop: 10/27/25 11:42 Last Admin: 10/27/25 11:46 Dose: 0.4 mg Pharmacy Consult (Vancomycin Pharmacy To Dose 1 Each Each) 1 each IV PRN PRN PRN Reason: SSTI Stop: 11/23/25 16:59 Potassium Chloride (Potassium Chloride 20 Meq Tabcr) 120 meq PO X1 ONE Stop: 10/27/25 12:53 Potassium Chloride (Potassium Chloride 10% 20 Meq/15 Ml Udc) 60 meq PO X1 ONE Stop: 10/27/25 13:16 Last Admin: 10/27/25 13:10 Dose: 60 meq Assessment & Plan Plan Patient is a 65 year old female with past medical history of with history of Bipolar disorder, CAD s/p PCI, CT, hypertension, diabetes, asthma, PAD s/p left hand amputation presents to the ED [facility] from assisted living home on 10/24/25 for evaluation following a fall. Found to have a cellulitis on imaging. Admitted for osteomyelitis evaluation and management. Cardiology consulted today after rapid response for chest pain. #Hx single vessel coronary artery disease and acute CT # s/p PCI of proximal and mid RCA #ACS Patient has a history of CT for which cardiac cath was done on 11/16/24-- stent placement in proximal RCA and mid RCA. RCA occlusion preprocedure was 99%. Patient has not followed up with any installer apprentice since discharge at that time. She is very poor historian unable to recall any medications that she was taking status post stents. Says that she may have been taking some aspirin and possibly Eliquis. She was discharged with Brilinta in November. She had RR due to chest pain (on 10/27). Lasted 45 minutes, substernal, relieved with nitroglycerin. EKG was reviewed showing ST depression in V2, V3, V4 with tall R waves. Troponins were negative. Labs reviewed noted to have hypokalemia 2.4, hypomagnesia 1.0. Creatinine stable 0.7. Echo from 11/12/24--normal LV size and function, EF 55%. Normal RV size and function. Concern for re stenosis of stents. -angiogram tomorrow morning -Plan to continue Plavix and aspirin. -heparin drip - Repeat echo if patient agrees. -continue ceftriaxone and doxycycline for osteomyelitis infection. -Replete potassium for >4.0 -repelete magnesium for >2.0 #Hypertension Patient has a history of hypertension, takes amlodipine 10 mg. On admission BP 165/70. - amlodipine 10 mg p.o. daily #Mild headache s/p ground-level fall #Osteomyelitis of distal left metatarsal and proximal phalanx left fifth digit # PAD s/p left hand amputation #Anxiety #Diabetes mellitus #Bipolar disorder #Asthma Primary care team to manage above conditions and ongoing care needs. The patient's management plan was discussed with my attending physician Dr. Murphy. Pretty Patel, PGY-2
--- NOTE | 2025-10-27 15:34 | PC.PT ---
Will cancel PT evaluation. Patient is transferred to ICU.
[2025-10-27] MEDS: cefTRIAXone 2 GM in SODIUM CHLORIDE 0.9% (Popper) 50 ML IV (16:38)
[2025-10-27] MEDS: POTASSIUM CHL 10 mEq IVPB 100 ML 100 MEQ IV ×2 (17:41→19:50)
[2025-10-27] MEDS: Magnesium Sulfate 2 GM Ivpb 50 ML IV (17:42)
--- NOTE | 2025-10-27 20:32 | PC.NURSE ---
Pt refusing care and wants to leave. Pt a/ox3 and gcs 15. Dr. Mendoza came to bedside and discussed benefits of staying and possible risks for leaving hospital including . Pt stated she understood and still wants to leave. AMA paper signed by MD and pt. RN escorted pt to elevator.
--- NOTE | 2025-10-28 11:06 | PC.SS ---
Addendum entered by Marley Major 10/31/25 10:24: SS received call from Chel Ellis from [facility] who was requesting update on patient's dc. SS informed Chel pt left AMA Original Note: late entrY: Patient had left AMA late last night. SS received a visit from [facility]. They confirmed patient was on service with them and are out looking for her. Updated physician team and will notify [facility]
--- NOTE | 2025-10-28 19:09 | EVENTNT_ITS ---
<Statement entered by Obed Perez DO - 10/28/25 19:25> I Obed Perez DO, attest that I was physically present for avendaño portions of evaluation, examined the patient, reviewed the labs and imaging, and discussed the plan of care and management with the IM residents team. I agree with the findings and plans documented above. Documentation for date of: 10/28/25 Event Note Event Note: The patient decided to sign out against medical advice (AMA) after being explained the risks & benefits of leaving before medical clearance/discharge. The patient was determined to be capable of making her own decisions. The patient had the opportunity to ask questions about their condition which were answered to their satisfaction; the patient is aware that they may return for further care at any time as needed. Patient was seen and discussed with my attending physician Dr. Chris ROLON and my senior resident Dr. Fay TABOR PGY-2. Mani Mendoza DO PGY-1
== END 2025-10-27 20:16 | disposition left against medical advice (07) | DRG 638 ==
LOC: SERX 15:28 → SERHOLD 17:10 → S3NX 18:38 → S2SX 10-27 12:38
PROVIDERS: Internal Medicine Infectious Disease; Admitting Provider Student in an Organized Health Care Education/Training Program; Visit Provider Internal Medicine
DX: E11.69 Type 2 diabetes mellitus with other specified complication (principal); M86.172 Other acute osteomyelitis, left ankle and foot; I10 Essential (primary) hypertension; J44.9 Chronic obstructive pulmonary disease, unspecified; F41.9 Anxiety disorder, unspecified; F31.9 Bipolar disorder, unspecified; M85.862 Other specified disorders of bone density and structure, left lower leg; M85.861 Other specified disorders of bone density and structure, right lower leg; F17.210 Nicotine dependence, cigarettes, uncomplicated; R51.9 Headache, unspecified; I25.10 Atherosclerotic heart disease of native coronary artery without angina pectoris; I25.2 Old myocardial infarction; Z95.5 Presence of coronary angioplasty implant and graft; Z89.112 Acquired absence of left hand; W18.30XA Fall on same level, unspecified, initial encounter; R07.89 Other chest pain; Z53.20 Procedure and treatment not carried out because of patient's decision for unspecified reasons; Z79.4 Long term (current) use of insulin; E83.42 Hypomagnesemia; F40.240 Claustrophobia; E11.51 Type 2 diabetes mellitus with diabetic peripheral angiopathy without gangrene; E87.6 Hypokalemia; Z79.82 Long term (current) use of aspirin; Z79.84 Long term (current) use of oral hypoglycemic drugs; Z79.899 Other long term (current) drug therapy; Z91.148 Patient's other noncompliance with medication regimen for other reason; Z88.5 Allergy status to narcotic agent; Z88.2 Allergy status to sulfonamides
CPT/HCPCS: 36415; 51701; 70250; 70450; 71045; 72125; 73590; 73620; 80048; 80053; 80202; 80307; 80320; 81001; 83036; 83605; 83735; 84100; 84484; 85025; 85652; 86140; 86803; 87040; 93005; 93306; 96361; 96365; 99285; J0692; J0696; J1644; J2405; J3374; J3475; J3480; J7050; J7120; J7999; A9270; G0480